=== PATIENT | female | born 1950 | race African-American/Black ===

== ENCOUNTER 2019-03-02 17:11 | Inpatient (IN) | payer MEDICARE, OTHER ==
--- NOTE | 2019-03-02 17:52 | ED Physician Chart ---
ED Chief Complaint/HPI - Patient Information Date Seen:: 03/02/19 Time Seen:: 17:20 Chief Complaint:: Agitation History of Present Illness:: onset x 2 days of agitation and anxiety; no report of trauma, SIs, H/As, neck pain, C/P, SOB, Abd. Pain, or urinary s/s Historian:: Patient, EMS Review:: Nurse's Note Reviewed, Old Chart Reviewed, EMS run form Reviewed ED Review of Systems - Review of Systems General/Constitutional: No fever, No chills, No weight loss, No weakness, No diaphoresis, No edema, No loss of appetite Skin: No skin lesions, No rash, No bruising Head: No headache, No light-headedness Eyes: No loss of vision, No pain, No diplopia ENT: No earache, No nasal drainage, No sore throat, No tinnitus Neck: No neck pain, No swelling, No thyromegaly, No stiffness, No mass noted Cardio Vascular: No chest pain, No palpitations, No PND, No orthopnea, No edema Pulmonary: No SOB, No cough, No sputum, No wheezing GI: No nausea, No vomiting, No diarrhea, No pain, No melena, No hematochezia, No constipation, No hematemesis G/U: No dysuria, No frequency, No hematuria, No nacturia Registered Radiographer: No vaginal discharge, No abnormal vaginal bleed, No contraction Musculoskeletal: No bone or joint pain, No back pain, No muscle pain Endocrine: No polyuria, No polydipsia Psychiatric: Prior psych history, Depression, Anxiety, No suicidal ideation, No homicidal ideation, No auditory hallucination, No visual hallucination Hematopoietic: No bruising, No lymphadenopathy Allergic/Immuno: No urticaria, No angioedema Neurological: No syncope, No focal symptoms, No weakness, No paresthesia, No headache, No seizure, No dizziness, No confusion, No vertigo ED Past Medical History - Past Medical History Obtainable: Yes Past Medical History: HTN Family History: HTN Social History: Non Smoker, No Alcohol, No Drug Use, Single, Care Facility Surgical History: None Psychiatricy History: Depression, Bipolar Medication: Reviewed ED Physical Exam - Physical Examination General/Constitutional: Awake, Well-developed, well-nourished, Alert, No distress, GCS 15, Non-toxic appearing, Ambulatory Head: Atraumatic Eyes: Lids, conjuctiva normal, PERRL, EOMI Skin: Nl inspection, No rash, No skin lesions, No ecchymosis, Well hydrated, No lymphadenopathy ENMT: External ears, nose nl, TM canals nl, Nasal exam nl, Lips, teeth, gums nl , Oropharynx nl, Tonsils nl Neck: Nontender, Full ROM w/o pain, No JVD, No nuchal rigidity, No bruit, No mass, No stridor Respiratory: Nl effort/Exclusion, Clear to Auscultation, No Wheeze/Rhonchi/Rales Cardio Vascular: RRR, No murmur, gallop, rubs, NL S1 S2, Carotid/Femoral/Distal pulses equal bilaterally GI: No tenderness/rebounding/guarding, No organomegaly, No hernia, Normal BS's, Nondistended, No mass/bruits, No McBurney tenderness : No CVA tenderness Extremities: No tenderness or effusion, Full ROM, normal strength in all extremities, No edema, Normal digits & nails Neuro/Psych: Alert/oriented, DTR's symmetric, Normal sensory exam, Normal motor strength, Judgement/insight normal, Mood normal, Normal gait, No focal deficits Other Neuro/Psych comments:: + Psychomotor Agitation; no SIs; Mood/Affect: Labile Misc: Normal back, No paraspinal tenderness ED Labs/Radiology/EKG Results - Lab Results Comments:: Reviewed - EKG Interpretations EKG Time:: 17:52 Rate & Rhythm: 74; NSR Comments:: non-specific st-t changes ED Septic Shock - . Is Septic Shock (SBP<90, OR Lactate>4 mmol\L) present?: No ED Reassessment (Disposition) - Reassessment Reassessment Condition:: Improved - Diagnosis Diagnosis:: Agitation; Medical Clearance; Bipolar Disorder - Aftercare/Follow up Instructions Aftercare/Follow-Up Instructions:: Counseled pt regarding lab results/diagnosis & need follow up, Counseled pt & family regarding lab results/diagnosis & need follow up - Patient Disposition Discharge/Transfer:: Acute Care w/in this hosp Admitted to:: [facility] Condition at Disposition:: Stable, Improved
[2019-03-02 18:29] LABS: % BASOPHILS 0.5 % (0.0-2.0); % EOSINOPHILS 1.6 % (0.0-5.0); % LYMPHOCYTES 30.2 % (20.0-50.0); % MONOCYTES 10.6 % (2.0-10.0); % NEUTROPHILS 57.1 % (40.0-80.0); EOSINOPHILE ABSOLUTE 0.1 Th/cmm (0.1-0.4); HEMATOCRIT 39.7 % (41.0-60); HEMOGLOBIN 12.8 gm/dL (12-16); LYMPHOCYTE ABSOLUTE 1.5 Th/cmm (1.5-3.0); MEAN CELL VOLUME 83.4 fl (81-100); MEAN CORPUSCULAR HEMOGLOBIN 26.8 pg (27.0-31.0); MEAN CORPUSCULAR HGB CONC 32.2 pg (28.0-36.0); MEAN PLATELET VOLUME 8.5 fl; MONOCYTE ABSOLUTE 0.5 Th/cmm (0.3-1.0); NEUTROPHILE ABSOLUTE 2.9 Th/cmm (1.8-8.0); PLATELET COUNT 196 Th/cmm (150-400); RED BLOOD COUNT 4.77 Mil/cmm (3.80-5.20); RED CELL DISTRIBUTION WIDTH 13.5 % (11.5-20.0)
[2019-03-02 18:51] LABS: ALB/GLOB RATIO 1.3 (1.0-1.8); ALKALINE PHOSPHATASE 52 U/L (34-104); ANION GAP 12.4 (7.0-16.0); BILIRUBIN,TOTAL 0.2 mg/dL (0.3-1.0); BUN - UREA NITROGEN 18 mg/dL (7-25); CALCIUM SERUM 9.3 mg/dL (8.6-10.3); CARBON DIOXIDE 28.7 mEq/L (21.0-31.0); CHLORIDE 101 mEq/L (98-107); CHOLESTEROL 167 mg/dL (<200); CREATININE - SERUM 0.6 mg/dL (0.6-1.2); GFR AFRICAN-AMERICAN > 60.0 ml/min (>90); GFR NON AFRICAN-AMERICAN > 60.0 ml/min; GLUCOSE 87 mg/dL (70-105); HDL -HIGH DENSITY LIPOPROTEIN 76 mg/dL (23-92); POTASSIUM SERUM 4.1 mEq/L (3.5-5.1); SGOT 16 U/L (13-39); SGPT/ALT 14 U/L (7-52); SODIUM SERUM 138 mEq/L (136-145); TRIGLYCERIDES 47 mg/dL (<150)
[2019-03-02 18:54] LABS: ACETAMINOPHEN < 10.0 ug/mL (10.0-30.0); SALICYLATES (ASPIRIN) < 25.0 mg/L (30.0-100.0)
[2019-03-02] MEDS ORDERED: Haloperidol Lactate 5 mg/mL 1mL Vial IM ONE (20:00)
[2019-03-02 20:11] VITALS: BP 106/66
[2019-03-02] MEDS ORDERED: Fleet Enema 135 mL RC PRN (23:04)
[2019-03-03] MEDS ORDERED: Fleet Enema 135 mL RC PRN (11:56)
--- NOTE | 2019-03-03 15:34 | History & Physical ---
ADMIT DATE: 03/02/2019 CHIEF COMPLAINT: Medical evaluation and clearance. HISTORY OF PRESENT ILLNESS: This is a 68-year-old -[place] female with history of left above the knee amputation, hypertension, constipation admitted from nursing facility. They will provide the service of Dr. Singh. The patient is not a best historian. Denies chest pain, shortness of breath. The patient was cleared medically through the ER. PAST MEDICAL HISTORY: As mentioned in history present illness. PAST SURGICAL HISTORY: Status post left above the knee amputation. ALLERGIES: No known drug allergies. MEDICATIONS: Tylenol, ____, magnesium, Colace, ____ enema, and Senna. FAMILY MEDICAL HISTORY: Noncontributory. SOCIAL HISTORY: The patient lives in shelter. The patient did smoke, drinks occasionally. REVIEW OF SYSTEMS: GENERAL: Complains of being sleepy. HEAD, EYES, EARS, NOSE, AND THROAT: No blurred vision. LUNGS: No diagnosis of COPD or asthma. HEART: Denies hypertension and diabetes. ABDOMEN: No nausea, vomiting, pain. GENITOURINARY: History of constipation. NEUROLOGIC: No seizure or syncope. PSYCHIATRIC: The patient with a left above the knee amputation. She does not want to tell me the reason behind the surgery. PHYSICAL EXAMINATION: VITAL SIGNS: Blood pressure 106/66, respiration rate is 20, pulse 73, temperature 98.0. GENERAL: Elderly female, appears her stated age. NECK: Supple. No mass. LUNGS: Equal breath sounds, otherwise clear to auscultation. HEART: Regular rate and rhythm without appreciable murmur. ABDOMEN: Soft, nontender, bowel sounds present. EXTREMITIES: Positive left above knee amputation. LABORATORY DATA: WBC 5, hemoglobin 12, hematocrit 39, platelets 186. Sodium 138, potassium 4.1, BUN 8, creatinine 0.6. Troponin negative. TSH 0.2. ASSESSMENT AND PLAN: Anemia, low TSH level, above knee amputation, hypertension, and constipation. Continue the patient on laxative. We will monitor the patient blood pressure closely and we will place patient on proper precaution. We will put the patient on non-steroidal anti-inflammatories. We will continue to monitor the patient closely. JOB# [id number]
[2019-03-03] MEDS: Magnesium Hydroxide (MOM) 30 mL UDC PO SCH (20:41)
--- NOTE | 2019-03-04 03:42 | Psychiatric Evaluation ---
DATE OF SERVICE: 03/02/2019 PATIENT'S AGE: 68. SEX: Female. PHYSICIAN: Dr. Suzanne Singh. CHIEF COMPLAINT: Agitation and aggressive behavior. HISTORY OF PRESENT ILLNESS: The patient is a 68-year-old female who is a resident in [facility]. The patient was transferred to [facility] because of increased agitation and aggressive behavior and the patient was showing more aggressive behavior towards the staff and she tried to hit staff. The patient also was noncompliant with redirections and not able to follow staff instructions. She also was refusing care including refusing to have vital signs taken. The patient has been more angry and more irritable and suspicious and paranoid. Upon arrival to the hospital, the patient started to throw objects towards the staff and she is also having difficulty following staff directions and had to be medicated to calm her down. PAST PSYCHIATRIC HISTORY: The patient has history of psychosis and also has history of schizophrenia. 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 She also has type 2 diabetes mellitus. Also, history of alcohol dependence, in remission. SOCIAL HISTORY: The patient lives in [facility]. No known legal issues or abuse issues. ALLERGIES: No known allergies. MENTAL STATUS EXAMINATION: The patient appears slightly older than her stated age. Anxious. Irritable mood. Flat affect. Thought processes are circumstantial with flight of ideas. The patient denies hallucinations or delusions, but seems to be actively responding. The patient denied suicidal or homicidal ideations, but was throwing objects towards the staff. The patient is alert and oriented to situation, but not to date or place. Intact immediate and recent memory and intact remote memory. Poor insight and poor judgment. Seems to be of average intelligence based on her verbal ability. ASSESSMENT: PRIMARY DIAGNOSIS: Schizophrenic disorder by history. The patient currently is psychotic. SECONDARY DIAGNOSIS: Rule out dementia. TREATMENT PLAN: We will monitor the patient's behavior and condition closely. We will start individual as well as milieu psychotherapy. We will monitor psychotropic medications and will cross titrate Seroquel with Risperdal that she is currently taking. ESTIMATED LENGTH OF STAY: 5-7 days. THE PATIENT'S STRENGTHS AND WEAKNESSES: The [facility]. WEAKNESSES: Resisting care and her poor impulse control. AFTER DISCHARGE PLAN: The patient will be discharged from the hospital with plans for outpatient treatment in [facility] when she returns there. CRITERIA FOR DISCHARGE: Better impulse control and stabilizing on psychotropic medications. JOB# [id number]
--- NOTE | 2019-03-04 11:49 | Internal Medicine Prog Note ---
Internal Medicine Subjective - Subjective Patient seen and examined:: with staff, chart reviewed Patient is:: awake, verbal, interactive, in bed Per staff patient has:: no adverse event, no episodes of fall, poor appetite, tolerating meds Internal Medicine Objective - Results Result Diagrams: 03/02/19 18:05 03/02/19 18:05 Recent Labs: Laboratory Last Values WBC 5.0 Th/cmm (4.8-10.8) 03/02/19 18:05 RBC 4.77 Mil/cmm (3.80-5.20) 03/02/19 18:05 Hgb 12.8 gm/dL (12-16) 03/02/19 18:05 Hct 39.7 % (41.0-60) L 03/02/19 18:05 MCV 83.4 fl (81-100) 03/02/19 18:05 MCH 26.8 pg (27.0-31.0) L 03/02/19 18:05 MCHC Differential 32.2 pg (28.0-36.0) 03/02/19 18:05 RDW 13.5 % (11.5-20.0) 03/02/19 18:05 Plt Count 196 Th/cmm (150-400) 03/02/19 18:05 MPV 8.5 fl 03/02/19 18:05 Neutrophils % 57.1 % (40.0-80.0) 03/02/19 18:05 Lymphocytes % 30.2 % (20.0-50.0) 03/02/19 18:05 Monocytes % 10.6 % (2.0-10.0) H 03/02/19 18:05 Eosinophils % 1.6 % (0.0-5.0) 03/02/19 18:05 Basophils % 0.5 % (0.0-2.0) 03/02/19 18:05 Sodium 138 mEq/L (136-145) 03/02/19 18:05 Potassium 4.1 mEq/L (3.5-5.1) 03/02/19 18:05 Chloride 101 mEq/L (98-107) 03/02/19 18:05 Carbon Dioxide 28.7 mEq/L (21.0-31.0) 03/02/19 18:05 Anion Gap 12.4 (7.0-16.0) 03/02/19 18:05 BUN 18 mg/dL (7-25) 03/02/19 18:05 Creatinine 0.6 mg/dL (0.6-1.2) 03/02/19 18:05 Est GFR ( Amer) > 60.0 ml/min (>90) 03/02/19 18:05 Est GFR (Non-Af Amer) > 60.0 ml/min 03/02/19 18:05 BUN/Creatinine Ratio 30.0 03/02/19 18:05 Glucose 87 mg/dL (70-105) 03/02/19 18:05 Calcium 9.3 mg/dL (8.6-10.3) 03/02/19 18:05 Total Bilirubin 0.2 mg/dL (0.3-1.0) L 03/02/19 18:05 AST 16 U/L (13-39) 03/02/19 18:05 ALT 14 U/L (7-52) 03/02/19 18:05 Alkaline Phosphatase 52 U/L (34-104) 03/02/19 18:05 Troponin I < 0.01 ng/mL (0.01-0.05) L 03/02/19 18:05 Total Protein 7.0 gm/dL (6.0-8.3) 03/02/19 18:05 Albumin 4.0 gm/dL (3.7-5.3) 03/02/19 18:05 Globulin 3.0 gm/dL 03/02/19 18:05 Albumin/Globulin Ratio 1.3 (1.0-1.8) 03/02/19 18:05 Triglycerides 47 mg/dL (<150) 03/02/19 18:05 Cholesterol 167 mg/dL (<200) 03/02/19 18:05 LDL Cholesterol Direct 66 mg/dL (75-193) L 03/02/19 18:05 HDL Cholesterol 76 mg/dL (23-92) 03/02/19 18:05 TSH 0.22 uIU/ml (0.34-5.60) L 03/02/19 18:05 Salicylates < 25.0 mg/L (30.0-100.0) L 03/02/19 18:05 Acetaminophen < 10.0 ug/mL (10.0-30.0) L 03/02/19 18:05 Ethyl Alcohol < 10 mg/dL (0-10) 03/02/19 18:05 - Physical Exam Vitals and I&O: Vital Signs Temp 97.1 F 03/04/19 06:47 Pulse 76 03/04/19 06:47 Resp 18 03/04/19 06:47 BP 100/60 03/04/19 06:47 Pulse Ox 94 03/04/19 06:47 Intake & Output 03/03/19 03/04/19 03/04/19 18:59 06:59 18:59 Intake Total 900 180 Balance 900 180 Intake: Oral 900 180 Other: # Voids 3 3 # Bowel Movements 1 0 Active Medications: Current Medications Acetaminophen (Tylenol) 650 mg PO Q4H PRN PRN Reason: Pain Or Fever above 101 Stop: 05/01/19 23:14 Bisacodyl (Dulcolax 10 Mg Supp) 10 mg RC DAILY PRN PRN Reason: Constipation Stop: 05/01/19 23:15 Bisacodyl (Dulcolax 10 Mg Supp) 10 mg RC DAILY PRN PRN Reason: Constipation Stop: 05/02/19 11:55 Docusate Sodium (Colace) 100 mg PO DAILY RANJAN Stop: 05/02/19 08:59 Last Admin: 03/04/19 08:14 Dose: 100 mg Lorazepam (Ativan) 0.5 mg PO Q4H PRN; Protocol PRN Reason: Anxiety Stop: 05/01/19 21:06 Last Admin: 03/04/19 08:15 Dose: 0.5 mg Magnesium Hydroxide (Milk Of Magnesia) 30 ml PO HS RANJAN Stop: 05/02/19 20:59 Last Admin: 03/03/19 20:41 Dose: 30 ml Quetiapine Fumarate (Seroquel) 50 mg PO HS RANJAN; Protocol Stop: 05/02/19 20:59 Risperidone (Risperdal) 1 mg PO DAILY RANJAN; Protocol Stop: 05/02/19 08:59 Last Admin: 03/04/19 08:15 Dose: 1 mg Senna (Senna) 17.2 mg PO HS RANJAN Stop: 05/02/19 20:59 Last Admin: 03/03/19 20:41 Dose: 17.2 mg Sodium Phosphate (Fleet Enema) 135 ml RC Q2D PRN PRN Reason: Constipation Stop: 05/01/19 23:03 Sodium Phosphate (Fleet Enema) 135 ml RC Q2D PRN PRN Reason: Constipation Stop: 05/02/19 11:55 Trazodone HCl (Desyrel) 25 mg PO HS RANJAN; Protocol Stop: 05/02/19 20:59 Last Admin: 03/03/19 20:41 Dose: 25 mg Zolpidem Tartrate (Ambien) 5 mg PO HS PRN PRN Reason: Insomnia Stop: 05/01/19 21:06 Last Admin: 03/03/19 20:42 Dose: 5 mg General: thin, appears older HEENT: NC/AT, PERRLA, EOMI, thinning hair Neck: Supple, No JVD Lungs: CTAB Cardiovascular: RRR, Normal S1, Normal S2, with murmur Abdomen: soft, thin, positive bowel sound Extremities: excoriation Neurological: no change Internal Medicine Assmt/Plan - Assessment Assessment: ASSESSMENT AND PLAN: Anemia, low TSH level, above knee amputation, hypertension, and constipation. - Plan Plan: PLAN: fall precaution Continue the patient on laxative. We will monitor the patient blood pressure closely and we will place patient on proper precaution. We will put the patient on non-steroidal anti-inflammatories. We will continue to monitor the patient closely.
[2019-03-04] MEDS: Magnesium Hydroxide (MOM) 30 mL UDC PO SCH (20:50)
--- NOTE | 2019-03-04 22:49 | Progress Notes ---
DATE: 03/04/2019 PSYCHIATRIC PROGRESS NOTE SUBJECTIVE: Chart reviewed and the patient interviewed. Also discussed the patient's condition with the staff and reviewed records and labs. The patient is still easily irritable and easily agitated. The patient also is still restless and she is still in angry and in irritable mood. The patient also is answering questions with anger and with yelling and screaming manner. The patient also is still having difficulty with interacting with others. She seems to be paranoid. Also, during my interview, the patient is disheveled and rambling with harsh tone voice. ASSESSMENT: The patient is still agitated and is still psychotic. TREATMENT PLAN: Continue to monitor her behavior and her condition closely. Also continue adjusting psychotropic medications. The patient continued to take Risperdal in a dose of 1 mg in the morning and trazodone 25 mg at bedtime. Seroquel was added at a dose of 50 mg at bedtime and we will continue to cross titrate Risperdal with Seroquel and continue to work on behavioral modification and follow up closely. JOB# [id number]
--- NOTE | 2019-03-05 10:34 | Internal Medicine Prog Note ---
Internal Medicine Subjective - Subjective Patient seen and examined:: with staff, chart reviewed Patient is:: awake, verbal, interactive, in bed Per staff patient has:: no adverse event, no episodes of fall, poor appetite, tolerating meds Internal Medicine Objective - Results Result Diagrams: 03/02/19 18:05 03/02/19 18:05 Recent Labs: Laboratory Last Values WBC 5.0 Th/cmm (4.8-10.8) 03/02/19 18:05 RBC 4.77 Mil/cmm (3.80-5.20) 03/02/19 18:05 Hgb 12.8 gm/dL (12-16) 03/02/19 18:05 Hct 39.7 % (41.0-60) L 03/02/19 18:05 MCV 83.4 fl (81-100) 03/02/19 18:05 MCH 26.8 pg (27.0-31.0) L 03/02/19 18:05 MCHC Differential 32.2 pg (28.0-36.0) 03/02/19 18:05 RDW 13.5 % (11.5-20.0) 03/02/19 18:05 Plt Count 196 Th/cmm (150-400) 03/02/19 18:05 MPV 8.5 fl 03/02/19 18:05 Neutrophils % 57.1 % (40.0-80.0) 03/02/19 18:05 Lymphocytes % 30.2 % (20.0-50.0) 03/02/19 18:05 Monocytes % 10.6 % (2.0-10.0) H 03/02/19 18:05 Eosinophils % 1.6 % (0.0-5.0) 03/02/19 18:05 Basophils % 0.5 % (0.0-2.0) 03/02/19 18:05 Sodium 138 mEq/L (136-145) 03/02/19 18:05 Potassium 4.1 mEq/L (3.5-5.1) 03/02/19 18:05 Chloride 101 mEq/L (98-107) 03/02/19 18:05 Carbon Dioxide 28.7 mEq/L (21.0-31.0) 03/02/19 18:05 Anion Gap 12.4 (7.0-16.0) 03/02/19 18:05 BUN 18 mg/dL (7-25) 03/02/19 18:05 Creatinine 0.6 mg/dL (0.6-1.2) 03/02/19 18:05 Est GFR ( Amer) > 60.0 ml/min (>90) 03/02/19 18:05 Est GFR (Non-Af Amer) > 60.0 ml/min 03/02/19 18:05 BUN/Creatinine Ratio 30.0 03/02/19 18:05 Glucose 87 mg/dL (70-105) 03/02/19 18:05 Calcium 9.3 mg/dL (8.6-10.3) 03/02/19 18:05 Total Bilirubin 0.2 mg/dL (0.3-1.0) L 03/02/19 18:05 AST 16 U/L (13-39) 03/02/19 18:05 ALT 14 U/L (7-52) 03/02/19 18:05 Alkaline Phosphatase 52 U/L (34-104) 03/02/19 18:05 Troponin I < 0.01 ng/mL (0.01-0.05) L 03/02/19 18:05 Total Protein 7.0 gm/dL (6.0-8.3) 03/02/19 18:05 Albumin 4.0 gm/dL (3.7-5.3) 03/02/19 18:05 Globulin 3.0 gm/dL 03/02/19 18:05 Albumin/Globulin Ratio 1.3 (1.0-1.8) 03/02/19 18:05 Triglycerides 47 mg/dL (<150) 03/02/19 18:05 Cholesterol 167 mg/dL (<200) 03/02/19 18:05 LDL Cholesterol Direct 66 mg/dL (75-193) L 03/02/19 18:05 HDL Cholesterol 76 mg/dL (23-92) 03/02/19 18:05 TSH 0.22 uIU/ml (0.34-5.60) L 03/02/19 18:05 Salicylates < 25.0 mg/L (30.0-100.0) L 03/02/19 18:05 Acetaminophen < 10.0 ug/mL (10.0-30.0) L 03/02/19 18:05 Ethyl Alcohol < 10 mg/dL (0-10) 03/02/19 18:05 RPR NONREACTIVE (NONREACTIVE) 03/02/19 18:05 - Physical Exam Vitals and I&O: Vital Signs Temp 97.4 F 03/05/19 06:28 Pulse 68 03/05/19 06:28 Resp 18 03/05/19 06:28 BP 112/68 03/05/19 06:28 Pulse Ox 96 03/05/19 06:28 Intake & Output 03/04/19 03/05/19 03/05/19 18:59 06:59 18:59 Intake Total 1000 120 Balance 1000 120 Intake: Oral 1000 120 Other: # Voids 3 2 # Bowel Movements 1 0 Active Medications: Current Medications Acetaminophen (Tylenol) 650 mg PO Q4H PRN PRN Reason: Pain Or Fever above 101 Stop: 05/01/19 23:14 Bisacodyl (Dulcolax 10 Mg Supp) 10 mg RC DAILY PRN PRN Reason: Constipation Stop: 05/01/19 23:15 Bisacodyl (Dulcolax 10 Mg Supp) 10 mg RC DAILY PRN PRN Reason: Constipation Stop: 05/02/19 11:55 Docusate Sodium (Colace) 100 mg PO DAILY RANJAN Stop: 05/02/19 08:59 Last Admin: 03/05/19 09:02 Dose: 100 mg Lorazepam (Ativan) 0.5 mg PO Q4H PRN; Protocol PRN Reason: Anxiety Stop: 05/01/19 21:06 Last Admin: 03/04/19 08:15 Dose: 0.5 mg Magnesium Hydroxide (Milk Of Magnesia) 30 ml PO HS RANJAN Stop: 05/02/19 20:59 Last Admin: 03/04/19 20:50 Dose: 30 ml Quetiapine Fumarate (Seroquel) 50 mg PO HS RANJAN; Protocol Stop: 05/02/19 20:59 Last Admin: 03/04/19 20:50 Dose: 50 mg Quetiapine Fumarate (Seroquel) 25 mg PO DAILY RANJAN; Protocol Stop: 05/04/19 08:59 Senna (Senna) 17.2 mg PO HS RANJAN Stop: 05/02/19 20:59 Last Admin: 03/04/19 20:50 Dose: 17.2 mg Sodium Phosphate (Fleet Enema) 135 ml RC Q2D PRN PRN Reason: Constipation Stop: 05/01/19 23:03 Sodium Phosphate (Fleet Enema) 135 ml RC Q2D PRN PRN Reason: Constipation Stop: 05/02/19 11:55 Trazodone HCl (Desyrel) 25 mg PO HS RANJAN; Protocol Stop: 05/02/19 20:59 Last Admin: 03/04/19 20:50 Dose: 25 mg Zolpidem Tartrate (Ambien) 5 mg PO HS PRN PRN Reason: Insomnia Stop: 05/01/19 21:06 Last Admin: 03/04/19 20:52 Dose: 5 mg General: thin, appears older HEENT: NC/AT, PERRLA, EOMI, thinning hair Neck: Supple, No JVD Lungs: CTAB Cardiovascular: RRR, Normal S1, Normal S2, with murmur Abdomen: soft, thin, positive bowel sound Extremities: excoriation Neurological: no change Internal Medicine Assmt/Plan - Assessment Assessment: ASSESSMENT AND PLAN: Anemia, low TSH level, above knee amputation, hypertension, and constipation. - Plan Plan: PLAN: fall precaution Continue the patient on laxative. We will monitor the patient blood pressure closely and we will place patient on proper precaution. We will put the patient on non-steroidal anti-inflammatories. We will continue to monitor the patient closely.
[2019-03-05] MEDS: Magnesium Hydroxide (MOM) 30 mL UDC PO SCH (20:39)
--- NOTE | 2019-03-06 00:39 | Progress Notes ---
DATE: SUBJECTIVE: Chart reviewed and the patient interviewed. Also discussed the patient's condition with the staff and reviewed records and labs. The patient is still anxious and he is still depressed and withdrawn. The patient also is still easily agitated and wants to be left alone. Also, at times she seems to be confused and restless. Otherwise, the patient is compliant with taking Risperdal and Seroquel. ASSESSMENT: The patient is still anxious and he still needs a lot of redirections. TREATMENT PLAN: We will monitor and her condition closely. Also, we will start Risperdal and we will increase Seroquel to 25 mg in the morning and 50 mg at bedtime. Also, we will continue to work on her poor impulse control and in coping and we will continue to follow up. JOB# [id number]
--- NOTE | 2019-03-06 10:19 | Internal Medicine Prog Note ---
Internal Medicine Subjective - Subjective Service Date: 03/06/19 Patient is:: awake, verbal, interactive, in bed Per staff patient has:: no adverse event, no episodes of fall, poor appetite, tolerating meds Internal Medicine Objective - Results Result Diagrams: 03/02/19 18:05 03/02/19 18:05 Recent Labs: Laboratory Last Values WBC 5.0 Th/cmm (4.8-10.8) 03/02/19 18:05 RBC 4.77 Mil/cmm (3.80-5.20) 03/02/19 18:05 Hgb 12.8 gm/dL (12-16) 03/02/19 18:05 Hct 39.7 % (41.0-60) L 03/02/19 18:05 MCV 83.4 fl (81-100) 03/02/19 18:05 MCH 26.8 pg (27.0-31.0) L 03/02/19 18:05 MCHC Differential 32.2 pg (28.0-36.0) 03/02/19 18:05 RDW 13.5 % (11.5-20.0) 03/02/19 18:05 Plt Count 196 Th/cmm (150-400) 03/02/19 18:05 MPV 8.5 fl 03/02/19 18:05 Neutrophils % 57.1 % (40.0-80.0) 03/02/19 18:05 Lymphocytes % 30.2 % (20.0-50.0) 03/02/19 18:05 Monocytes % 10.6 % (2.0-10.0) H 03/02/19 18:05 Eosinophils % 1.6 % (0.0-5.0) 03/02/19 18:05 Basophils % 0.5 % (0.0-2.0) 03/02/19 18:05 Sodium 138 mEq/L (136-145) 03/02/19 18:05 Potassium 4.1 mEq/L (3.5-5.1) 03/02/19 18:05 Chloride 101 mEq/L (98-107) 03/02/19 18:05 Carbon Dioxide 28.7 mEq/L (21.0-31.0) 03/02/19 18:05 Anion Gap 12.4 (7.0-16.0) 03/02/19 18:05 BUN 18 mg/dL (7-25) 03/02/19 18:05 Creatinine 0.6 mg/dL (0.6-1.2) 03/02/19 18:05 Est GFR ( Amer) > 60.0 ml/min (>90) 03/02/19 18:05 Est GFR (Non-Af Amer) > 60.0 ml/min 03/02/19 18:05 BUN/Creatinine Ratio 30.0 03/02/19 18:05 Glucose 87 mg/dL (70-105) 03/02/19 18:05 Calcium 9.3 mg/dL (8.6-10.3) 03/02/19 18:05 Total Bilirubin 0.2 mg/dL (0.3-1.0) L 03/02/19 18:05 AST 16 U/L (13-39) 03/02/19 18:05 ALT 14 U/L (7-52) 03/02/19 18:05 Alkaline Phosphatase 52 U/L (34-104) 03/02/19 18:05 Troponin I < 0.01 ng/mL (0.01-0.05) L 03/02/19 18:05 Total Protein 7.0 gm/dL (6.0-8.3) 03/02/19 18:05 Albumin 4.0 gm/dL (3.7-5.3) 03/02/19 18:05 Globulin 3.0 gm/dL 03/02/19 18:05 Albumin/Globulin Ratio 1.3 (1.0-1.8) 03/02/19 18:05 Triglycerides 47 mg/dL (<150) 03/02/19 18:05 Cholesterol 167 mg/dL (<200) 03/02/19 18:05 LDL Cholesterol Direct 66 mg/dL (75-193) L 03/02/19 18:05 HDL Cholesterol 76 mg/dL (23-92) 03/02/19 18:05 TSH 0.22 uIU/ml (0.34-5.60) L 03/02/19 18:05 Salicylates < 25.0 mg/L (30.0-100.0) L 03/02/19 18:05 Acetaminophen < 10.0 ug/mL (10.0-30.0) L 03/02/19 18:05 Ethyl Alcohol < 10 mg/dL (0-10) 03/02/19 18:05 RPR NONREACTIVE (NONREACTIVE) 03/02/19 18:05 - Physical Exam Vitals and I&O: Vital Signs Temp 98.4 F 03/06/19 06:18 Pulse 85 03/06/19 06:18 Resp 19 03/06/19 06:18 BP 103/68 03/06/19 06:18 Pulse Ox 97 03/06/19 06:18 Intake & Output 03/05/19 03/06/19 03/06/19 18:59 06:59 18:59 Intake Total 950 300 Balance 950 300 Intake: Oral 950 300 Other: # Voids 4 1 # Bowel Movements 1 0 Active Medications: Current Medications Acetaminophen (Tylenol) 650 mg PO Q4H PRN PRN Reason: Pain Or Fever above 101 Stop: 05/01/19 23:14 Bisacodyl (Dulcolax 10 Mg Supp) 10 mg RC DAILY PRN PRN Reason: Constipation Stop: 05/01/19 23:15 Bisacodyl (Dulcolax 10 Mg Supp) 10 mg RC DAILY PRN PRN Reason: Constipation Stop: 05/02/19 11:55 Docusate Sodium (Colace) 100 mg PO DAILY RANJAN Stop: 05/02/19 08:59 Last Admin: 03/06/19 08:59 Dose: 100 mg Lorazepam (Ativan) 0.5 mg PO Q4H PRN; Protocol PRN Reason: Anxiety Stop: 05/01/19 21:06 Last Admin: 03/04/19 08:15 Dose: 0.5 mg Magnesium Hydroxide (Milk Of Magnesia) 30 ml PO HS RANJAN Stop: 05/02/19 20:59 Last Admin: 03/05/19 20:39 Dose: Not Given Quetiapine Fumarate (Seroquel) 50 mg PO HS RANJAN; Protocol Stop: 05/02/19 20:59 Last Admin: 03/05/19 20:39 Dose: Not Given Quetiapine Fumarate (Seroquel) 25 mg PO DAILY RANJAN; Protocol Stop: 05/04/19 08:59 Senna (Senna) 17.2 mg PO HS RANJAN Stop: 05/02/19 20:59 Last Admin: 03/05/19 20:39 Dose: Not Given Sodium Phosphate (Fleet Enema) 135 ml RC Q2D PRN PRN Reason: Constipation Stop: 05/01/19 23:03 Sodium Phosphate (Fleet Enema) 135 ml RC Q2D PRN PRN Reason: Constipation Stop: 05/02/19 11:55 Trazodone HCl (Desyrel) 25 mg PO HS RANJAN; Protocol Stop: 05/02/19 20:59 Last Admin: 03/05/19 20:32 Dose: 25 mg Zolpidem Tartrate (Ambien) 5 mg PO HS PRN PRN Reason: Insomnia Stop: 05/01/19 21:06 Last Admin: 03/04/19 20:52 Dose: 5 mg General: thin, appears older HEENT: NC/AT, PERRLA, EOMI, thinning hair Neck: Supple, No JVD Lungs: CTAB Cardiovascular: RRR, Normal S1, Normal S2, with murmur Abdomen: soft, thin, positive bowel sound Extremities: excoriation Neurological: no change Internal Medicine Assmt/Plan - Assessment Assessment: Anemia, low TSH level, above knee amputation, hypertension, and constipation. - Plan Plan: fall precautions continue current plan of care Nutritional Asmnt/Malnutr-PDOC - Dietary Evaluation Malnutrition Findings (Please click <Entered> for more info): Nutritional Asmnt/Malnutrition Start: 03/05/19 10: 32 Text: Status: Complete Freq: Protocol: Document 03/05/19 10:32 LCHENG (Rec: 03/05/19 10:40 [email or web address] [email or web address]) Nutritional Asmnt/Malnutrition Patient General Information Nutritional Screening Moderate Risk Diagnosis psychosis Pertinent Medical Hx/Surgical Hx HTN Subjective Information Per EMR, PO intake 100%. Current Diet Order/ Nutrition Support CCHO Pertinent Medications colace, seroquel, senna Pertinent Labs 03/02 reviewed Nutritional Hx/Data Height 5 ft 4 in Height (Calculated Centimeters) 162.6 Current Weight (lbs) 110 lb Weight (Calculated Kilograms) 49.9 Weight (Calculated Grams) 55304.2 [place] Body Weight 120 Body Mass Index (BMI) 18.8 Weight Status Approriate GI Symptoms GI Symptoms None Last BM 03/04 Difficult in: None Skin Integrity/Comment: intact Current %PO Good (75-100%) Estimated Nutritional Goals BEE in Kcals: Using Current wt Calories/Kcals/Kg 25-30 Kcals Calculated 4131-6094 Protein: Using Current wt Protein g/k Protein Calculated 50 Fluid: ml 1250-1500ml (1ml/kcal) Nutritional Problem No current Nutrition Prob Problem N/A Malnutrition Alert Is there a minimum of two criteria No selected? Query Text:Check all the applicable criteria. A minimum of two criteria are recommended for diagnosis of either severe or non-severe malnutrition. Malnutrition Related to Morbid Obesity Malnutrition related to morbid obesity No Intervention/Recommendation Comments 1. Continue with [facility] diet as ordered. 2. Monitor PO intake, wt, labs and skin integrity 3. F/U as low risk in 7 days Expected Outcomes/Goals Expected Outcomes/Goals 1. PO intake to meet at least 75% of nutritional needs. 2. Wt stability, skin to remain intact, labs to approach WNL.
[2019-03-06] MEDS: Magnesium Hydroxide (MOM) 30 mL UDC PO SCH (21:08)
--- NOTE | 2019-03-07 04:44 | Progress Notes ---
DATE: 03/06/[address] Singh. SUBJECTIVE: Case was discussed with staff of the patient, reviewed records. This is a 68-year-old female, who came from [facility] because of increasing agitation and aggressive behavior. She was too aggressive towards staff. She is trying to hit staff, noncompliant with redirection and medication, refusing care, refusing to have vital signs taken, suspicious, paranoid, try to throw objects towards the staff. The patient continues to be withdrawn, isolating herself, anxious, easily agitated. The Seroquel was increased yesterday to 25 mg in the morning and 50 mg at bedtime. She continues to be easily agitated, continues to have poor insight, unable to make safe plan for self-care. No side effects to the medication, no sedation, no nausea, and no extrapyramidal symptoms. We will continue to work with the patient in group therapy, milieu therapy, and adjust the medications as needed. JOB# [id number]
--- NOTE | 2019-03-07 13:24 | Progress Notes ---
DATE: 03/07/2019 Case was discussed with staff of the patient, reviewed records. The patient continues to be irritable, easily agitated, continues to have poor insight about her behavior, tried to hit staff, unpredictable and impulsive, needing redirection. She is sleeping better, eating better. No side effects from the medication, no sedation, no nausea, no extrapyramidal symptoms. We will continue to work with the patient in group therapy, milieu therapy, and adjust the medication as needed. JOB# [id number]
--- NOTE | 2019-03-07 16:04 | Internal Medicine Prog Note ---
Internal Medicine Subjective - Subjective Service Date: 03/07/19 Patient is:: awake, verbal, interactive, in bed Per staff patient has:: no adverse event, no episodes of fall, poor appetite, tolerating meds Internal Medicine Objective - Results Result Diagrams: 03/02/19 18:05 03/02/19 18:05 Recent Labs: Laboratory Last Values WBC 5.0 Th/cmm (4.8-10.8) 03/02/19 18:05 RBC 4.77 Mil/cmm (3.80-5.20) 03/02/19 18:05 Hgb 12.8 gm/dL (12-16) 03/02/19 18:05 Hct 39.7 % (41.0-60) L 03/02/19 18:05 MCV 83.4 fl (81-100) 03/02/19 18:05 MCH 26.8 pg (27.0-31.0) L 03/02/19 18:05 MCHC Differential 32.2 pg (28.0-36.0) 03/02/19 18:05 RDW 13.5 % (11.5-20.0) 03/02/19 18:05 Plt Count 196 Th/cmm (150-400) 03/02/19 18:05 MPV 8.5 fl 03/02/19 18:05 Neutrophils % 57.1 % (40.0-80.0) 03/02/19 18:05 Lymphocytes % 30.2 % (20.0-50.0) 03/02/19 18:05 Monocytes % 10.6 % (2.0-10.0) H 03/02/19 18:05 Eosinophils % 1.6 % (0.0-5.0) 03/02/19 18:05 Basophils % 0.5 % (0.0-2.0) 03/02/19 18:05 Sodium 138 mEq/L (136-145) 03/02/19 18:05 Potassium 4.1 mEq/L (3.5-5.1) 03/02/19 18:05 Chloride 101 mEq/L (98-107) 03/02/19 18:05 Carbon Dioxide 28.7 mEq/L (21.0-31.0) 03/02/19 18:05 Anion Gap 12.4 (7.0-16.0) 03/02/19 18:05 BUN 18 mg/dL (7-25) 03/02/19 18:05 Creatinine 0.6 mg/dL (0.6-1.2) 03/02/19 18:05 Est GFR ( Amer) > 60.0 ml/min (>90) 03/02/19 18:05 Est GFR (Non-Af Amer) > 60.0 ml/min 03/02/19 18:05 BUN/Creatinine Ratio 30.0 03/02/19 18:05 Glucose 87 mg/dL (70-105) 03/02/19 18:05 Calcium 9.3 mg/dL (8.6-10.3) 03/02/19 18:05 Total Bilirubin 0.2 mg/dL (0.3-1.0) L 03/02/19 18:05 AST 16 U/L (13-39) 03/02/19 18:05 ALT 14 U/L (7-52) 03/02/19 18:05 Alkaline Phosphatase 52 U/L (34-104) 03/02/19 18:05 Troponin I < 0.01 ng/mL (0.01-0.05) L 03/02/19 18:05 Total Protein 7.0 gm/dL (6.0-8.3) 03/02/19 18:05 Albumin 4.0 gm/dL (3.7-5.3) 03/02/19 18:05 Globulin 3.0 gm/dL 03/02/19 18:05 Albumin/Globulin Ratio 1.3 (1.0-1.8) 03/02/19 18:05 Triglycerides 47 mg/dL (<150) 03/02/19 18:05 Cholesterol 167 mg/dL (<200) 03/02/19 18:05 LDL Cholesterol Direct 66 mg/dL (75-193) L 03/02/19 18:05 HDL Cholesterol 76 mg/dL (23-92) 03/02/19 18:05 TSH 0.22 uIU/ml (0.34-5.60) L 03/02/19 18:05 Salicylates < 25.0 mg/L (30.0-100.0) L 03/02/19 18:05 Acetaminophen < 10.0 ug/mL (10.0-30.0) L 03/02/19 18:05 Ethyl Alcohol < 10 mg/dL (0-10) 03/02/19 18:05 RPR NONREACTIVE (NONREACTIVE) 03/02/19 18:05 - Physical Exam Vitals and I&O: Vital Signs Temp 98.2 F 03/07/19 06:33 Pulse 63 03/07/19 06:33 Resp 18 03/07/19 08:00 BP 104/65 03/07/19 06:33 Pulse Ox 97 03/07/19 06:33 Intake & Output 03/06/19 03/07/19 03/07/19 18:59 06:59 18:59 Intake Total 1000 120 Balance 1000 120 Intake: Oral 1000 120 Other: # Voids 4 3 # Bowel Movements 1 Active Medications: Current Medications Acetaminophen (Tylenol) 650 mg PO Q4H PRN PRN Reason: Pain Or Fever above 101 Stop: 05/01/19 23:14 Bisacodyl (Dulcolax 10 Mg Supp) 10 mg RC DAILY PRN PRN Reason: Constipation Stop: 05/01/19 23:15 Bisacodyl (Dulcolax 10 Mg Supp) 10 mg RC DAILY PRN PRN Reason: Constipation Stop: 05/02/19 11:55 Docusate Sodium (Colace) 100 mg PO DAILY RANJAN Stop: 05/02/19 08:59 Last Admin: 03/07/19 09:06 Dose: 100 mg Lorazepam (Ativan) 0.5 mg PO Q4H PRN; Protocol PRN Reason: Anxiety Stop: 05/01/19 21:06 Last Admin: 03/04/19 08:15 Dose: 0.5 mg Magnesium Hydroxide (Milk Of Magnesia) 30 ml PO HS RANJAN Stop: 05/02/19 20:59 Last Admin: 03/06/19 21:08 Dose: 30 ml Quetiapine Fumarate (Seroquel) 50 mg PO HS RANJAN; Protocol Stop: 05/02/19 20:59 Last Admin: 03/06/19 21:08 Dose: 50 mg Quetiapine Fumarate (Seroquel) 25 mg PO DAILY RANJAN; Protocol Stop: 05/04/19 08:59 Senna (Senna) 17.2 mg PO HS RANJAN Stop: 05/02/19 20:59 Last Admin: 03/06/19 21:07 Dose: 17.2 mg Sodium Phosphate (Fleet Enema) 135 ml RC Q2D PRN PRN Reason: Constipation Stop: 05/01/19 23:03 Sodium Phosphate (Fleet Enema) 135 ml RC Q2D PRN PRN Reason: Constipation Stop: 05/02/19 11:55 Trazodone HCl (Desyrel) 25 mg PO HS RANJAN; Protocol Stop: 05/02/19 20:59 Last Admin: 03/06/19 21:08 Dose: 25 mg Zolpidem Tartrate (Ambien) 5 mg PO HS PRN PRN Reason: Insomnia Stop: 05/01/19 21:06 Last Admin: 03/04/19 20:52 Dose: 5 mg General: thin, appears older HEENT: NC/AT, PERRLA, EOMI, thinning hair Neck: Supple, No JVD Lungs: CTAB Cardiovascular: RRR, Normal S1, Normal S2, with murmur Abdomen: soft, thin, positive bowel sound Extremities: excoriation Neurological: no change Internal Medicine Assmt/Plan - Assessment Assessment: Anemia, low TSH level, above knee amputation, hypertension, and constipation. - Plan Plan: fall precautions continue current plan of care Nutritional Asmnt/Malnutr-PDOC - Dietary Evaluation Malnutrition Findings (Please click <Entered> for more info): Nutritional Asmnt/Malnutrition Start: 03/05/19 10: 32 Text: Status: Complete Freq: Protocol: Document 03/05/19 10:32 LCHENG (Rec: 03/05/19 10:40 LCHENG [email or web address]) Nutritional Asmnt/Malnutrition Patient General Information Nutritional Screening Moderate Risk Diagnosis psychosis Pertinent Medical Hx/Surgical Hx HTN Subjective Information Per EMR, PO intake 100%. Current Diet Order/ Nutrition Support CCHO Pertinent Medications colace, seroquel, senna Pertinent Labs 03/02 reviewed Nutritional Hx/Data Height 5 ft 4 in Height (Calculated Centimeters) 162.6 Current Weight (lbs) 110 lb Weight (Calculated Kilograms) 49.9 Weight (Calculated Grams) 48536.2 [place] Body Weight 120 Body Mass Index (BMI) 18.8 Weight Status Approriate GI Symptoms GI Symptoms None Last BM 03/04 Difficult in: None Skin Integrity/Comment: intact Current %PO Good (75-100%) Estimated Nutritional Goals BEE in Kcals: Using Current wt Calories/Kcals/Kg 25-30 Kcals Calculated 6422-8826 Protein: Using Current wt Protein g/k Protein Calculated 50 Fluid: ml 1250-1500ml (1ml/kcal) Nutritional Problem No current Nutrition Prob Problem N/A Malnutrition Alert Is there a minimum of two criteria No selected? Query Text:Check all the applicable criteria. A minimum of two criteria are recommended for diagnosis of either severe or non-severe malnutrition. Malnutrition Related to Morbid Obesity Malnutrition related to morbid obesity No Intervention/Recommendation Comments 1. Continue with [facility] diet as ordered. 2. Monitor PO intake, wt, labs and skin integrity 3. F/U as low risk in 7 days Expected Outcomes/Goals Expected Outcomes/Goals 1. PO intake to meet at least 75% of nutritional needs. 2. Wt stability, skin to remain intact, labs to approach WNL.
[2019-03-07] MEDS: Magnesium Hydroxide (MOM) 30 mL UDC PO SCH (21:13)
--- NOTE | 2019-03-08 16:54 | Internal Medicine Prog Note ---
Internal Medicine Subjective - Subjective Service Date: 03/08/19 Patient is:: awake, verbal, interactive, in bed Per staff patient has:: no adverse event, no episodes of fall, poor appetite, tolerating meds Internal Medicine Objective - Results Result Diagrams: 03/02/19 18:05 03/02/19 18:05 Recent Labs: Laboratory Last Values WBC 5.0 Th/cmm (4.8-10.8) 03/02/19 18:05 RBC 4.77 Mil/cmm (3.80-5.20) 03/02/19 18:05 Hgb 12.8 gm/dL (12-16) 03/02/19 18:05 Hct 39.7 % (41.0-60) L 03/02/19 18:05 MCV 83.4 fl (81-100) 03/02/19 18:05 MCH 26.8 pg (27.0-31.0) L 03/02/19 18:05 MCHC Differential 32.2 pg (28.0-36.0) 03/02/19 18:05 RDW 13.5 % (11.5-20.0) 03/02/19 18:05 Plt Count 196 Th/cmm (150-400) 03/02/19 18:05 MPV 8.5 fl 03/02/19 18:05 Neutrophils % 57.1 % (40.0-80.0) 03/02/19 18:05 Lymphocytes % 30.2 % (20.0-50.0) 03/02/19 18:05 Monocytes % 10.6 % (2.0-10.0) H 03/02/19 18:05 Eosinophils % 1.6 % (0.0-5.0) 03/02/19 18:05 Basophils % 0.5 % (0.0-2.0) 03/02/19 18:05 Sodium 138 mEq/L (136-145) 03/02/19 18:05 Potassium 4.1 mEq/L (3.5-5.1) 03/02/19 18:05 Chloride 101 mEq/L (98-107) 03/02/19 18:05 Carbon Dioxide 28.7 mEq/L (21.0-31.0) 03/02/19 18:05 Anion Gap 12.4 (7.0-16.0) 03/02/19 18:05 BUN 18 mg/dL (7-25) 03/02/19 18:05 Creatinine 0.6 mg/dL (0.6-1.2) 03/02/19 18:05 Est GFR ( Amer) > 60.0 ml/min (>90) 03/02/19 18:05 Est GFR (Non-Af Amer) > 60.0 ml/min 03/02/19 18:05 BUN/Creatinine Ratio 30.0 03/02/19 18:05 Glucose 87 mg/dL (70-105) 03/02/19 18:05 Calcium 9.3 mg/dL (8.6-10.3) 03/02/19 18:05 Total Bilirubin 0.2 mg/dL (0.3-1.0) L 03/02/19 18:05 AST 16 U/L (13-39) 03/02/19 18:05 ALT 14 U/L (7-52) 03/02/19 18:05 Alkaline Phosphatase 52 U/L (34-104) 03/02/19 18:05 Troponin I < 0.01 ng/mL (0.01-0.05) L 03/02/19 18:05 Total Protein 7.0 gm/dL (6.0-8.3) 03/02/19 18:05 Albumin 4.0 gm/dL (3.7-5.3) 03/02/19 18:05 Globulin 3.0 gm/dL 03/02/19 18:05 Albumin/Globulin Ratio 1.3 (1.0-1.8) 03/02/19 18:05 Triglycerides 47 mg/dL (<150) 03/02/19 18:05 Cholesterol 167 mg/dL (<200) 03/02/19 18:05 LDL Cholesterol Direct 66 mg/dL (75-193) L 03/02/19 18:05 HDL Cholesterol 76 mg/dL (23-92) 03/02/19 18:05 TSH 0.22 uIU/ml (0.34-5.60) L 03/02/19 18:05 Salicylates < 25.0 mg/L (30.0-100.0) L 03/02/19 18:05 Acetaminophen < 10.0 ug/mL (10.0-30.0) L 03/02/19 18:05 Ethyl Alcohol < 10 mg/dL (0-10) 03/02/19 18:05 RPR NONREACTIVE (NONREACTIVE) 03/02/19 18:05 - Physical Exam Vitals and I&O: Vital Signs Temp 97.0 F 03/08/19 08:37 Pulse 65 03/08/19 08:37 Resp 19 03/08/19 08:37 BP 109/70 03/08/19 08:37 Pulse Ox 100 03/08/19 08:37 Intake & Output 03/07/19 03/08/19 03/08/19 18:59 06:59 18:59 Intake Total 120 Balance 120 Intake: Oral 120 Other: # Voids 3 Active Medications: Current Medications Acetaminophen (Tylenol) 650 mg PO Q4H PRN PRN Reason: Pain Or Fever above 101 Stop: 05/01/19 23:14 Last Admin: 03/08/19 09:18 Dose: 650 mg Bisacodyl (Dulcolax 10 Mg Supp) 10 mg RC DAILY PRN PRN Reason: Constipation Stop: 05/01/19 23:15 Bisacodyl (Dulcolax 10 Mg Supp) 10 mg RC DAILY PRN PRN Reason: Constipation Stop: 05/02/19 11:55 Docusate Sodium (Colace) 100 mg PO DAILY RANJAN Stop: 05/02/19 08:59 Last Admin: 03/08/19 09:13 Dose: 100 mg Lorazepam (Ativan) 0.5 mg PO Q4H PRN; Protocol PRN Reason: Anxiety Stop: 05/01/19 21:06 Last Admin: 03/04/19 08:15 Dose: 0.5 mg Magnesium Hydroxide (Milk Of Magnesia) 30 ml PO HS RANJAN Stop: 05/02/19 20:59 Last Admin: 03/07/19 21:13 Dose: 30 ml Quetiapine Fumarate (Seroquel) 50 mg PO HS RANJAN; Protocol Stop: 05/02/19 20:59 Last Admin: 03/07/19 21:13 Dose: 50 mg Quetiapine Fumarate (Seroquel) 25 mg PO DAILY RANJAN; Protocol Stop: 05/04/19 08:59 Last Admin: 03/08/19 09:19 Dose: 25 mg Senna (Senna) 17.2 mg PO HS RANJAN Stop: 05/02/19 20:59 Last Admin: 03/07/19 21:14 Dose: 17.2 mg Sodium Phosphate (Fleet Enema) 135 ml RC Q2D PRN PRN Reason: Constipation Stop: 05/01/19 23:03 Sodium Phosphate (Fleet Enema) 135 ml RC Q2D PRN PRN Reason: Constipation Stop: 05/02/19 11:55 Trazodone HCl (Desyrel) 25 mg PO HS RANJAN; Protocol Stop: 05/02/19 20:59 Last Admin: 03/07/19 21:14 Dose: 25 mg Zolpidem Tartrate (Ambien) 5 mg PO HS PRN PRN Reason: Insomnia Stop: 05/01/19 21:06 Last Admin: 03/07/19 21:21 Dose: 5 mg General: thin, appears older HEENT: NC/AT, PERRLA, EOMI, thinning hair Neck: Supple, No JVD Lungs: CTAB Cardiovascular: RRR, Normal S1, Normal S2, with murmur Abdomen: soft, thin, positive bowel sound Extremities: excoriation Neurological: no change Internal Medicine Assmt/Plan - Assessment Assessment: Anemia, low TSH level, above knee amputation, hypertension, and constipation. - Plan Plan: fall precautions continue current plan of care Nutritional Asmnt/Malnutr-PDOC - Dietary Evaluation Malnutrition Findings (Please click <Entered> for more info): Nutritional Asmnt/Malnutrition Start: 03/05/19 10: 32 Text: Status: Complete Freq: Protocol: Document 03/05/19 10:32 [email or web address] (Rec: 03/05/19 10:40 [facility] Nutritional Asmnt/Malnutrition Patient General Information Nutritional Screening Moderate Risk Diagnosis psychosis Pertinent Medical Hx/Surgical Hx HTN Subjective Information Per EMR, PO intake 100%. Current Diet Order/ Nutrition Support CCHO Pertinent Medications colace, seroquel, senna Pertinent Labs 03/02 reviewed Nutritional Hx/Data Height 5 ft 4 in Height (Calculated Centimeters) 162.6 Current Weight (lbs) 110 lb Weight (Calculated Kilograms) 49.9 Weight (Calculated Grams) 75054.2 [place] Body Weight 120 Body Mass Index (BMI) 18.8 Weight Status Approriate GI Symptoms GI Symptoms None Last BM 03/04 Difficult in: None Skin Integrity/Comment: intact Current %PO Good (75-100%) Estimated Nutritional Goals BEE in Kcals: Using Current wt Calories/Kcals/Kg 25-30 Kcals Calculated 9643-8879 Protein: Using Current wt Protein g/k Protein Calculated 50 Fluid: ml 1250-1500ml (1ml/kcal) Nutritional Problem No current Nutrition Prob Problem N/A Malnutrition Alert Is there a minimum of two criteria No selected? Query Text:Check all the applicable criteria. A minimum of two criteria are recommended for diagnosis of either severe or non-severe malnutrition. Malnutrition Related to Morbid Obesity Malnutrition related to morbid obesity No Intervention/Recommendation Comments 1. Continue with [facility] diet as ordered. 2. Monitor PO intake, wt, labs and skin integrity 3. F/U as low risk in 7 days Expected Outcomes/Goals Expected Outcomes/Goals 1. PO intake to meet at least 75% of nutritional needs. 2. Wt stability, skin to remain intact, labs to approach WNL.
[2019-03-08] MEDS: Magnesium Hydroxide (MOM) 30 mL UDC PO SCH (21:35)
--- NOTE | 2019-03-08 23:04 | Progress Notes ---
DATE: 03/08/2019 Case was discussed with staff of the patient, reviewed records. The patient continues to be unpredictable, impulsive, needing redirection. Continues to be easily agitated, trying to hit staff at times. She is sleeping better, eating better. No side effects with the medication, no sedation, no nausea, no extrapyramidal symptoms. She tolerated the increase in Seroquel with no side effects. I will continue outpatient group therapy, milieu therapy, and adjust medications as needed. JOB# [id number]
--- NOTE | 2019-03-09 14:04 | Internal Medicine Prog Note ---
Internal Medicine Subjective - Subjective Service Date: 03/09/19 Patient is:: awake, verbal, interactive, in bed Per staff patient has:: no adverse event, no episodes of fall, poor appetite, tolerating meds Internal Medicine Objective - Results Result Diagrams: 03/02/19 18:05 03/02/19 18:05 Recent Labs: Laboratory Last Values WBC 5.0 Th/cmm (4.8-10.8) 03/02/19 18:05 RBC 4.77 Mil/cmm (3.80-5.20) 03/02/19 18:05 Hgb 12.8 gm/dL (12-16) 03/02/19 18:05 Hct 39.7 % (41.0-60) L 03/02/19 18:05 MCV 83.4 fl (81-100) 03/02/19 18:05 MCH 26.8 pg (27.0-31.0) L 03/02/19 18:05 MCHC Differential 32.2 pg (28.0-36.0) 03/02/19 18:05 RDW 13.5 % (11.5-20.0) 03/02/19 18:05 Plt Count 196 Th/cmm (150-400) 03/02/19 18:05 MPV 8.5 fl 03/02/19 18:05 Neutrophils % 57.1 % (40.0-80.0) 03/02/19 18:05 Lymphocytes % 30.2 % (20.0-50.0) 03/02/19 18:05 Monocytes % 10.6 % (2.0-10.0) H 03/02/19 18:05 Eosinophils % 1.6 % (0.0-5.0) 03/02/19 18:05 Basophils % 0.5 % (0.0-2.0) 03/02/19 18:05 Sodium 138 mEq/L (136-145) 03/02/19 18:05 Potassium 4.1 mEq/L (3.5-5.1) 03/02/19 18:05 Chloride 101 mEq/L (98-107) 03/02/19 18:05 Carbon Dioxide 28.7 mEq/L (21.0-31.0) 03/02/19 18:05 Anion Gap 12.4 (7.0-16.0) 03/02/19 18:05 BUN 18 mg/dL (7-25) 03/02/19 18:05 Creatinine 0.6 mg/dL (0.6-1.2) 03/02/19 18:05 Est GFR ( Amer) > 60.0 ml/min (>90) 03/02/19 18:05 Est GFR (Non-Af Amer) > 60.0 ml/min 03/02/19 18:05 BUN/Creatinine Ratio 30.0 03/02/19 18:05 Glucose 87 mg/dL (70-105) 03/02/19 18:05 Calcium 9.3 mg/dL (8.6-10.3) 03/02/19 18:05 Total Bilirubin 0.2 mg/dL (0.3-1.0) L 03/02/19 18:05 AST 16 U/L (13-39) 03/02/19 18:05 ALT 14 U/L (7-52) 03/02/19 18:05 Alkaline Phosphatase 52 U/L (34-104) 03/02/19 18:05 Troponin I < 0.01 ng/mL (0.01-0.05) L 03/02/19 18:05 Total Protein 7.0 gm/dL (6.0-8.3) 03/02/19 18:05 Albumin 4.0 gm/dL (3.7-5.3) 03/02/19 18:05 Globulin 3.0 gm/dL 03/02/19 18:05 Albumin/Globulin Ratio 1.3 (1.0-1.8) 03/02/19 18:05 Triglycerides 47 mg/dL (<150) 03/02/19 18:05 Cholesterol 167 mg/dL (<200) 03/02/19 18:05 LDL Cholesterol Direct 66 mg/dL (75-193) L 03/02/19 18:05 HDL Cholesterol 76 mg/dL (23-92) 03/02/19 18:05 TSH 0.22 uIU/ml (0.34-5.60) L 03/02/19 18:05 Salicylates < 25.0 mg/L (30.0-100.0) L 03/02/19 18:05 Acetaminophen < 10.0 ug/mL (10.0-30.0) L 03/02/19 18:05 Ethyl Alcohol < 10 mg/dL (0-10) 03/02/19 18:05 RPR NONREACTIVE (NONREACTIVE) 03/02/19 18:05 - Physical Exam Vitals and I&O: Vital Signs Temp 0 F 03/09/19 06:25 Pulse 65 03/08/19 08:37 Resp 18 03/09/19 07:47 BP 109/70 03/08/19 08:37 Pulse Ox 100 03/08/19 08:37 Intake & Output 03/08/19 03/09/19 03/09/19 18:59 06:59 18:59 Intake Total 1000 120 Balance 1000 120 Intake: Oral 1000 120 Other: # Voids 3 3 # Bowel Movements 1 0 Active Medications: Current Medications Acetaminophen (Tylenol) 650 mg PO Q4H PRN PRN Reason: Pain Or Fever above 101 Stop: 05/01/19 23:14 Last Admin: 03/08/19 09:18 Dose: 650 mg Bisacodyl (Dulcolax 10 Mg Supp) 10 mg RC DAILY PRN PRN Reason: Constipation Stop: 05/02/19 11:55 Docusate Sodium (Colace) 100 mg PO DAILY RANJAN Stop: 05/02/19 08:59 Last Admin: 03/09/19 09:01 Dose: Not Given Lorazepam (Ativan) 0.5 mg PO Q4H PRN; Protocol PRN Reason: Anxiety Stop: 05/01/19 21:06 Last Admin: 03/04/19 08:15 Dose: 0.5 mg Magnesium Hydroxide (Milk Of Magnesia) 30 ml PO HS RANJAN Stop: 05/02/19 20:59 Last Admin: 03/08/19 21:35 Dose: Not Given Quetiapine Fumarate (Seroquel) 25 mg PO DAILY RANJAN; Protocol Stop: 05/04/19 08:59 Last Admin: 03/09/19 09:01 Dose: Not Given Quetiapine Fumarate (Seroquel) 50 mg PO HS RANAJN; Protocol Stop: 05/02/19 20:59 Senna (Senna) 17.2 mg PO HS RANJAN Stop: 05/02/19 20:59 Last Admin: 03/08/19 21:25 Dose: Not Given Sodium Phosphate (Fleet Enema) 135 ml RC Q2D PRN PRN Reason: Constipation Stop: 05/02/19 11:55 Trazodone HCl (Desyrel) 25 mg PO HS RANJAN; Protocol Stop: 05/02/19 20:59 Last Admin: 03/08/19 21:24 Dose: 25 mg Zolpidem Tartrate (Ambien) 5 mg PO HS PRN PRN Reason: Insomnia Stop: 05/01/19 21:06 Last Admin: 03/07/19 21:21 Dose: 5 mg General: thin, appears older HEENT: NC/AT, PERRLA, EOMI, thinning hair Neck: Supple, No JVD Lungs: CTAB Cardiovascular: RRR, Normal S1, Normal S2, with murmur Abdomen: soft, thin, positive bowel sound Extremities: excoriation Neurological: no change Internal Medicine Assmt/Plan - Assessment Assessment: Anemia, low TSH level, above knee amputation, hypertension, and constipation. - Plan Plan: fall precautions continue current plan of care Nutritional Asmnt/Malnutr-PDOC - Dietary Evaluation Malnutrition Findings (Please click <Entered> for more info): Nutritional Asmnt/Malnutrition Start: 03/05/19 10: 32 Text: Status: Complete Freq: Protocol: Document 03/05/19 10:32 LCHENG (Rec: 03/05/19 10:40 [email or web address]) Nutritional Asmnt/Malnutrition Patient General Information Nutritional Screening Moderate Risk Diagnosis psychosis Pertinent Medical Hx/Surgical Hx HTN Subjective Information Per EMR, PO intake 100%. Current Diet Order/ Nutrition Support CCHO Pertinent Medications colace, seroquel, senna Pertinent Labs 03/02 reviewed Nutritional Hx/Data Height 5 ft 4 in Height (Calculated Centimeters) 162.6 Current Weight (lbs) 110 lb Weight (Calculated Kilograms) 49.9 Weight (Calculated Grams) 85856.2 [place] Body Weight 120 Body Mass Index (BMI) 18.8 Weight Status Approriate GI Symptoms GI Symptoms None Last BM 03/04 Difficult in: None Skin Integrity/Comment: intact Current %PO Good (75-100%) Estimated Nutritional Goals BEE in Kcals: Using Current wt Calories/Kcals/Kg 25-30 Kcals Calculated 3629-5974 Protein: Using Current wt Protein g/k Protein Calculated 50 Fluid: ml 1250-1500ml (1ml/kcal) Nutritional Problem No current Nutrition Prob Problem N/A Malnutrition Alert Is there a minimum of two criteria No selected? Query Text:Check all the applicable criteria. A minimum of two criteria are recommended for diagnosis of either severe or non-severe malnutrition. Malnutrition Related to Morbid Obesity Malnutrition related to morbid obesity No Intervention/Recommendation Comments 1. Continue with CCHO diet as ordered. 2. Monitor PO intake, wt, labs and skin integrity 3. F/U as low risk in 7 days Expected Outcomes/Goals Expected Outcomes/Goals 1. PO intake to meet at least 75% of nutritional needs. 2. Wt stability, skin to remain intact, labs to approach WNL.
[2019-03-09] MEDS: Magnesium Hydroxide (MOM) 30 mL UDC PO SCH (22:07)
--- NOTE | 2019-03-10 00:39 | Progress Notes ---
DATE: 03/09/2019 SUMMARY: Case was discussed with staff of the patient and reviewed records. The patient isolates herself. She continues to have poor insight. She continues to be unable to make safe plan for her self-care, easily agitated, trying to hit staff at times. No side effects to the medication, no sedation, no nausea, and no extrapyramidal symptoms. We will continue to work with the patient in group therapy, milieu therapy, and adjust the medication as needed. JOB# [id number]
[2019-03-10] MEDS: Haldol Oral Sol.(concentrate) 10 mg/5 mL Udc PO SCH ×3 (08:59→21:00)
--- NOTE | 2019-03-10 12:40 | Internal Medicine Prog Note ---
Internal Medicine Subjective - Subjective Service Date: 03/10/19 Patient is:: awake, verbal, interactive, in bed Per staff patient has:: no adverse event, no episodes of fall, poor appetite, tolerating meds Internal Medicine Objective - Results Result Diagrams: 03/02/19 18:05 03/02/19 18:05 Recent Labs: Laboratory Last Values WBC 5.0 Th/cmm (4.8-10.8) 03/02/19 18:05 RBC 4.77 Mil/cmm (3.80-5.20) 03/02/19 18:05 Hgb 12.8 gm/dL (12-16) 03/02/19 18:05 Hct 39.7 % (41.0-60) L 03/02/19 18:05 MCV 83.4 fl (81-100) 03/02/19 18:05 MCH 26.8 pg (27.0-31.0) L 03/02/19 18:05 MCHC Differential 32.2 pg (28.0-36.0) 03/02/19 18:05 RDW 13.5 % (11.5-20.0) 03/02/19 18:05 Plt Count 196 Th/cmm (150-400) 03/02/19 18:05 MPV 8.5 fl 03/02/19 18:05 Neutrophils % 57.1 % (40.0-80.0) 03/02/19 18:05 Lymphocytes % 30.2 % (20.0-50.0) 03/02/19 18:05 Monocytes % 10.6 % (2.0-10.0) H 03/02/19 18:05 Eosinophils % 1.6 % (0.0-5.0) 03/02/19 18:05 Basophils % 0.5 % (0.0-2.0) 03/02/19 18:05 Sodium 138 mEq/L (136-145) 03/02/19 18:05 Potassium 4.1 mEq/L (3.5-5.1) 03/02/19 18:05 Chloride 101 mEq/L (98-107) 03/02/19 18:05 Carbon Dioxide 28.7 mEq/L (21.0-31.0) 03/02/19 18:05 Anion Gap 12.4 (7.0-16.0) 03/02/19 18:05 BUN 18 mg/dL (7-25) 03/02/19 18:05 Creatinine 0.6 mg/dL (0.6-1.2) 03/02/19 18:05 Est GFR ( Amer) > 60.0 ml/min (>90) 03/02/19 18:05 Est GFR (Non-Af Amer) > 60.0 ml/min 03/02/19 18:05 BUN/Creatinine Ratio 30.0 03/02/19 18:05 Glucose 87 mg/dL (70-105) 03/02/19 18:05 Calcium 9.3 mg/dL (8.6-10.3) 03/02/19 18:05 Total Bilirubin 0.2 mg/dL (0.3-1.0) L 03/02/19 18:05 AST 16 U/L (13-39) 03/02/19 18:05 ALT 14 U/L (7-52) 03/02/19 18:05 Alkaline Phosphatase 52 U/L (34-104) 03/02/19 18:05 Troponin I < 0.01 ng/mL (0.01-0.05) L 03/02/19 18:05 Total Protein 7.0 gm/dL (6.0-8.3) 03/02/19 18:05 Albumin 4.0 gm/dL (3.7-5.3) 03/02/19 18:05 Globulin 3.0 gm/dL 03/02/19 18:05 Albumin/Globulin Ratio 1.3 (1.0-1.8) 03/02/19 18:05 Triglycerides 47 mg/dL (<150) 03/02/19 18:05 Cholesterol 167 mg/dL (<200) 03/02/19 18:05 LDL Cholesterol Direct 66 mg/dL (75-193) L 03/02/19 18:05 HDL Cholesterol 76 mg/dL (23-92) 03/02/19 18:05 TSH 0.22 uIU/ml (0.34-5.60) L 03/02/19 18:05 Salicylates < 25.0 mg/L (30.0-100.0) L 03/02/19 18:05 Acetaminophen < 10.0 ug/mL (10.0-30.0) L 03/02/19 18:05 Ethyl Alcohol < 10 mg/dL (0-10) 03/02/19 18:05 RPR NONREACTIVE (NONREACTIVE) 03/02/19 18:05 - Physical Exam Vitals and I&O: Vital Signs Temp 98.3 F 03/10/19 06:05 Pulse 68 03/10/19 06:05 Resp 18 03/10/19 06:05 BP 107/65 03/10/19 06:05 Pulse Ox 100 03/10/19 06:05 Intake & Output 03/09/19 03/10/19 03/10/19 18:59 06:59 18:59 Intake Total 900 120 Balance 900 120 Intake: Oral 900 120 Other: # Voids 3 2 # Bowel Movements 1 0 Stool Characteristics Hard Hard Active Medications: Current Medications Acetaminophen (Tylenol) 650 mg PO Q4H PRN PRN Reason: Pain Or Fever above 101 Stop: 05/01/19 23:14 Last Admin: 03/08/19 09:18 Dose: 650 mg Bisacodyl (Dulcolax 10 Mg Supp) 10 mg RC DAILY PRN PRN Reason: Constipation Stop: 05/02/19 11:55 Docusate Sodium (Colace) 100 mg PO DAILY RANJAN Stop: 05/02/19 08:59 Last Admin: 03/10/19 08:59 Dose: Not Given Haloperidol Lactate (Haldol Concentrate 10mg/5ml Susp) 5 mg PO TID RANJAN; Protocol Stop: 05/09/19 08:59 Last Admin: 03/10/19 08:59 Dose: Not Given Lorazepam (Ativan) 0.5 mg PO Q4H PRN; Protocol PRN Reason: Anxiety Stop: 05/01/19 21:06 Last Admin: 03/04/19 08:15 Dose: 0.5 mg Magnesium Hydroxide (Milk Of Magnesia) 30 ml PO HS RANJAN Stop: 05/02/19 20:59 Last Admin: 03/09/19 22:07 Dose: Not Given Quetiapine Fumarate (Seroquel) 25 mg PO DAILY RANJAN; Protocol Stop: 05/04/19 08:59 Last Admin: 03/10/19 08:59 Dose: Not Given Quetiapine Fumarate (Seroquel) 50 mg PO HS RANJAN; Protocol Stop: 05/02/19 20:59 Last Admin: 03/09/19 22:08 Dose: Not Given Senna (Senna) 17.2 mg PO HS RANJAN Stop: 05/02/19 20:59 Last Admin: 03/09/19 22:08 Dose: Not Given Sodium Phosphate (Fleet Enema) 135 ml RC Q2D PRN PRN Reason: Constipation Stop: 05/02/19 11:55 Trazodone HCl (Desyrel) 25 mg PO HS RANJAN; Protocol Stop: 05/02/19 20:59 Last Admin: 03/09/19 22:08 Dose: Not Given Zolpidem Tartrate (Ambien) 5 mg PO HS PRN PRN Reason: Insomnia Stop: 05/01/19 21:06 Last Admin: 03/07/19 21:21 Dose: 5 mg General: thin, appears older HEENT: NC/AT, PERRLA, EOMI, thinning hair Neck: Supple, No JVD Lungs: CTAB Cardiovascular: RRR, Normal S1, Normal S2, with murmur Abdomen: soft, thin, positive bowel sound Extremities: excoriation Neurological: no change Internal Medicine Assmt/Plan - Assessment Assessment: Anemia, low TSH level, above knee amputation, hypertension, and constipation. - Plan Plan: fall precautions continue current plan of care Nutritional Asmnt/Malnutr-PDOC - Dietary Evaluation Malnutrition Findings (Please click <Entered> for more info): Nutritional Asmnt/Malnutrition Start: 03/05/19 10: 32 Text: Status: Complete Freq: Protocol: Document 03/05/19 10:32 LCHENG (Rec: 03/05/19 10:40 [email or web address]) Nutritional Asmnt/Malnutrition Patient General Information Nutritional Screening Moderate Risk Diagnosis psychosis Pertinent Medical Hx/Surgical Hx HTN Subjective Information Per EMR, PO intake 100%. Current Diet Order/ Nutrition Support CCHO Pertinent Medications colace, seroquel, senna Pertinent Labs 03/02 reviewed Nutritional Hx/Data Height 5 ft 4 in Height (Calculated Centimeters) 162.6 Current Weight (lbs) 110 lb Weight (Calculated Kilograms) 49.9 Weight (Calculated Grams) 37652.2 [place] Body Weight 120 Body Mass Index (BMI) 18.8 Weight Status Approriate GI Symptoms GI Symptoms None Last BM 03/04 Difficult in: None Skin Integrity/Comment: intact Current %PO Good (75-100%) Estimated Nutritional Goals BEE in Kcals: Using Current wt Calories/Kcals/Kg 25-30 Kcals Calculated 3123-2959 Protein: Using Current wt Protein g/k Protein Calculated 50 Fluid: ml 1250-1500ml (1ml/kcal) Nutritional Problem No current Nutrition Prob Problem N/A Malnutrition Alert Is there a minimum of two criteria No selected? Query Text:Check all the applicable criteria. A minimum of two criteria are recommended for diagnosis of either severe or non-severe malnutrition. Malnutrition Related to Morbid Obesity Malnutrition related to morbid obesity No Intervention/Recommendation Comments 1. Continue with [facility] diet as ordered. 2. Monitor PO intake, wt, labs and skin integrity 3. F/U as low risk in 7 days Expected Outcomes/Goals Expected Outcomes/Goals 1. PO intake to meet at least 75% of nutritional needs. 2. Wt stability, skin to remain intact, labs to approach WNL.
[2019-03-10] MEDS: Magnesium Hydroxide (MOM) 30 mL UDC PO SCH (20:47)
[2019-03-11] MEDS: Haldol Oral Sol.(concentrate) 10 mg/5 mL Udc PO SCH ×3 (09:02→21:34)
--- NOTE | 2019-03-11 11:39 | Internal Medicine Prog Note ---
Internal Medicine Subjective - Subjective Service Date: 03/11/19 Patient is:: awake, verbal, interactive, in bed Per staff patient has:: no adverse event, no episodes of fall, poor appetite, tolerating meds Internal Medicine Objective - Results Result Diagrams: 03/02/19 18:05 03/02/19 18:05 Recent Labs: Laboratory Last Values WBC 5.0 Th/cmm (4.8-10.8) 03/02/19 18:05 RBC 4.77 Mil/cmm (3.80-5.20) 03/02/19 18:05 Hgb 12.8 gm/dL (12-16) 03/02/19 18:05 Hct 39.7 % (41.0-60) L 03/02/19 18:05 MCV 83.4 fl (81-100) 03/02/19 18:05 MCH 26.8 pg (27.0-31.0) L 03/02/19 18:05 MCHC Differential 32.2 pg (28.0-36.0) 03/02/19 18:05 RDW 13.5 % (11.5-20.0) 03/02/19 18:05 Plt Count 196 Th/cmm (150-400) 03/02/19 18:05 MPV 8.5 fl 03/02/19 18:05 Neutrophils % 57.1 % (40.0-80.0) 03/02/19 18:05 Lymphocytes % 30.2 % (20.0-50.0) 03/02/19 18:05 Monocytes % 10.6 % (2.0-10.0) H 03/02/19 18:05 Eosinophils % 1.6 % (0.0-5.0) 03/02/19 18:05 Basophils % 0.5 % (0.0-2.0) 03/02/19 18:05 Sodium 138 mEq/L (136-145) 03/02/19 18:05 Potassium 4.1 mEq/L (3.5-5.1) 03/02/19 18:05 Chloride 101 mEq/L (98-107) 03/02/19 18:05 Carbon Dioxide 28.7 mEq/L (21.0-31.0) 03/02/19 18:05 Anion Gap 12.4 (7.0-16.0) 03/02/19 18:05 BUN 18 mg/dL (7-25) 03/02/19 18:05 Creatinine 0.6 mg/dL (0.6-1.2) 03/02/19 18:05 Est GFR ( Amer) > 60.0 ml/min (>90) 03/02/19 18:05 Est GFR (Non-Af Amer) > 60.0 ml/min 03/02/19 18:05 BUN/Creatinine Ratio 30.0 03/02/19 18:05 Glucose 87 mg/dL (70-105) 03/02/19 18:05 Calcium 9.3 mg/dL (8.6-10.3) 03/02/19 18:05 Total Bilirubin 0.2 mg/dL (0.3-1.0) L 03/02/19 18:05 AST 16 U/L (13-39) 03/02/19 18:05 ALT 14 U/L (7-52) 03/02/19 18:05 Alkaline Phosphatase 52 U/L (34-104) 03/02/19 18:05 Troponin I < 0.01 ng/mL (0.01-0.05) L 03/02/19 18:05 Total Protein 7.0 gm/dL (6.0-8.3) 03/02/19 18:05 Albumin 4.0 gm/dL (3.7-5.3) 03/02/19 18:05 Globulin 3.0 gm/dL 03/02/19 18:05 Albumin/Globulin Ratio 1.3 (1.0-1.8) 03/02/19 18:05 Triglycerides 47 mg/dL (<150) 03/02/19 18:05 Cholesterol 167 mg/dL (<200) 03/02/19 18:05 LDL Cholesterol Direct 66 mg/dL (75-193) L 03/02/19 18:05 HDL Cholesterol 76 mg/dL (23-92) 03/02/19 18:05 TSH 0.22 uIU/ml (0.34-5.60) L 03/02/19 18:05 Salicylates < 25.0 mg/L (30.0-100.0) L 03/02/19 18:05 Acetaminophen < 10.0 ug/mL (10.0-30.0) L 03/02/19 18:05 Ethyl Alcohol < 10 mg/dL (0-10) 03/02/19 18:05 RPR NONREACTIVE (NONREACTIVE) 03/02/19 18:05 - Physical Exam Vitals and I&O: Vital Signs Temp 98.6 F 03/10/19 14:32 Pulse 99 03/10/19 14:32 Resp 20 03/11/19 08:00 BP 108/61 03/10/19 14:32 Pulse Ox 97 03/10/19 14:32 Intake & Output 03/10/19 03/11/19 03/11/19 18:59 06:59 18:59 Intake Total 120 Balance 120 Intake: Oral 120 Other: # Voids 3 # Bowel Movements 2 Stool Characteristics Hard Active Medications: Current Medications Acetaminophen (Tylenol) 650 mg PO Q4H PRN PRN Reason: Pain Or Fever above 101 Stop: 05/01/19 23:14 Last Admin: 03/08/19 09:18 Dose: 650 mg Bisacodyl (Dulcolax 10 Mg Supp) 10 mg RC DAILY PRN PRN Reason: Constipation Stop: 05/02/19 11:55 Docusate Sodium (Colace) 100 mg PO DAILY RANJAN Stop: 05/02/19 08:59 Last Admin: 03/11/19 09:02 Dose: Not Given Haloperidol Lactate (Haldol Concentrate 10mg/5ml Susp) 5 mg PO TID RANJAN; Protocol Stop: 05/09/19 08:59 Last Admin: 03/11/19 09:02 Dose: Not Given Lorazepam (Ativan) 0.5 mg PO Q4H PRN; Protocol PRN Reason: Anxiety Stop: 05/01/19 21:06 Last Admin: 03/04/19 08:15 Dose: 0.5 mg Magnesium Hydroxide (Milk Of Magnesia) 30 ml PO HS RANJAN Stop: 05/02/19 20:59 Last Admin: 03/10/19 20:47 Dose: Not Given Quetiapine Fumarate (Seroquel) 25 mg PO DAILY RANJAN; Protocol Stop: 05/04/19 08:59 Last Admin: 03/11/19 09:02 Dose: Not Given Quetiapine Fumarate (Seroquel) 50 mg PO HS RANJAN; Protocol Stop: 05/02/19 20:59 Last Admin: 03/10/19 20:47 Dose: Not Given Senna (Senna) 17.2 mg PO HS RANJAN Stop: 05/02/19 20:59 Last Admin: 03/10/19 20:47 Dose: Not Given Sodium Phosphate (Fleet Enema) 135 ml RC Q2D PRN PRN Reason: Constipation Stop: 05/02/19 11:55 Trazodone HCl (Desyrel) 25 mg PO HS RANJAN; Protocol Stop: 05/02/19 20:59 Last Admin: 03/10/19 20:47 Dose: Not Given Zolpidem Tartrate (Ambien) 5 mg PO HS PRN PRN Reason: Insomnia Stop: 05/01/19 21:06 Last Admin: 03/07/19 21:21 Dose: 5 mg General: thin, appears older HEENT: NC/AT, PERRLA, EOMI, thinning hair Neck: Supple, No JVD Lungs: CTAB Cardiovascular: RRR, Normal S1, Normal S2, with murmur Abdomen: soft, thin, positive bowel sound Extremities: excoriation Neurological: no change Internal Medicine Assmt/Plan - Assessment Assessment: Anemia, low TSH level, above knee amputation, hypertension, and constipation. - Plan Plan: fall precautions continue current plan of care Nutritional Asmnt/Malnutr-PDOC - Dietary Evaluation Malnutrition Findings (Please click <Entered> for more info): Nutritional Asmnt/Malnutrition Start: 03/05/19 10: 32 Text: Status: Complete Freq: Protocol: Document 03/05/19 10:32 LCHENG (Rec: 03/05/19 10:40 LCMILLIG [email or web address]) Nutritional Asmnt/Malnutrition Patient General Information Nutritional Screening Moderate Risk Diagnosis psychosis Pertinent Medical Hx/Surgical Hx HTN Subjective Information Per EMR, PO intake 100%. Current Diet Order/ Nutrition Support CCHO Pertinent Medications colace, seroquel, senna Pertinent Labs 03/02 reviewed Nutritional Hx/Data Height 5 ft 4 in Height (Calculated Centimeters) 162.6 Current Weight (lbs) 110 lb Weight (Calculated Kilograms) 49.9 Weight (Calculated Grams) 20842.2 [place] Body Weight 120 Body Mass Index (BMI) 18.8 Weight Status Approriate GI Symptoms GI Symptoms None Last BM 03/04 Difficult in: None Skin Integrity/Comment: intact Current %PO Good (75-100%) Estimated Nutritional Goals BEE in Kcals: Using Current wt Calories/Kcals/Kg 25-30 Kcals Calculated 7728-2258 Protein: Using Current wt Protein g/k Protein Calculated 50 Fluid: ml 1250-1500ml (1ml/kcal) Nutritional Problem No current Nutrition Prob Problem N/A Malnutrition Alert Is there a minimum of two criteria No selected? Query Text:Check all the applicable criteria. A minimum of two criteria are recommended for diagnosis of either severe or non-severe malnutrition. Malnutrition Related to Morbid Obesity Malnutrition related to morbid obesity No Intervention/Recommendation Comments 1. Continue with [facility] diet as ordered. 2. Monitor PO intake, wt, labs and skin integrity 3. F/U as low risk in 7 days Expected Outcomes/Goals Expected Outcomes/Goals 1. PO intake to meet at least 75% of nutritional needs. 2. Wt stability, skin to remain intact, labs to approach WNL.
--- NOTE | 2019-03-11 13:52 | Progress Notes ---
DATE: 03/11/2019 Case was discussed with staff of the patient, reviewed records. The patient continues to be irritable, continues to have poor insight. She is though today she was a little bit less angry. Dr. Singh increased her Haldol dose yesterday 5 mg 3 times a day with no side effects, no sedation or nausea, no extrapyramidal symptoms. She is also the Seroquel was increased to 50 mg at bedtime on 03/09/2018. She is a pleasant No side effects to the medication, no sedation or nausea, no extrapyramidal symptoms. We will continue outpatient group therapy, milieu therapy, adjust medication as needed. [facility]# [id number]
[2019-03-11] MEDS ORDERED: Haloperidol Lactate 5 mg/mL 1mL Vial IM ONE (17:07)
[2019-03-11] MEDS ORDERED: Haloperidol Lactate 5 mg/mL 1mL Vial ONE (17:11)
[2019-03-11] MEDS: Magnesium Hydroxide (MOM) 30 mL UDC PO SCH (21:34)
[2019-03-12] MEDS: Haldol Oral Sol.(concentrate) 10 mg/5 mL Udc PO SCH ×3 (09:33→20:37)
--- NOTE | 2019-03-12 13:15 | Internal Medicine Prog Note ---
Internal Medicine Subjective - Subjective Service Date: 03/12/19 Patient is:: awake, verbal, interactive, in bed Per staff patient has:: no adverse event, no episodes of fall, poor appetite, tolerating meds Internal Medicine Objective - Results Result Diagrams: 03/02/19 18:05 03/02/19 18:05 Recent Labs: Laboratory Last Values WBC 5.0 Th/cmm (4.8-10.8) 03/02/19 18:05 RBC 4.77 Mil/cmm (3.80-5.20) 03/02/19 18:05 Hgb 12.8 gm/dL (12-16) 03/02/19 18:05 Hct 39.7 % (41.0-60) L 03/02/19 18:05 MCV 83.4 fl (81-100) 03/02/19 18:05 MCH 26.8 pg (27.0-31.0) L 03/02/19 18:05 MCHC Differential 32.2 pg (28.0-36.0) 03/02/19 18:05 RDW 13.5 % (11.5-20.0) 03/02/19 18:05 Plt Count 196 Th/cmm (150-400) 03/02/19 18:05 MPV 8.5 fl 03/02/19 18:05 Neutrophils % 57.1 % (40.0-80.0) 03/02/19 18:05 Lymphocytes % 30.2 % (20.0-50.0) 03/02/19 18:05 Monocytes % 10.6 % (2.0-10.0) H 03/02/19 18:05 Eosinophils % 1.6 % (0.0-5.0) 03/02/19 18:05 Basophils % 0.5 % (0.0-2.0) 03/02/19 18:05 Sodium 138 mEq/L (136-145) 03/02/19 18:05 Potassium 4.1 mEq/L (3.5-5.1) 03/02/19 18:05 Chloride 101 mEq/L (98-107) 03/02/19 18:05 Carbon Dioxide 28.7 mEq/L (21.0-31.0) 03/02/19 18:05 Anion Gap 12.4 (7.0-16.0) 03/02/19 18:05 BUN 18 mg/dL (7-25) 03/02/19 18:05 Creatinine 0.6 mg/dL (0.6-1.2) 03/02/19 18:05 Est GFR ( Amer) > 60.0 ml/min (>90) 03/02/19 18:05 Est GFR (Non-Af Amer) > 60.0 ml/min 03/02/19 18:05 BUN/Creatinine Ratio 30.0 03/02/19 18:05 Glucose 87 mg/dL (70-105) 03/02/19 18:05 Calcium 9.3 mg/dL (8.6-10.3) 03/02/19 18:05 Total Bilirubin 0.2 mg/dL (0.3-1.0) L 03/02/19 18:05 AST 16 U/L (13-39) 03/02/19 18:05 ALT 14 U/L (7-52) 03/02/19 18:05 Alkaline Phosphatase 52 U/L (34-104) 03/02/19 18:05 Troponin I < 0.01 ng/mL (0.01-0.05) L 03/02/19 18:05 Total Protein 7.0 gm/dL (6.0-8.3) 03/02/19 18:05 Albumin 4.0 gm/dL (3.7-5.3) 03/02/19 18:05 Globulin 3.0 gm/dL 03/02/19 18:05 Albumin/Globulin Ratio 1.3 (1.0-1.8) 03/02/19 18:05 Triglycerides 47 mg/dL (<150) 03/02/19 18:05 Cholesterol 167 mg/dL (<200) 03/02/19 18:05 LDL Cholesterol Direct 66 mg/dL (75-193) L 03/02/19 18:05 HDL Cholesterol 76 mg/dL (23-92) 03/02/19 18:05 TSH 0.22 uIU/ml (0.34-5.60) L 03/02/19 18:05 Salicylates < 25.0 mg/L (30.0-100.0) L 03/02/19 18:05 Acetaminophen < 10.0 ug/mL (10.0-30.0) L 03/02/19 18:05 Ethyl Alcohol < 10 mg/dL (0-10) 03/02/19 18:05 RPR NONREACTIVE (NONREACTIVE) 03/02/19 18:05 - Physical Exam Vitals and I&O: Vital Signs Temp 98 F 03/11/19 20:00 Pulse 67 03/11/19 20:00 Resp 18 03/12/19 08:00 BP 100/67 03/11/19 20:00 Pulse Ox 96 03/11/19 20:00 Intake & Output 03/11/19 03/12/19 03/12/19 18:59 06:59 18:59 Intake Total 1350 120 Balance 1350 120 Intake: Oral 1350 120 Other: # Voids 3 3 # Bowel Movements 0 Active Medications: Current Medications Acetaminophen (Tylenol) 650 mg PO Q4H PRN PRN Reason: Pain Or Fever above 101 Stop: 05/01/19 23:14 Last Admin: 03/08/19 09:18 Dose: 650 mg Bisacodyl (Dulcolax 10 Mg Supp) 10 mg RC DAILY PRN PRN Reason: Constipation Stop: 05/02/19 11:55 Docusate Sodium (Colace) 100 mg PO DAILY RANJAN Stop: 05/02/19 08:59 Last Admin: 03/12/19 09:33 Dose: 100 mg Haloperidol Lactate (Haldol Concentrate 10mg/5ml Susp) 5 mg PO TID RANJAN; Protocol Stop: 05/09/19 08:59 Last Admin: 03/12/19 09:33 Dose: 5 mg Lorazepam (Ativan) 0.5 mg PO Q4H PRN; Protocol PRN Reason: Anxiety Stop: 05/01/19 21:06 Last Admin: 03/04/19 08:15 Dose: 0.5 mg Magnesium Hydroxide (Milk Of Magnesia) 30 ml PO HS RANJAN Stop: 05/02/19 20:59 Last Admin: 03/11/19 21:34 Dose: Not Given Quetiapine Fumarate (Seroquel) 25 mg PO DAILY RANJAN; Protocol Stop: 05/04/19 08:59 Last Admin: 03/12/19 09:33 Dose: 25 mg Quetiapine Fumarate (Seroquel) 50 mg PO HS RANJAN; Protocol Stop: 05/02/19 20:59 Last Admin: 03/11/19 21:35 Dose: 50 mg Senna (Senna) 17.2 mg PO HS RANJAN Stop: 05/02/19 20:59 Last Admin: 03/11/19 21:35 Dose: 17.2 mg Sodium Phosphate (Fleet Enema) 135 ml RC Q2D PRN PRN Reason: Constipation Stop: 05/02/19 11:55 Trazodone HCl (Desyrel) 25 mg PO HS RANJAN; Protocol Stop: 05/02/19 20:59 Last Admin: 03/11/19 21:35 Dose: 25 mg Zolpidem Tartrate (Ambien) 5 mg PO HS PRN PRN Reason: Insomnia Stop: 05/01/19 21:06 Last Admin: 03/11/19 21:36 Dose: 5 mg General: thin, appears older HEENT: NC/AT, PERRLA, EOMI, thinning hair Neck: Supple, No JVD Lungs: CTAB Cardiovascular: RRR, Normal S1, Normal S2, with murmur Abdomen: soft, thin, positive bowel sound Extremities: excoriation Neurological: no change Internal Medicine Assmt/Plan - Assessment Assessment: Anemia, low TSH level, above knee amputation, hypertension, and constipation. - Plan Plan: fall precautions continue current plan of care Nutritional Asmnt/Malnutr-PDOC - Dietary Evaluation Malnutrition Findings (Please click <Entered> for more info): Nutritional Asmnt/Malnutrition Start: 03/05/19 10: 32 Text: Status: Complete Freq: Protocol: Document 03/05/19 10:32 LCHENG (Rec: 03/05/19 10:40 [email or web address]) Nutritional Asmnt/Malnutrition Patient General Information Nutritional Screening Moderate Risk Diagnosis psychosis Pertinent Medical Hx/Surgical Hx HTN Subjective Information Per EMR, PO intake 100%. Current Diet Order/ Nutrition Support CCHO Pertinent Medications colace, seroquel, senna Pertinent Labs 03/02 reviewed Nutritional Hx/Data Height 5 ft 4 in Height (Calculated Centimeters) 162.6 Current Weight (lbs) 110 lb Weight (Calculated Kilograms) 49.9 Weight (Calculated Grams) 73871.2 [place] Body Weight 120 Body Mass Index (BMI) 18.8 Weight Status Approriate GI Symptoms GI Symptoms None Last BM 03/04 Difficult in: None Skin Integrity/Comment: intact Current %PO Good (75-100%) Estimated Nutritional Goals BEE in Kcals: Using Current wt Calories/Kcals/Kg 25-30 Kcals Calculated 0067-1262 Protein: Using Current wt Protein g/k Protein Calculated 50 Fluid: ml 1250-1500ml (1ml/kcal) Nutritional Problem No current Nutrition Prob Problem N/A Malnutrition Alert Is there a minimum of two criteria No selected? Query Text:Check all the applicable criteria. A minimum of two criteria are recommended for diagnosis of either severe or non-severe malnutrition. Malnutrition Related to Morbid Obesity Malnutrition related to morbid obesity No Intervention/Recommendation Comments 1. Continue with [facility] diet as ordered. 2. Monitor PO intake, wt, labs and skin integrity 3. F/U as low risk in 7 days Expected Outcomes/Goals Expected Outcomes/Goals 1. PO intake to meet at least 75% of nutritional needs. 2. Wt stability, skin to remain intact, labs to approach WNL.
[2019-03-12] MEDS: Magnesium Hydroxide (MOM) 30 mL UDC PO SCH (20:37)
--- NOTE | 2019-03-13 02:28 | Progress Notes ---
DATE: 03/12/2019 Case was discussed with staff of the patient, reviewed records. The patient continues to be irritable, continues to be aggressive, continues to have poor insight and a bad mood. Sleeping better, eating better. Dr. Singh increased her Seroquel dose with no side effects, no sedation, no nausea, no extrapyramidal symptoms. Also, working on placement for this patient. We will continue outpatient group therapy, milieu therapy, adjust medications as needed. JOB# [id number]
[2019-03-13] MEDS: Haldol Oral Sol.(concentrate) 10 mg/5 mL Udc PO SCH ×3 (08:41→21:11)
--- NOTE | 2019-03-13 09:51 | Progress Notes ---
DATE: 03/10/2019 DATE: 03/10/2019. SUBJECTIVE: Chart reviewed and the patient interviewed. Also discussed the patient's condition with the staff and reviewed records and labs. The patient is still laughing to herself and she still seems to be preoccupied. The patient also is demanding and she is still argumentative and cursing the staff and easily agitated. The patient also is refusing medications and she is still easily agitated. Otherwise, the patient is having severe mood swings and still can be dangerous to others and needs close observation. ASSESSMENT: This patient is still aggressive and agitated and needs close monitoring. TREATMENT PLAN: Continue to monitor her behavior and her condition closely. Also, continue adjusting psychotropic medications and work on behavioral modifications. [facility]# [id number]
--- NOTE | 2019-03-13 13:23 | Internal Medicine Prog Note ---
Internal Medicine Subjective - Subjective Service Date: 03/13/19 Patient is:: awake, verbal, interactive, in bed Per staff patient has:: no adverse event, no episodes of fall, poor appetite, tolerating meds Internal Medicine Objective - Results Result Diagrams: 03/02/19 18:05 03/02/19 18:05 Recent Labs: Laboratory Last Values WBC 5.0 Th/cmm (4.8-10.8) 03/02/19 18:05 RBC 4.77 Mil/cmm (3.80-5.20) 03/02/19 18:05 Hgb 12.8 gm/dL (12-16) 03/02/19 18:05 Hct 39.7 % (41.0-60) L 03/02/19 18:05 MCV 83.4 fl (81-100) 03/02/19 18:05 MCH 26.8 pg (27.0-31.0) L 03/02/19 18:05 MCHC Differential 32.2 pg (28.0-36.0) 03/02/19 18:05 RDW 13.5 % (11.5-20.0) 03/02/19 18:05 Plt Count 196 Th/cmm (150-400) 03/02/19 18:05 MPV 8.5 fl 03/02/19 18:05 Neutrophils % 57.1 % (40.0-80.0) 03/02/19 18:05 Lymphocytes % 30.2 % (20.0-50.0) 03/02/19 18:05 Monocytes % 10.6 % (2.0-10.0) H 03/02/19 18:05 Eosinophils % 1.6 % (0.0-5.0) 03/02/19 18:05 Basophils % 0.5 % (0.0-2.0) 03/02/19 18:05 Sodium 138 mEq/L (136-145) 03/02/19 18:05 Potassium 4.1 mEq/L (3.5-5.1) 03/02/19 18:05 Chloride 101 mEq/L (98-107) 03/02/19 18:05 Carbon Dioxide 28.7 mEq/L (21.0-31.0) 03/02/19 18:05 Anion Gap 12.4 (7.0-16.0) 03/02/19 18:05 BUN 18 mg/dL (7-25) 03/02/19 18:05 Creatinine 0.6 mg/dL (0.6-1.2) 03/02/19 18:05 Est GFR ( Amer) > 60.0 ml/min (>90) 03/02/19 18:05 Est GFR (Non-Af Amer) > 60.0 ml/min 03/02/19 18:05 BUN/Creatinine Ratio 30.0 03/02/19 18:05 Glucose 87 mg/dL (70-105) 03/02/19 18:05 Calcium 9.3 mg/dL (8.6-10.3) 03/02/19 18:05 Total Bilirubin 0.2 mg/dL (0.3-1.0) L 03/02/19 18:05 AST 16 U/L (13-39) 03/02/19 18:05 ALT 14 U/L (7-52) 03/02/19 18:05 Alkaline Phosphatase 52 U/L (34-104) 03/02/19 18:05 Troponin I < 0.01 ng/mL (0.01-0.05) L 03/02/19 18:05 Total Protein 7.0 gm/dL (6.0-8.3) 03/02/19 18:05 Albumin 4.0 gm/dL (3.7-5.3) 03/02/19 18:05 Globulin 3.0 gm/dL 03/02/19 18:05 Albumin/Globulin Ratio 1.3 (1.0-1.8) 03/02/19 18:05 Triglycerides 47 mg/dL (<150) 03/02/19 18:05 Cholesterol 167 mg/dL (<200) 03/02/19 18:05 LDL Cholesterol Direct 66 mg/dL (75-193) L 03/02/19 18:05 HDL Cholesterol 76 mg/dL (23-92) 03/02/19 18:05 TSH 0.22 uIU/ml (0.34-5.60) L 03/02/19 18:05 Salicylates < 25.0 mg/L (30.0-100.0) L 03/02/19 18:05 Acetaminophen < 10.0 ug/mL (10.0-30.0) L 03/02/19 18:05 Ethyl Alcohol < 10 mg/dL (0-10) 03/02/19 18:05 RPR NONREACTIVE (NONREACTIVE) 03/02/19 18:05 - Physical Exam Vitals and I&O: Vital Signs Temp 97 F 03/13/19 06:05 Pulse 67 03/13/19 06:05 Resp 18 03/13/19 06:05 BP 96/60 03/13/19 06:05 Pulse Ox 96 03/13/19 06:05 Intake & Output 03/12/19 03/13/19 03/13/19 18:59 06:59 18:59 Intake Total 1400 240 Balance 1400 240 Intake: Oral 1400 240 Other: # Voids 3 # Bowel Movements 0 0 Active Medications: Current Medications Acetaminophen (Tylenol) 650 mg PO Q4H PRN PRN Reason: Pain Or Fever above 101 Stop: 05/01/19 23:14 Last Admin: 03/08/19 09:18 Dose: 650 mg Bisacodyl (Dulcolax 10 Mg Supp) 10 mg RC DAILY PRN PRN Reason: Constipation Stop: 05/02/19 11:55 Docusate Sodium (Colace) 100 mg PO DAILY RANJAN Stop: 05/02/19 08:59 Last Admin: 03/13/19 08:41 Dose: Not Given Haloperidol Lactate (Haldol Concentrate 10mg/5ml Susp) 5 mg PO TID RANJAN; Protocol Stop: 05/09/19 08:59 Last Admin: 03/13/19 08:41 Dose: Not Given Lorazepam (Ativan) 0.5 mg PO Q4H PRN; Protocol PRN Reason: Anxiety Stop: 05/01/19 21:06 Last Admin: 03/04/19 08:15 Dose: 0.5 mg Magnesium Hydroxide (Milk Of Magnesia) 30 ml PO HS RANJAN Stop: 05/02/19 20:59 Last Admin: 03/12/19 20:37 Dose: Not Given Quetiapine Fumarate (Seroquel) 25 mg PO DAILY RANJAN; Protocol Stop: 05/04/19 08:59 Last Admin: 03/13/19 08:41 Dose: Not Given Quetiapine Fumarate (Seroquel) 50 mg PO HS RANJAN; Protocol Stop: 05/02/19 20:59 Last Admin: 03/12/19 20:37 Dose: Not Given Senna (Senna) 17.2 mg PO HS RANJAN Stop: 05/02/19 20:59 Last Admin: 03/12/19 20:36 Dose: Not Given Sodium Phosphate (Fleet Enema) 135 ml RC Q2D PRN PRN Reason: Constipation Stop: 05/02/19 11:55 Trazodone HCl (Desyrel) 25 mg PO HS RANJAN; Protocol Stop: 05/02/19 20:59 Last Admin: 03/12/19 20:36 Dose: Not Given Zolpidem Tartrate (Ambien) 5 mg PO HS PRN PRN Reason: Insomnia Stop: 05/01/19 21:06 Last Admin: 03/11/19 21:36 Dose: 5 mg General: thin, appears older HEENT: NC/AT, PERRLA, EOMI, thinning hair Neck: Supple, No JVD Lungs: CTAB Cardiovascular: RRR, Normal S1, Normal S2, with murmur Abdomen: soft, thin, positive bowel sound Extremities: excoriation Neurological: no change Internal Medicine Assmt/Plan - Assessment Assessment: Anemia, low TSH level, above knee amputation, hypertension, and constipation. - Plan Plan: fall precautions continue current plan of care Nutritional Asmnt/Malnutr-PDOC - Dietary Evaluation Malnutrition Findings (Please click <Entered> for more info): Nutritional Asmnt/Malnutrition Start: 03/05/19 10: 32 Text: Status: Complete Freq: Protocol: Document 03/05/19 10:32 LCHENG (Rec: 03/05/19 10:40 [email or web address]) Nutritional Asmnt/Malnutrition Patient General Information Nutritional Screening Moderate Risk Diagnosis psychosis Pertinent Medical Hx/Surgical Hx HTN Subjective Information Per EMR, PO intake 100%. Current Diet Order/ Nutrition Support CCHO Pertinent Medications colace, seroquel, senna Pertinent Labs 03/02 reviewed Nutritional Hx/Data Height 5 ft 4 in Height (Calculated Centimeters) 162.6 Current Weight (lbs) 110 lb Weight (Calculated Kilograms) 49.9 Weight (Calculated Grams) 50021.2 [place] Body Weight 120 Body Mass Index (BMI) 18.8 Weight Status Approriate GI Symptoms GI Symptoms None Last BM 03/04 Difficult in: None Skin Integrity/Comment: intact Current %PO Good (75-100%) Estimated Nutritional Goals BEE in Kcals: Using Current wt Calories/Kcals/Kg 25-30 Kcals Calculated 6861-4127 Protein: Using Current wt Protein g/k Protein Calculated 50 Fluid: ml 1250-1500ml (1ml/kcal) Nutritional Problem No current Nutrition Prob Problem N/A Malnutrition Alert Is there a minimum of two criteria No selected? Query Text:Check all the applicable criteria. A minimum of two criteria are recommended for diagnosis of either severe or non-severe malnutrition. Malnutrition Related to Morbid Obesity Malnutrition related to morbid obesity No Intervention/Recommendation Comments 1. Continue with [facility] diet as ordered. 2. Monitor PO intake, wt, labs and skin integrity 3. F/U as low risk in 7 days Expected Outcomes/Goals Expected Outcomes/Goals 1. PO intake to meet at least 75% of nutritional needs. 2. Wt stability, skin to remain intact, labs to approach WNL.
--- NOTE | 2019-03-13 18:46 | Progress Notes ---
DATE: 03/13/2019 SUBJECTIVE: The patient coming in from [facility], transferred to [facility] with increased agitation, aggressive behaviors showing more aggressive behavior toward the staff, trying to hit the staff. Poor compliance, refusing care. Staff noting that she is pretty aggressive also refusing medications, requiring a lot of prompting and redirection. Dr. Jacobson noting the patient remains irritable, aggressive, recent dose of increase of Seroquel. ASSESSMENT: The patient symptomatic, still aggressive, agitated, unruly, lashing out at staff, continue to monitor. Consider dose titration of medications. JOB# [id number]
[2019-03-13] MEDS: Magnesium Hydroxide (MOM) 30 mL UDC PO SCH (21:11)
[2019-03-14] MEDS: Haldol Oral Sol.(concentrate) 10 mg/5 mL Udc PO SCH ×3 (09:26→20:46)
--- NOTE | 2019-03-14 15:44 | Internal Medicine Prog Note ---
Internal Medicine Subjective - Subjective Service Date: 03/14/19 Patient is:: awake, verbal, interactive, in bed Per staff patient has:: no adverse event, no episodes of fall, poor appetite, tolerating meds Internal Medicine Objective - Results Result Diagrams: 03/02/19 18:05 03/02/19 18:05 Recent Labs: Laboratory Last Values WBC 5.0 Th/cmm (4.8-10.8) 03/02/19 18:05 RBC 4.77 Mil/cmm (3.80-5.20) 03/02/19 18:05 Hgb 12.8 gm/dL (12-16) 03/02/19 18:05 Hct 39.7 % (41.0-60) L 03/02/19 18:05 MCV 83.4 fl (81-100) 03/02/19 18:05 MCH 26.8 pg (27.0-31.0) L 03/02/19 18:05 MCHC Differential 32.2 pg (28.0-36.0) 03/02/19 18:05 RDW 13.5 % (11.5-20.0) 03/02/19 18:05 Plt Count 196 Th/cmm (150-400) 03/02/19 18:05 MPV 8.5 fl 03/02/19 18:05 Neutrophils % 57.1 % (40.0-80.0) 03/02/19 18:05 Lymphocytes % 30.2 % (20.0-50.0) 03/02/19 18:05 Monocytes % 10.6 % (2.0-10.0) H 03/02/19 18:05 Eosinophils % 1.6 % (0.0-5.0) 03/02/19 18:05 Basophils % 0.5 % (0.0-2.0) 03/02/19 18:05 Sodium 138 mEq/L (136-145) 03/02/19 18:05 Potassium 4.1 mEq/L (3.5-5.1) 03/02/19 18:05 Chloride 101 mEq/L (98-107) 03/02/19 18:05 Carbon Dioxide 28.7 mEq/L (21.0-31.0) 03/02/19 18:05 Anion Gap 12.4 (7.0-16.0) 03/02/19 18:05 BUN 18 mg/dL (7-25) 03/02/19 18:05 Creatinine 0.6 mg/dL (0.6-1.2) 03/02/19 18:05 Est GFR ( Amer) > 60.0 ml/min (>90) 03/02/19 18:05 Est GFR (Non-Af Amer) > 60.0 ml/min 03/02/19 18:05 BUN/Creatinine Ratio 30.0 03/02/19 18:05 Glucose 87 mg/dL (70-105) 03/02/19 18:05 Calcium 9.3 mg/dL (8.6-10.3) 03/02/19 18:05 Total Bilirubin 0.2 mg/dL (0.3-1.0) L 03/02/19 18:05 AST 16 U/L (13-39) 03/02/19 18:05 ALT 14 U/L (7-52) 03/02/19 18:05 Alkaline Phosphatase 52 U/L (34-104) 03/02/19 18:05 Troponin I < 0.01 ng/mL (0.01-0.05) L 03/02/19 18:05 Total Protein 7.0 gm/dL (6.0-8.3) 03/02/19 18:05 Albumin 4.0 gm/dL (3.7-5.3) 03/02/19 18:05 Globulin 3.0 gm/dL 03/02/19 18:05 Albumin/Globulin Ratio 1.3 (1.0-1.8) 03/02/19 18:05 Triglycerides 47 mg/dL (<150) 03/02/19 18:05 Cholesterol 167 mg/dL (<200) 03/02/19 18:05 LDL Cholesterol Direct 66 mg/dL (75-193) L 03/02/19 18:05 HDL Cholesterol 76 mg/dL (23-92) 03/02/19 18:05 TSH 0.22 uIU/ml (0.34-5.60) L 03/02/19 18:05 Salicylates < 25.0 mg/L (30.0-100.0) L 03/02/19 18:05 Acetaminophen < 10.0 ug/mL (10.0-30.0) L 03/02/19 18:05 Ethyl Alcohol < 10 mg/dL (0-10) 03/02/19 18:05 RPR NONREACTIVE (NONREACTIVE) 03/02/19 18:05 - Physical Exam Vitals and I&O: Vital Signs Temp 98.7 F 03/14/19 14:00 Pulse 74 03/14/19 14:00 Resp 20 03/14/19 14:00 BP 91/58 03/14/19 14:00 Pulse Ox 99 03/14/19 14:00 Intake & Output 03/13/19 03/14/19 03/14/19 18:59 06:59 18:59 Intake Total 1400 240 Balance 1400 240 Intake: Oral 1400 240 Other: # Voids 4 2 # Bowel Movements 0 0 Active Medications: Current Medications Acetaminophen (Tylenol) 650 mg PO Q4H PRN PRN Reason: Pain Or Fever above 101 Stop: 05/01/19 23:14 Last Admin: 03/08/19 09:18 Dose: 650 mg Bisacodyl (Dulcolax 10 Mg Supp) 10 mg RC DAILY PRN PRN Reason: Constipation Stop: 05/02/19 11:55 Docusate Sodium (Colace) 100 mg PO DAILY RANJAN Stop: 05/02/19 08:59 Last Admin: 03/14/19 09:26 Dose: 100 mg Haloperidol Lactate (Haldol Concentrate 10mg/5ml Susp) 5 mg PO TID RANJAN; Protocol Stop: 05/09/19 08:59 Last Admin: 03/14/19 13:45 Dose: Not Given Lorazepam (Ativan) 0.5 mg PO Q4H PRN; Protocol PRN Reason: Anxiety Stop: 05/01/19 21:06 Last Admin: 03/04/19 08:15 Dose: 0.5 mg Magnesium Hydroxide (Milk Of Magnesia) 30 ml PO HS RANJAN Stop: 05/02/19 20:59 Last Admin: 03/13/19 21:11 Dose: 30 ml Quetiapine Fumarate (Seroquel) 25 mg PO DAILY RANJAN; Protocol Stop: 05/04/19 08:59 Last Admin: 03/14/19 09:26 Dose: 25 mg Quetiapine Fumarate (Seroquel) 50 mg PO HS RANJAN; Protocol Stop: 05/02/19 20:59 Last Admin: 03/13/19 21:12 Dose: 50 mg Senna (Senna) 17.2 mg PO HS RANJAN Stop: 05/02/19 20:59 Last Admin: 03/13/19 21:12 Dose: 17.2 mg Sodium Phosphate (Fleet Enema) 135 ml RC Q2D PRN PRN Reason: Constipation Stop: 05/02/19 11:55 Trazodone HCl (Desyrel) 25 mg PO HS RANJAN; Protocol Stop: 05/02/19 20:59 Last Admin: 03/13/19 21:11 Dose: 25 mg Zolpidem Tartrate (Ambien) 5 mg PO HS PRN PRN Reason: Insomnia Stop: 05/01/19 21:06 Last Admin: 03/11/19 21:36 Dose: 5 mg General: thin, appears older HEENT: NC/AT, PERRLA, EOMI, thinning hair Neck: Supple, No JVD Lungs: CTAB Cardiovascular: RRR, Normal S1, Normal S2, with murmur Abdomen: soft, thin, positive bowel sound Extremities: excoriation Neurological: no change Internal Medicine Assmt/Plan - Assessment Assessment: Anemia, low TSH level, above knee amputation, hypertension, and constipation. - Plan Plan: fall precautions continue current plan of care Nutritional Asmnt/Malnutr-PDOC - Dietary Evaluation Malnutrition Findings (Please click <Entered> for more info): Nutritional Asmnt/Malnutrition Start: 03/05/19 10: 32 Text: Status: Complete Freq: Protocol: Document 03/05/19 10:32 LCHENG (Rec: 03/05/19 10:40 [email or web address] [email or web address]) Nutritional Asmnt/Malnutrition Patient General Information Nutritional Screening Moderate Risk Diagnosis psychosis Pertinent Medical Hx/Surgical Hx HTN Subjective Information Per EMR, PO intake 100%. Current Diet Order/ Nutrition Support CCHO Pertinent Medications colace, seroquel, senna Pertinent Labs 03/02 reviewed Nutritional Hx/Data Height 5 ft 4 in Height (Calculated Centimeters) 162.6 Current Weight (lbs) 110 lb Weight (Calculated Kilograms) 49.9 Weight (Calculated Grams) 09057.2 [place] Body Weight 120 Body Mass Index (BMI) 18.8 Weight Status Approriate GI Symptoms GI Symptoms None Last BM 03/04 Difficult in: None Skin Integrity/Comment: intact Current %PO Good (75-100%) Estimated Nutritional Goals BEE in Kcals: Using Current wt Calories/Kcals/Kg 25-30 Kcals Calculated 8193-3524 Protein: Using Current wt Protein g/k Protein Calculated 50 Fluid: ml 1250-1500ml (1ml/kcal) Nutritional Problem No current Nutrition Prob Problem N/A Malnutrition Alert Is there a minimum of two criteria No selected? Query Text:Check all the applicable criteria. A minimum of two criteria are recommended for diagnosis of either severe or non-severe malnutrition. Malnutrition Related to Morbid Obesity Malnutrition related to morbid obesity No Intervention/Recommendation Comments 1. Continue with [facility] diet as ordered. 2. Monitor PO intake, wt, labs and skin integrity 3. F/U as low risk in 7 days Expected Outcomes/Goals Expected Outcomes/Goals 1. PO intake to meet at least 75% of nutritional needs. 2. Wt stability, skin to remain intact, labs to approach WNL.
--- NOTE | 2019-03-14 20:23 | Progress Notes ---
DATE: 03/14/2019 SUBJECTIVE: The patient coming in from [facility], transferred due to increased agitation, aggressive behaviors, unruly behaviors. Staff noting she remains very angry, irritable, argumentative with other peers, refusing some medications. On [id number], the patient irritable on exam, tells me to go away, does not want to talk to me, preoccupied, agitated at times. ASSESSMENT: The patient remains confused, unruly, not taking medications, telling staff "get out." We will need to monitor on an inpatient basis given her ongoing behaviors, medication refusals, agitation and irritability. JOB# [id number]
[2019-03-14] MEDS: Magnesium Hydroxide (MOM) 30 mL UDC PO SCH (20:47)
[2019-03-15] MEDS: Haldol Oral Sol.(concentrate) 10 mg/5 mL Udc PO SCH ×3 (08:44→21:05)
--- NOTE | 2019-03-15 12:19 | Internal Medicine Prog Note ---
Internal Medicine Subjective - Subjective Patient seen and examined:: with staff, chart reviewed Patient is:: awake, verbal, interactive, in bed Per staff patient has:: no adverse event, no episodes of fall, poor appetite, tolerating meds Internal Medicine Objective - Results Result Diagrams: 03/02/19 18:05 03/02/19 18:05 Recent Labs: Laboratory Last Values WBC 5.0 Th/cmm (4.8-10.8) 03/02/19 18:05 RBC 4.77 Mil/cmm (3.80-5.20) 03/02/19 18:05 Hgb 12.8 gm/dL (12-16) 03/02/19 18:05 Hct 39.7 % (41.0-60) L 03/02/19 18:05 MCV 83.4 fl (81-100) 03/02/19 18:05 MCH 26.8 pg (27.0-31.0) L 03/02/19 18:05 MCHC Differential 32.2 pg (28.0-36.0) 03/02/19 18:05 RDW 13.5 % (11.5-20.0) 03/02/19 18:05 Plt Count 196 Th/cmm (150-400) 03/02/19 18:05 MPV 8.5 fl 03/02/19 18:05 Neutrophils % 57.1 % (40.0-80.0) 03/02/19 18:05 Lymphocytes % 30.2 % (20.0-50.0) 03/02/19 18:05 Monocytes % 10.6 % (2.0-10.0) H 03/02/19 18:05 Eosinophils % 1.6 % (0.0-5.0) 03/02/19 18:05 Basophils % 0.5 % (0.0-2.0) 03/02/19 18:05 Sodium 138 mEq/L (136-145) 03/02/19 18:05 Potassium 4.1 mEq/L (3.5-5.1) 03/02/19 18:05 Chloride 101 mEq/L (98-107) 03/02/19 18:05 Carbon Dioxide 28.7 mEq/L (21.0-31.0) 03/02/19 18:05 Anion Gap 12.4 (7.0-16.0) 03/02/19 18:05 BUN 18 mg/dL (7-25) 03/02/19 18:05 Creatinine 0.6 mg/dL (0.6-1.2) 03/02/19 18:05 Est GFR ( Amer) > 60.0 ml/min (>90) 03/02/19 18:05 Est GFR (Non-Af Amer) > 60.0 ml/min 03/02/19 18:05 BUN/Creatinine Ratio 30.0 03/02/19 18:05 Glucose 87 mg/dL (70-105) 03/02/19 18:05 Calcium 9.3 mg/dL (8.6-10.3) 03/02/19 18:05 Total Bilirubin 0.2 mg/dL (0.3-1.0) L 03/02/19 18:05 AST 16 U/L (13-39) 03/02/19 18:05 ALT 14 U/L (7-52) 03/02/19 18:05 Alkaline Phosphatase 52 U/L (34-104) 03/02/19 18:05 Troponin I < 0.01 ng/mL (0.01-0.05) L 03/02/19 18:05 Total Protein 7.0 gm/dL (6.0-8.3) 03/02/19 18:05 Albumin 4.0 gm/dL (3.7-5.3) 03/02/19 18:05 Globulin 3.0 gm/dL 03/02/19 18:05 Albumin/Globulin Ratio 1.3 (1.0-1.8) 03/02/19 18:05 Triglycerides 47 mg/dL (<150) 03/02/19 18:05 Cholesterol 167 mg/dL (<200) 03/02/19 18:05 LDL Cholesterol Direct 66 mg/dL (75-193) L 03/02/19 18:05 HDL Cholesterol 76 mg/dL (23-92) 03/02/19 18:05 TSH 0.22 uIU/ml (0.34-5.60) L 03/02/19 18:05 Salicylates < 25.0 mg/L (30.0-100.0) L 03/02/19 18:05 Acetaminophen < 10.0 ug/mL (10.0-30.0) L 03/02/19 18:05 Ethyl Alcohol < 10 mg/dL (0-10) 03/02/19 18:05 RPR NONREACTIVE (NONREACTIVE) 03/02/19 18:05 - Physical Exam Vitals and I&O: Vital Signs Temp 97 F 03/15/19 05:30 Pulse 68 03/15/19 05:30 Resp 19 03/15/19 05:30 BP 108/70 03/15/19 05:30 Pulse Ox 97 03/15/19 05:30 Intake & Output 03/14/19 03/15/19 03/15/19 18:59 06:59 18:59 Intake Total 1200 240 Output Total 1 Balance 1200 239 Intake: Oral 1080 240 Other 120 Output: Urine/Stool Mix 1 Other: # Voids 3 1 # Bowel Movements 1 Active Medications: Current Medications Acetaminophen (Tylenol) 650 mg PO Q4H PRN PRN Reason: Pain Or Fever above 101 Stop: 05/01/19 23:14 Last Admin: 03/08/19 09:18 Dose: 650 mg Bisacodyl (Dulcolax 10 Mg Supp) 10 mg RC DAILY PRN PRN Reason: Constipation Stop: 05/02/19 11:55 Docusate Sodium (Colace) 100 mg PO DAILY RANJAN Stop: 05/02/19 08:59 Last Admin: 03/15/19 08:45 Dose: 100 mg Haloperidol Lactate (Haldol Concentrate 10mg/5ml Susp) 5 mg PO TID RANJAN; Protocol Stop: 05/09/19 08:59 Last Admin: 03/15/19 08:44 Dose: 5 mg Lorazepam (Ativan) 0.5 mg PO Q4H PRN; Protocol PRN Reason: Anxiety Stop: 05/01/19 21:06 Last Admin: 03/04/19 08:15 Dose: 0.5 mg Magnesium Hydroxide (Milk Of Magnesia) 30 ml PO HS RANJAN Stop: 05/02/19 20:59 Last Admin: 03/14/19 20:47 Dose: 30 ml Quetiapine Fumarate (Seroquel) 25 mg PO DAILY RANJAN; Protocol Stop: 05/04/19 08:59 Last Admin: 03/15/19 08:45 Dose: 25 mg Quetiapine Fumarate (Seroquel) 50 mg PO HS RANJAN; Protocol Stop: 05/02/19 20:59 Last Admin: 03/14/19 20:47 Dose: 50 mg Senna (Senna) 17.2 mg PO HS RANJAN Stop: 05/02/19 20:59 Last Admin: 03/14/19 20:48 Dose: 17.2 mg Sodium Phosphate (Fleet Enema) 135 ml RC Q2D PRN PRN Reason: Constipation Stop: 05/02/19 11:55 Trazodone HCl (Desyrel) 25 mg PO HS RANJAN; Protocol Stop: 05/02/19 20:59 Last Admin: 03/14/19 20:47 Dose: 25 mg Zolpidem Tartrate (Ambien) 5 mg PO HS PRN PRN Reason: Insomnia Stop: 05/01/19 21:06 Last Admin: 03/11/19 21:36 Dose: 5 mg General: thin, appears older HEENT: NC/AT, PERRLA, EOMI, thinning hair Neck: Supple, No JVD Lungs: CTAB Cardiovascular: RRR, Normal S1, Normal S2, with murmur Abdomen: soft, thin, positive bowel sound Extremities: excoriation Neurological: no change Internal Medicine Assmt/Plan - Assessment Assessment: ASSESSMENT AND PLAN: Anemia, low TSH level, above knee amputation, hypertension, and constipation. - Plan Plan: PLAN: fall precaution Continue the patient on laxative. We will monitor the patient blood pressure closely and we will place patient on proper precaution. We will put the patient on non-steroidal anti-inflammatories. We will continue to monitor the patient closely. Nutritional Asmnt/Malnutr-PDOC - Dietary Evaluation Malnutrition Findings (Please click <Entered> for more info): Nutritional Asmnt/Malnutrition Start: 03/05/19 10: 32 Text: Status: Complete Freq: Protocol: Document 03/05/19 10:32 LCHENG (Rec: 03/05/19 10:40 LCHENG [email or web address]) Nutritional Asmnt/Malnutrition Patient General Information Nutritional Screening Moderate Risk Diagnosis psychosis Pertinent Medical Hx/Surgical Hx HTN Subjective Information Per EMR, PO intake 100%. Current Diet Order/ Nutrition Support CCHO Pertinent Medications colace, seroquel, senna Pertinent Labs 03/02 reviewed Nutritional Hx/Data Height 1.63 m Height (Calculated Centimeters) 162.6 Current Weight (lbs) 49.895 kg Weight (Calculated Kilograms) 49.9 Weight (Calculated Grams) 20207.2 [place] Body Weight 120 Body Mass Index (BMI) 18.8 Weight Status Approriate GI Symptoms GI Symptoms None Last BM 03/04 Difficult in: None Skin Integrity/Comment: intact Current %PO Good (75-100%) Estimated Nutritional Goals BEE in Kcals: Using Current wt Calories/Kcals/Kg 25-30 Kcals Calculated 0055-6820 Protein: Using Current wt Protein g/k Protein Calculated 50 Fluid: ml 1250-1500ml (1ml/kcal) Nutritional Problem No current Nutrition Prob Problem N/A Malnutrition Alert Is there a minimum of two criteria No selected? Query Text:Check all the applicable criteria. A minimum of two criteria are recommended for diagnosis of either severe or non-severe malnutrition. Malnutrition Related to Morbid Obesity Malnutrition related to morbid obesity No Intervention/Recommendation Comments 1. Continue with [facility] diet as ordered. 2. Monitor PO intake, wt, labs and skin integrity 3. F/U as low risk in 7 days Expected Outcomes/Goals Expected Outcomes/Goals 1. PO intake to meet at least 75% of nutritional needs. 2. Wt stability, skin to remain intact, labs to approach WNL.
[2019-03-15] MEDS: Magnesium Hydroxide (MOM) 30 mL UDC PO SCH (20:38)
--- NOTE | 2019-03-15 23:21 | Progress Notes ---
DATE: 03/15/2019 Case was discussed with staff of the patient, reviewed records. The patient continues to be easily agitated, aggressive, unruly behavior, angry, argumentative with her peers, refusing symptom medication. Continues to be unpredictable, impulsive, unable to make safe plan for self-care. Sometimes refusing medication. I will be increasing her Seroquel to 25 mg twice a day and continue with the 50 mg at bedtime. No side effects with the medication, no sedation, no nausea, no extrapyramidal symptoms. I will continue to work with the patient in group therapy, milieu therapy, adjust the medication as needed. JOB# [id number]
[2019-03-16] MEDS: Haldol Oral Sol.(concentrate) 10 mg/5 mL Udc PO SCH ×3 (08:49→20:50)
--- NOTE | 2019-03-16 12:39 | Internal Medicine Prog Note ---
Internal Medicine Subjective - Subjective Patient seen and examined:: with staff, chart reviewed Patient is:: awake, verbal, interactive, in bed Per staff patient has:: no adverse event, no episodes of fall, poor appetite, tolerating meds Internal Medicine Objective - Results Result Diagrams: 03/02/19 18:05 03/02/19 18:05 Recent Labs: Laboratory Last Values WBC 5.0 Th/cmm (4.8-10.8) 03/02/19 18:05 RBC 4.77 Mil/cmm (3.80-5.20) 03/02/19 18:05 Hgb 12.8 gm/dL (12-16) 03/02/19 18:05 Hct 39.7 % (41.0-60) L 03/02/19 18:05 MCV 83.4 fl (81-100) 03/02/19 18:05 MCH 26.8 pg (27.0-31.0) L 03/02/19 18:05 MCHC Differential 32.2 pg (28.0-36.0) 03/02/19 18:05 RDW 13.5 % (11.5-20.0) 03/02/19 18:05 Plt Count 196 Th/cmm (150-400) 03/02/19 18:05 MPV 8.5 fl 03/02/19 18:05 Neutrophils % 57.1 % (40.0-80.0) 03/02/19 18:05 Lymphocytes % 30.2 % (20.0-50.0) 03/02/19 18:05 Monocytes % 10.6 % (2.0-10.0) H 03/02/19 18:05 Eosinophils % 1.6 % (0.0-5.0) 03/02/19 18:05 Basophils % 0.5 % (0.0-2.0) 03/02/19 18:05 Sodium 138 mEq/L (136-145) 03/02/19 18:05 Potassium 4.1 mEq/L (3.5-5.1) 03/02/19 18:05 Chloride 101 mEq/L (98-107) 03/02/19 18:05 Carbon Dioxide 28.7 mEq/L (21.0-31.0) 03/02/19 18:05 Anion Gap 12.4 (7.0-16.0) 03/02/19 18:05 BUN 18 mg/dL (7-25) 03/02/19 18:05 Creatinine 0.6 mg/dL (0.6-1.2) 03/02/19 18:05 Est GFR ( Amer) > 60.0 ml/min (>90) 03/02/19 18:05 Est GFR (Non-Af Amer) > 60.0 ml/min 03/02/19 18:05 BUN/Creatinine Ratio 30.0 03/02/19 18:05 Glucose 87 mg/dL (70-105) 03/02/19 18:05 Calcium 9.3 mg/dL (8.6-10.3) 03/02/19 18:05 Total Bilirubin 0.2 mg/dL (0.3-1.0) L 03/02/19 18:05 AST 16 U/L (13-39) 03/02/19 18:05 ALT 14 U/L (7-52) 03/02/19 18:05 Alkaline Phosphatase 52 U/L (34-104) 03/02/19 18:05 Troponin I < 0.01 ng/mL (0.01-0.05) L 03/02/19 18:05 Total Protein 7.0 gm/dL (6.0-8.3) 03/02/19 18:05 Albumin 4.0 gm/dL (3.7-5.3) 03/02/19 18:05 Globulin 3.0 gm/dL 03/02/19 18:05 Albumin/Globulin Ratio 1.3 (1.0-1.8) 03/02/19 18:05 Triglycerides 47 mg/dL (<150) 03/02/19 18:05 Cholesterol 167 mg/dL (<200) 03/02/19 18:05 LDL Cholesterol Direct 66 mg/dL (75-193) L 03/02/19 18:05 HDL Cholesterol 76 mg/dL (23-92) 03/02/19 18:05 TSH 0.22 uIU/ml (0.34-5.60) L 03/02/19 18:05 Salicylates < 25.0 mg/L (30.0-100.0) L 03/02/19 18:05 Acetaminophen < 10.0 ug/mL (10.0-30.0) L 03/02/19 18:05 Ethyl Alcohol < 10 mg/dL (0-10) 03/02/19 18:05 RPR NONREACTIVE (NONREACTIVE) 03/02/19 18:05 - Physical Exam Vitals and I&O: Vital Signs Temp 97.9 F 03/16/19 06:09 Pulse 77 03/16/19 06:09 Resp 20 03/16/19 06:09 BP 152/75 03/16/19 06:09 Pulse Ox 98 03/16/19 06:09 Intake & Output 03/15/19 03/16/19 03/16/19 18:59 06:59 18:59 Intake Total 120 Balance 120 Intake: Oral 120 Other: # Voids 3 # Bowel Movements 0 Active Medications: Current Medications Acetaminophen (Tylenol) 650 mg PO Q4H PRN PRN Reason: Pain Or Fever above 101 Stop: 05/01/19 23:14 Last Admin: 03/08/19 09:18 Dose: 650 mg Bisacodyl (Dulcolax 10 Mg Supp) 10 mg RC DAILY PRN PRN Reason: Constipation Stop: 05/02/19 11:55 Docusate Sodium (Colace) 100 mg PO DAILY RANJAN Stop: 05/02/19 08:59 Last Admin: 03/16/19 08:49 Dose: 100 mg Haloperidol Lactate (Haldol Concentrate 10mg/5ml Susp) 5 mg PO TID RANJAN; Protocol Stop: 05/09/19 08:59 Last Admin: 03/16/19 08:49 Dose: 5 mg Lorazepam (Ativan) 0.5 mg PO Q4H PRN; Protocol PRN Reason: Anxiety Stop: 05/01/19 21:06 Last Admin: 03/04/19 08:15 Dose: 0.5 mg Magnesium Hydroxide (Milk Of Magnesia) 30 ml PO HS RANJAN Stop: 05/02/19 20:59 Last Admin: 03/15/19 20:38 Dose: 30 ml Quetiapine Fumarate (Seroquel) 50 mg PO HS RANJAN; Protocol Stop: 05/02/19 20:59 Last Admin: 03/15/19 20:38 Dose: 50 mg Quetiapine Fumarate (Seroquel) 25 mg PO BID RANJAN; Protocol Stop: 05/14/19 16:59 Last Admin: 03/16/19 08:48 Dose: 25 mg Senna (Senna) 17.2 mg PO HS RANJAN Stop: 05/02/19 20:59 Last Admin: 03/15/19 20:38 Dose: 17.2 mg Sodium Phosphate (Fleet Enema) 135 ml RC Q2D PRN PRN Reason: Constipation Stop: 05/02/19 11:55 Trazodone HCl (Desyrel) 25 mg PO HS RANJAN; Protocol Stop: 05/02/19 20:59 Last Admin: 03/15/19 20:41 Dose: 25 mg Zolpidem Tartrate (Ambien) 5 mg PO HS PRN PRN Reason: Insomnia Stop: 05/01/19 21:06 Last Admin: 03/11/19 21:36 Dose: 5 mg General: thin, appears older HEENT: NC/AT, PERRLA, EOMI, thinning hair Neck: Supple, No JVD Lungs: CTAB Cardiovascular: RRR, Normal S1, Normal S2, with murmur Abdomen: soft, thin, positive bowel sound Extremities: excoriation Neurological: no change Internal Medicine Assmt/Plan - Assessment Assessment: ASSESSMENT AND PLAN: Anemia, low TSH level, above knee amputation, hypertension, and constipation. - Plan Plan: PLAN: fall precaution Continue the patient on laxative. We will monitor the patient blood pressure closely and we will place patient on proper precaution. We will put the patient on non-steroidal anti-inflammatories. We will continue to monitor the patient closely. Nutritional Asmnt/Malnutr-PDOC - Dietary Evaluation Malnutrition Findings (Please click <Entered> for more info): Nutritional Asmnt/Malnutrition Start: 03/05/19 10: 32 Text: Status: Complete Freq: Protocol: Document 03/05/19 10:32 LCHENG (Rec: 03/05/19 10:40 LCHENG [email or web address]) Nutritional Asmnt/Malnutrition Patient General Information Nutritional Screening Moderate Risk Diagnosis psychosis Pertinent Medical Hx/Surgical Hx HTN Subjective Information Per EMR, PO intake 100%. Current Diet Order/ Nutrition Support CCHO Pertinent Medications colace, seroquel, senna Pertinent Labs 03/02 reviewed Nutritional Hx/Data Height 1.63 m Height (Calculated Centimeters) 162.6 Current Weight (lbs) 49.895 kg Weight (Calculated Kilograms) 49.9 Weight (Calculated Grams) 44491.2 [place] Body Weight 120 Body Mass Index (BMI) 18.8 Weight Status Approriate GI Symptoms GI Symptoms None Last BM 03/04 Difficult in: None Skin Integrity/Comment: intact Current %PO Good (75-100%) Estimated Nutritional Goals BEE in Kcals: Using Current wt Calories/Kcals/Kg 25-30 Kcals Calculated 3637-6645 Protein: Using Current wt Protein g/k Protein Calculated 50 Fluid: ml 1250-1500ml (1ml/kcal) Nutritional Problem No current Nutrition Prob Problem N/A Malnutrition Alert Is there a minimum of two criteria No selected? Query Text:Check all the applicable criteria. A minimum of two criteria are recommended for diagnosis of either severe or non-severe malnutrition. Malnutrition Related to Morbid Obesity Malnutrition related to morbid obesity No Intervention/Recommendation Comments 1. Continue with [facility] diet as ordered. 2. Monitor PO intake, wt, labs and skin integrity 3. F/U as low risk in 7 days Expected Outcomes/Goals Expected Outcomes/Goals 1. PO intake to meet at least 75% of nutritional needs. 2. Wt stability, skin to remain intact, labs to approach WNL.
[2019-03-16] MEDS: Magnesium Hydroxide (MOM) 30 mL UDC PO SCH (20:53)
--- NOTE | 2019-03-17 00:07 | Progress Notes ---
DATE: 03/16/2019 SUBJECTIVE: Chart was reviewed and the patient interviewed. Also discussed the patient's condition with the staff and reviewed records and labs. The patient is calmer and less irritable and less agitated. The patient also is easier to redirect. The patient also is trying to interact slightly more. She is still compliant with taking her medications with no side effects of medications. ASSESSMENT: The patient is showing improvement and she is less irritable and less agitated. TREATMENT PLAN: manager tax provided a letter that needs to be signed stating that I am employed by the [facility], which I am not and I refused to sign that paper because it is not true and they need to double check that. At the same time, it seems that placement is still an issue. Meanwhile, we will continue to monitor her condition and her behavior and working on discharge plans, which hopefully will happen anytime soon if placement arranged. JOB# [id number]
[2019-03-17] MEDS: Haldol Oral Sol.(concentrate) 10 mg/5 mL Udc PO SCH ×2 (09:32→14:04)
--- NOTE | 2019-03-17 11:41 | Internal Medicine Prog Note ---
Internal Medicine Subjective - Subjective Patient seen and examined:: with staff, chart reviewed Patient is:: awake, verbal, interactive, in bed Per staff patient has:: no adverse event, no episodes of fall, poor appetite, tolerating meds Internal Medicine Objective - Results Result Diagrams: 03/02/19 18:05 03/02/19 18:05 Recent Labs: Laboratory Last Values WBC 5.0 Th/cmm (4.8-10.8) 03/02/19 18:05 RBC 4.77 Mil/cmm (3.80-5.20) 03/02/19 18:05 Hgb 12.8 gm/dL (12-16) 03/02/19 18:05 Hct 39.7 % (41.0-60) L 03/02/19 18:05 MCV 83.4 fl (81-100) 03/02/19 18:05 MCH 26.8 pg (27.0-31.0) L 03/02/19 18:05 MCHC Differential 32.2 pg (28.0-36.0) 03/02/19 18:05 RDW 13.5 % (11.5-20.0) 03/02/19 18:05 Plt Count 196 Th/cmm (150-400) 03/02/19 18:05 MPV 8.5 fl 03/02/19 18:05 Neutrophils % 57.1 % (40.0-80.0) 03/02/19 18:05 Lymphocytes % 30.2 % (20.0-50.0) 03/02/19 18:05 Monocytes % 10.6 % (2.0-10.0) H 03/02/19 18:05 Eosinophils % 1.6 % (0.0-5.0) 03/02/19 18:05 Basophils % 0.5 % (0.0-2.0) 03/02/19 18:05 Sodium 138 mEq/L (136-145) 03/02/19 18:05 Potassium 4.1 mEq/L (3.5-5.1) 03/02/19 18:05 Chloride 101 mEq/L (98-107) 03/02/19 18:05 Carbon Dioxide 28.7 mEq/L (21.0-31.0) 03/02/19 18:05 Anion Gap 12.4 (7.0-16.0) 03/02/19 18:05 BUN 18 mg/dL (7-25) 03/02/19 18:05 Creatinine 0.6 mg/dL (0.6-1.2) 03/02/19 18:05 Est GFR ( Amer) > 60.0 ml/min (>90) 03/02/19 18:05 Est GFR (Non-Af Amer) > 60.0 ml/min 03/02/19 18:05 BUN/Creatinine Ratio 30.0 03/02/19 18:05 Glucose 87 mg/dL (70-105) 03/02/19 18:05 Calcium 9.3 mg/dL (8.6-10.3) 03/02/19 18:05 Total Bilirubin 0.2 mg/dL (0.3-1.0) L 03/02/19 18:05 AST 16 U/L (13-39) 03/02/19 18:05 ALT 14 U/L (7-52) 03/02/19 18:05 Alkaline Phosphatase 52 U/L (34-104) 03/02/19 18:05 Troponin I < 0.01 ng/mL (0.01-0.05) L 03/02/19 18:05 Total Protein 7.0 gm/dL (6.0-8.3) 03/02/19 18:05 Albumin 4.0 gm/dL (3.7-5.3) 03/02/19 18:05 Globulin 3.0 gm/dL 03/02/19 18:05 Albumin/Globulin Ratio 1.3 (1.0-1.8) 03/02/19 18:05 Triglycerides 47 mg/dL (<150) 03/02/19 18:05 Cholesterol 167 mg/dL (<200) 03/02/19 18:05 LDL Cholesterol Direct 66 mg/dL (75-193) L 03/02/19 18:05 HDL Cholesterol 76 mg/dL (23-92) 03/02/19 18:05 TSH 0.22 uIU/ml (0.34-5.60) L 03/02/19 18:05 Salicylates < 25.0 mg/L (30.0-100.0) L 03/02/19 18:05 Acetaminophen < 10.0 ug/mL (10.0-30.0) L 03/02/19 18:05 Ethyl Alcohol < 10 mg/dL (0-10) 03/02/19 18:05 RPR NONREACTIVE (NONREACTIVE) 03/02/19 18:05 - Physical Exam Vitals and I&O: Vital Signs Temp 0 F 03/17/19 05:12 Pulse 85 03/16/19 19:30 Resp 18 03/16/19 19:30 BP 120/71 03/16/19 19:30 Pulse Ox 96 03/16/19 19:30 Intake & Output 03/16/19 03/17/19 03/17/19 18:59 06:59 18:59 Intake Total 120 Balance 120 Intake: Oral 120 Other: # Voids 3 # Bowel Movements 0 Active Medications: Current Medications Acetaminophen (Tylenol) 650 mg PO Q4H PRN PRN Reason: Pain Or Fever above 101 Stop: 05/01/19 23:14 Last Admin: 03/08/19 09:18 Dose: 650 mg Bisacodyl (Dulcolax 10 Mg Supp) 10 mg RC DAILY PRN PRN Reason: Constipation Stop: 05/02/19 11:55 Docusate Sodium (Colace) 100 mg PO DAILY RANJAN Stop: 05/02/19 08:59 Last Admin: 03/17/19 09:32 Dose: 100 mg Haloperidol Lactate (Haldol Concentrate 10mg/5ml Susp) 5 mg PO TID RANJAN; Protocol Stop: 05/09/19 08:59 Last Admin: 03/17/19 09:32 Dose: 5 mg Lorazepam (Ativan) 0.5 mg PO Q4H PRN; Protocol PRN Reason: Anxiety Stop: 05/01/19 21:06 Last Admin: 03/04/19 08:15 Dose: 0.5 mg Magnesium Hydroxide (Milk Of Magnesia) 30 ml PO HS RANJAN Stop: 05/02/19 20:59 Last Admin: 03/16/19 20:53 Dose: 30 ml Quetiapine Fumarate (Seroquel) 50 mg PO HS RANJAN; Protocol Stop: 05/02/19 20:59 Last Admin: 03/16/19 20:52 Dose: 50 mg Quetiapine Fumarate (Seroquel) 25 mg PO BID RANJAN; Protocol Stop: 05/14/19 16:59 Last Admin: 03/17/19 09:32 Dose: 25 mg Senna (Senna) 17.2 mg PO HS RANJAN Stop: 05/02/19 20:59 Last Admin: 03/16/19 20:51 Dose: 17.2 mg Sodium Phosphate (Fleet Enema) 135 ml RC Q2D PRN PRN Reason: Constipation Stop: 05/02/19 11:55 Trazodone HCl (Desyrel) 25 mg PO HS RANJAN; Protocol Stop: 05/02/19 20:59 Last Admin: 03/16/19 20:51 Dose: 25 mg Zolpidem Tartrate (Ambien) 5 mg PO HS PRN PRN Reason: Insomnia Stop: 05/01/19 21:06 Last Admin: 03/11/19 21:36 Dose: 5 mg General: demented, thin, appears older HEENT: NC/AT, PERRLA, EOMI, thinning hair Neck: Supple, No JVD Lungs: CTAB Cardiovascular: RRR, Normal S1, Normal S2, with murmur Abdomen: soft, thin, positive bowel sound Extremities: excoriation Neurological: no change Internal Medicine Assmt/Plan - Assessment Assessment: ASSESSMENT AND PLAN: Anemia, low TSH level, above knee amputation, hypertension, and constipation. - Plan Plan: PLAN: fall precaution Continue the patient on laxative. We will monitor the patient blood pressure closely and we will place patient on proper precaution. We will put the patient on non-steroidal anti-inflammatories. We will continue to monitor the patient closely. Nutritional Asmnt/Malnutr-PDOC - Dietary Evaluation Malnutrition Findings (Please click <Entered> for more info): Nutritional Asmnt/Malnutrition Start: 03/05/19 10: 32 Text: Status: Complete Freq: Protocol: Document 03/05/19 10:32 LCHENG (Rec: 03/05/19 10:40 LCHENG [email or web address]) Nutritional Asmnt/Malnutrition Patient General Information Nutritional Screening Moderate Risk Diagnosis psychosis Pertinent Medical Hx/Surgical Hx HTN Subjective Information Per EMR, PO intake 100%. Current Diet Order/ Nutrition Support CCHO Pertinent Medications colace, seroquel, senna Pertinent Labs 03/02 reviewed Nutritional Hx/Data Height 1.63 m Height (Calculated Centimeters) 162.6 Current Weight (lbs) 49.895 kg Weight (Calculated Kilograms) 49.9 Weight (Calculated Grams) 63466.2 [place] Body Weight 120 Body Mass Index (BMI) 18.8 Weight Status Approriate GI Symptoms GI Symptoms None Last BM 03/04 Difficult in: None Skin Integrity/Comment: intact Current %PO Good (75-100%) Estimated Nutritional Goals BEE in Kcals: Using Current wt Calories/Kcals/Kg 25-30 Kcals Calculated 5281-8444 Protein: Using Current wt Protein g/k Protein Calculated 50 Fluid: ml 1250-1500ml (1ml/kcal) Nutritional Problem No current Nutrition Prob Problem N/A Malnutrition Alert Is there a minimum of two criteria No selected? Query Text:Check all the applicable criteria. A minimum of two criteria are recommended for diagnosis of either severe or non-severe malnutrition. Malnutrition Related to Morbid Obesity Malnutrition related to morbid obesity No Intervention/Recommendation Comments 1. Continue with [facility] diet as ordered. 2. Monitor PO intake, wt, labs and skin integrity 3. F/U as low risk in 7 days Expected Outcomes/Goals Expected Outcomes/Goals 1. PO intake to meet at least 75% of nutritional needs. 2. Wt stability, skin to remain intact, labs to approach WNL.
--- NOTE | 2019-03-18 07:47 | Discharge Summary ---
DATE OF DISCHARGE: 03/17/2019 AGE: 68 SEX: Female. PHYSICIAN: Dr. Singh. FINAL DIAGNOSIS: PRIMARY DIAGNOSIS: Schizophrenic disorder by history. SECONDARY DIAGNOSIS: Dementia, moderate, with psychotic features and behavioral disturbances. REASON FOR HOSPITALIZATION: The patient was admitted to the hospital from [facility] because of increased aggressive behavior and also increased agitation and she was hitting staff and also was not compliant with taking her medications. HOSPITAL COURSE: The patient continued to be in irritable mood and continued to be agitated. The patient also had difficulty following any of the staff directions. The patient also in the beginning was refusing to take her medications, but later on agreed to take Haldol concentrate and the dose adjusted to 5 mg 3 times a day. Also she started to take Seroquel in a dose of 50 mg at bedtime and 25 mg twice a day. The patient also was not able to sleep good at night and the trazodone was given at a dose of 25 mg at bedtime. Gradually, the patient's affect was brighter. The patient was less agitated and less irritable. The patient also was sleeping better at night. The patient was discharged from the hospital. PHYSICAL EXAMINATION: Physical exam of the patient was basically within normal. The patient had no major medical problems while in the hospital. EXPECTED OUTCOME AFTER DISCHARGE: Fair if the patient continues to take her psychotropic medications and follow up with discharge plans. [facility]# [id number]
== END 2019-03-17 15:45 | DRG 885 ==
LOC: ER 17:11 → GERO2 19:10 → GERO 19:39
PROVIDERS: ADMIT Psychiatry & Neurology Psychiatry; ATTEND Psychiatry & Neurology Psychiatry
DX: F20.9 Schizophrenia, unspecified (principal); Z68.1 Body mass index [BMI] 19.9 or less, adult; F03.91 Unspecified dementia, unspecified severity, with behavioral disturbance; D64.9 Anemia, unspecified; I10 Essential (primary) hypertension; K21.9 Gastro-esophageal reflux disease without esophagitis; K59.00 Constipation, unspecified; F41.9 Anxiety disorder, unspecified; E11.9 Type 2 diabetes mellitus without complications; F29 Unspecified psychosis not due to a substance or known physiological condition; Z89.612 Acquired absence of left leg above knee
CPT/HCPCS: 36415-UA; 80053-TC; 80061-TC; 80320-TC; 80329-TC; 83036-90; 84443-TC; 84484-TC; 85025-TC; 86592-TC; 93005; G0410; J1200; J1630; J2060; Z7610

== ENCOUNTER 2019-05-14 14:55 | Inpatient (IN) | payer MEDICARE ==
--- NOTE | 2019-05-14 15:31 | ED Physician Chart ---
ED Chief Complaint/HPI - Patient Information Date Seen:: 05/14/19 Time Seen:: 15:16 Chief Complaint:: combative History of Present Illness:: this is a 68 yo female senior care patient sent here for evaluation and treatment because she is refusing care and fighting with the staff. she has a mental disorder and was here two months ago for the same problems. Allergies:: Allergies Allergy/AdvReac Type Severity Reaction Status Date / Time codeine Allergy Verified 05/14/19 15:09 Vitals:: Vital Signs - 8 hr 05/14/19 15:01 Temp 98.3 F HR 102 RR 22 BP 134/90 O2 Sat % 95 Historian:: Medical Records Review:: Nurse's Note Reviewed, Old Chart Reviewed ED Review of Systems - Review of Systems General/Constitutional: No fever, No chills, No weight loss, No weakness, No diaphoresis, No edema, No loss of appetite, Other (the review cannot be obtained from this patient ) Skin: No skin lesions, No rash, No bruising Head: No headache, No light-headedness Eyes: No loss of vision, No pain, No diplopia ENT: No earache, No nasal drainage, No sore throat, No tinnitus Neck: No neck pain, No swelling, No thyromegaly, No stiffness, No mass noted Cardio Vascular: No chest pain, No palpitations, No PND, No orthopnea, No edema Pulmonary: No SOB, No cough, No sputum, No wheezing GI: No nausea, No vomiting, No diarrhea, No pain, No melena, No hematochezia, No constipation, No hematemesis G/U: No dysuria, No frequency, No hematuria Musculoskeletal: No bone or joint pain, No back pain, No muscle pain Endocrine: No polyuria, No polydipsia Psychiatric: No prior psych history, No depression, No anxiety, No suicidal ideation Hematopoietic: No bruising, No lymphadenopathy Allergic/Immuno: No urticaria, No angioedema Neurological: No syncope, No focal symptoms, No weakness, No paresthesia, No headache, No seizure, No dizziness, No confusion, No vertigo ED Past Medical History - Past Medical History Obtainable: Yes Past Medical History: HTN, DM, Dyslipidemia, Dementia, Other (was an alcoholic previously) Family History: None Social History: Non Smoker, No Alcohol, No Drug Use, Care Facility Surgical History: other (left abk amputation) Psychiatricy History: Schizophrenia, Dementia Medication: Reviewed Family Medical History - Family Member Mother History Unknown: Yes ED Physical Exam - Physical Examination General/Constitutional: Awake, Well-developed, well-nourished, Alert, No distress, GCS 15, Non-toxic appearing, Ambulatory Other Gen/Cons comments:: combative and loud Head: Atraumatic Eyes: Lids, conjuctiva normal, PERRL, EOMI Skin: Nl inspection, No rash, No skin lesions, No ecchymosis, Well hydrated, No lymphadenopathy ENMT: External ears, nose nl, Nasal exam nl, Lips, teeth, gums nl Neck: Nontender, Full ROM w/o pain, No JVD, No nuchal rigidity, No bruit, No mass, No stridor Respiratory: Nl effort/Exclusion, Clear to Auscultation, No Wheeze/Rhonchi/Rales Cardio Vascular: RRR, No murmur, gallop, rubs, NL S1 S2 GI: No tenderness/rebounding/guarding, No organomegaly, No hernia, Normal BS's, Nondistended, No mass/bruits, No McBurney tenderness : No CVA tenderness Extremities: No tenderness or effusion, Full ROM, normal strength in all extremities, No edema, Normal digits & nails Other Extremities comments:: left above the knee amputation Neuro/Psych: Alert/oriented, DTR's symmetric, Normal sensory exam, Normal motor strength, Judgement/insight normal, Mood normal (combative and uncooperative), Normal gait, No focal deficits Misc: Normal back, No paraspinal tenderness ED Labs/Radiology/EKG Results - Lab Results Results: Abnormal Lab Results 05/14/19 05/14/19 05/14/19 15:29 15:29 15:29 WBC 6.3 RBC 4.51 Hgb 12.9 Hct 37.7 L MCV 83.6 MCH 28.5 MCHC Differential 34.1 RDW 13.2 Plt Count 188 MPV 8.6 Neutrophils % 53.7 Lymphocytes % 36.0 Monocytes % 6.2 Eosinophils % 3.6 Basophils % 0.5 PT 9.3 L INR 0.88 PTT (Actin FS) 24.6 L Sodium 141 Potassium 4.2 Chloride 108 H Carbon Dioxide 24.3 Anion Gap 12.9 BUN 21 Creatinine 0.8 Est GFR ( Amer) > 60.0 Est GFR (Non-Af Amer) > 60.0 BUN/Creatinine Ratio 26.3 Glucose 119 H Calcium 9.6 Total Bilirubin 0.2 L AST 12 L ALT 8 Alkaline Phosphatase 61 Troponin I Total Protein 6.9 Albumin 4.1 Globulin 2.8 Albumin/Globulin Ratio 1.5 Triglycerides 129 Cholesterol 189 LDL Cholesterol Direct 98 HDL Cholesterol 72 TSH RPR 05/14/19 05/14/19 05/14/19 15:29 15:29 15:29 WBC RBC Hgb Hct MCV MCH MCHC Differential RDW Plt Count MPV Neutrophils % Lymphocytes % Monocytes % Eosinophils % Basophils % PT INR PTT (Actin FS) Sodium Potassium Chloride Carbon Dioxide Anion Gap BUN Creatinine Est GFR ( Amer) Est GFR (Non-Af Amer) BUN/Creatinine Ratio Glucose Calcium Total Bilirubin AST ALT Alkaline Phosphatase Troponin I < 0.01 L Total Protein Albumin Globulin Albumin/Globulin Ratio Triglycerides Cholesterol LDL Cholesterol Direct HDL Cholesterol TSH 0.66 RPR NONREACTIVE ED Assessment - Assessment General Assessment: psychosis ED Septic Shock - . Is Septic Shock (SBP<90, OR Lactate>4 mmol\L) present?: No - <6hrs of presentation: Vital Signs: Vital Signs - 8 hr 05/14/19 15:01 Temp 98.3 F HR 102 RR 22 BP 134/90 O2 Sat % 95 ED Reassessment (Disposition) - Reassessment Reassessment Condition:: Unchanged - Diagnosis Diagnosis:: psychosis - Patient Disposition Discharge/Transfer:: Acute Care w/in this hosp Admitting Medical Physician:: Stanley Otto Admitting Psych Physician:: Tomas Fontanez Condition at Disposition:: Unchanged
[2019-05-14 15:41] LABS: % BASOPHILS 0.5 % (0.0-2.0); % EOSINOPHILS 3.6 % (0.0-5.0); % MONOCYTES 6.2 % (2.0-10.0); % NEUTROPHILS 53.7 % (40.0-80.0); EOSINOPHILE ABSOLUTE 0.2 Th/cmm (0.1-0.4); HEMATOCRIT 37.7 % (41.0-60); HEMOGLOBIN 12.9 gm/dL (12-16); LYMPHOCYTE ABSOLUTE 2.3 Th/cmm (1.5-3.0); MEAN CELL VOLUME 83.6 fl (81-100); MEAN CORPUSCULAR HEMOGLOBIN 28.5 pg (27.0-31.0); MEAN CORPUSCULAR HGB CONC 34.1 pg (28.0-36.0); MONOCYTE ABSOLUTE 0.4 Th/cmm (0.3-1.0); NEUTROPHILE ABSOLUTE 3.4 Th/cmm (1.8-8.0); PLATELET COUNT 188 Th/cmm (150-400); RED BLOOD COUNT 4.51 Mil/cmm (3.80-5.20); RED CELL DISTRIBUTION WIDTH 13.2 % (11.5-20.0); WHITE BLOOD COUNT 6.3 Th/cmm (4.8-10.8)
[2019-05-14 15:56] LABS: INR 0.88 (0.5-1.4)
[2019-05-14 16:05] LABS: ALB/GLOB RATIO 1.5 (1.0-1.8); ALBUMIN 4.1 gm/dL (3.7-5.3); ALKALINE PHOSPHATASE 61 U/L (34-104); ANION GAP 12.9 (7.0-16.0); BILIRUBIN,TOTAL 0.2 mg/dL (0.3-1.0); BUN - UREA NITROGEN 21 mg/dL (7-25); CALCIUM SERUM 9.6 mg/dL (8.6-10.3); CARBON DIOXIDE 24.3 mEq/L (21.0-31.0); CHLORIDE 108 mEq/L (98-107); CHOLESTEROL 189 mg/dL (<200); CREATININE - SERUM 0.8 mg/dL (0.6-1.2); GFR AFRICAN-AMERICAN > 60.0 ml/min (>90); GFR NON AFRICAN-AMERICAN > 60.0 ml/min; GLUCOSE 119 mg/dL (70-105); HDL -HIGH DENSITY LIPOPROTEIN 72 mg/dL (23-92); POTASSIUM SERUM 4.2 mEq/L (3.5-5.1); SGOT 12 U/L (13-39); SGPT/ALT 8 U/L (7-52); SODIUM SERUM 141 mEq/L (136-145); TOTAL PROTEIN,SERUM 6.9 gm/dL (6.0-8.3); TRIGLYCERIDES 129 mg/dL (<150)
[2019-05-14] MEDS ORDERED: Maalox 30 mL Cup PO PRN (16:46)
[2019-05-14] MEDS ORDERED: Magnesium Hydroxide (MOM) 30 mL UDC PO PRN (16:46)
[2019-05-14 17:14] VITALS: BP 136/46
[2019-05-14] MEDS ORDERED: QUETIAPINE FUMARATE 150 MG PO SCH (21:00)
[2019-05-15 06:05] LABS: A1C 5.8 % (4.8-5.6)
[2019-05-15] MEDS: Multivitamin Tab PO SCH (08:24)
--- NOTE | 2019-05-15 08:44 | Diagnostic Imaging Report ---
Portable chest x-ray HISTORY: Shortness of breath The overall heart size is difficult to assess with portable technique and a poor inspiration. No acute focal pulmonary processes are seen. No hilar or mediastinal abnormalities. IMPRESSION: 1. No definite acute abnormalities
[2019-05-16] MEDS: Multivitamin Tab PO SCH (08:59)
--- NOTE | 2019-05-16 09:17 | Psychiatric Evaluation ---
DATE OF SERVICE: 05/15/2019 JUSTIFICATION FOR HOSPITALIZATION: The patient is a 68-year-old female conserved, brought to the hospital from a prison due to refusing self-care and fighting with staff. The patient has multiple admissions to [facility] for similar issues. CHIEF COMPLAINT: "I don't need no psychiatrist." IDENTIFICATION: This is a 68-year-old female with a history of psychosis brought to [facility] for evaluation and treatment for agitation at a prison including refusing self-care and fighting with staff. HISTORY OF PRESENT ILLNESS: The patient was interviewed this afternoon at bedside. The patient is extremely agitated. She reports "I don't need no psychiatrist." She is getting extremely angered. She is very hostile. She is verbally abusive towards this provider. She is uncooperative with interview. She reports that "there is nothing wrong with me." She denies having a conservator, although she is conserved through [facility]. In addition, she is unwilling to disclose any information and becomes increasingly agitated and hostile and interview was terminated due to safety reasons. Of note, per nursing staff, the patient was extremely agitated earlier and required observation room. The patient also required p.r.n. medications for her agitation. She was not redirectable, and she needed medications emergently for her condition. Otherwise, history is unable to be obtained due to the patient's poor cooperation and agitation. PAST PSYCHIATRIC HISTORY: The patient apparently has a history of psychosis. She is currently prescribed Seroquel and trazodone. The patient has multiple admissions to [facility] for agitation and psychosis. MEDICAL HISTORY: Hypertension, diabetes, dyslipidemia, and history of alcoholism, also please see H and P. ALLERGIES: TO CODEINE. SOCIAL HISTORY: The patient resides in a prison. She is currently conserved through [facility]. The patient has a history of alcohol abuse, but denies any current tobacco, alcohol or illicit substance use. The patient does report having a daughter local but she is unable to elaborate much more than this. LEGAL HISTORY: The patient is currently conserved but denies any legal issues at this time. ABUSE HISTORY: Denies. FAMILY HISTORY: Denies. MENTAL STATUS EXAMINATION: The patient is an elderly female sitting in a wheelchair, who appears her stated age. She has poor eye contact. She is poorly cooperative with the interview. Her speech is loud, irritable and pressured. Her mood and affect are angered and labile. Her thought process is disorganized. Unable to assess suicidal or homicidal thoughts, but the patient is hostile and threatening. The patient also appears to be internally preoccupied, possibly responding to internal stimuli, also quite paranoid of others. The patient is alert. She is oriented to person. She understands she is in the hospital. She is able to state the month and the year, and she is also able to name the current President. Her insight, judgment, and impulse control remain very poor at this time. ASSESSMENT: This is a 68-year-old female admitted to [facility]. She is conserved. She was transferred to the hospital due to significant agitation, fighting with staff, refusing care. The patient at this time continues to remain extremely agitated. She needs constant redirection on the unit. She is easily angered. She is hostile. She is verbally abusive. She is uncooperative with her care. She also has poor insight to her condition, poor insight to her behaviors. She states that she has no mental health issues and states that she will not take any medications. PROVISIONAL DIAGNOSES: 1. Unspecified psychosis. 2. History of alcoholism. TREATMENT PLAN: We will accept the patient to acute hospitalization. We will restart the patient's home medications of Seroquel extended release 150 mg p.o. at bedtime and also Seroquel 25 mg p.o. daily. We will also start the patient on trazodone 50 mg p.o. at bedtime, which is her home dose. We will also start p.r.n. medications for anxiety and also for insomnia. We will also continue to follow the case alongside with associate professor of art. I will also encourage the patient to verbalize her needs and to participate in group and milieu therapy. ESTIMATED LENGTH STAY: 5-7 days. STRENGTHS AND WEAKNESSES: STRENGTHS: The patient's strength includes support through conservator and ability to communicate. WEAKNESSES: Include ineffective coping and poor judgment and poor insight. AFTER DISCHARGE PLAN: The patient will return to her prison and continue with outpatient treatment. CONDITION FOR DISCHARGE: Condition for discharge will be improved mood with less agitation, improved frustration tolerance, and decrease in psychosis. [facility]# [id number] MTDD
[2019-05-16] MEDS ORDERED: OLANZapine 5 mg Oral Disintegrating Tab PO PRN (15:43)
--- NOTE | 2019-05-17 01:26 | Progress Notes ---
DATE: 05/16/2019 SUBJECTIVE: The patient was interviewed. Case was discussed with staff. Chart reviewed. Per the staff, the patient has been agitated. She has been screaming. She has been pounding on the door. She has been placed in the seclusion observation room for timeout, and the patient was interviewed this afternoon at bedside. The patient is extremely angry. The patient is very threatening. She is very hostile. Interview had to be terminated prematurely due to her extreme anger and agitation and threatening behavior. MENTAL STATUS EXAMINATION: The patient is lying in bed. She has poor eye contact. Her speech is loud, pressured and angered. Her mood is angry. Her affect is labile. Thought process is disorganized. Unable to assess for suicidal ideations, but the patient is threatening, threatening to hurt this provider. The patient is responding heavily to internal stimuli. The patient also is very paranoid of others. She is alert and oriented to person and place. Her insight, judgment and impulse control is poor. ASSESSMENT: The patient is a 68-year-old female who is conserved in [facility] admitted to [facility] due to refusing self-care and becoming hostile, cursing and physically assaultive towards staff at the residential. The patient at this time continues with these behaviors. She is threatening. She is threatening harm towards this provider. She is loud, impulsive, hyperverbal, pressured, also extremely angered, not following any redirection and also needing to be placed in the observation room. PLAN: We will continue the patient's acute hospitalization. We will increase the patient's Seroquel to 50 mg in the morning and continue Seroquel immediate release at 150 mg p.o. at bedtime. We will continue all other medications. We will start the patient on Zydis 5 mg every 8 hours as needed for episodes of psychosis and agitation. We will also continue to encourage the patient to verbalize her needs and participate in group and milieu therapy. [facility]# [id number]
[2019-05-17] MEDS: Multivitamin Tab PO SCH (08:14)
[2019-05-17] MEDS ORDERED: Haloperidol Lactate 5 mg/mL 1mL Vial IM ONE (16:02)
--- NOTE | 2019-05-17 23:04 | Progress Notes ---
DATE: 05/17/2019 SUBJECTIVE The patient in the hospital, very aggressive, throwing coffee at staff, telling people to "get the fuck out." The patient not wanting to talk to me, saying does not need a psychiatrist, conserved, long history of mental illness, remains unruly, agitated, combative. Staff having a hard time even approaching her, needing the p.r.n. medications. PLAN: We will continue to monitor, titrate and adjust medications. The patient will likely need dosage increases of antipsychotics given her behavior. JOB# [id number]
[2019-05-18] MEDS: Multivitamin Tab PO SCH (08:25)
--- NOTE | 2019-05-18 21:23 | Progress Notes ---
DATE: 05/18/2019 SUBJECTIVE: The patient is agitated, aggressive, stating that she is not a mental health patient and has never been to a psych hospital, but she is conserved. She gets aggressive, demanding. She was throwing coffee yesterday, very impulsive, unpredictable. The patient is on p.r.n. medication, Seroquel, trazodone. The patient disorganized, talking nonsense and grandiose. We will continue to monitor. I will be increasing her dosing of Seroquel today. Ongoing safety concerns, no events over the past 24 hours. JOB# [id number]
[2019-05-19] MEDS: Multivitamin Tab PO SCH (09:20)
[2019-05-20] MEDS: Multivitamin Tab PO SCH (09:02)
--- NOTE | 2019-05-21 00:27 | Progress Notes ---
DATE: 05/20/2019 SUBJECTIVE: Case was discussed with staff of the patient, reviewed records. This is a 68-year-old female who was admitted on 05/14/2019 from a halfway because she was fighting with the staff with multiple prior admissions to [facility] for similar issues. The patient is demented, confused, easily agitated, hostile, and verbally abusive. The patient came from a nursing facility, conserved through [facility], also has a history of alcohol abuse, unable to make safe plan for self-care, unpredictable, impulsive, demanding at times, throwing coffee the other day, very disorganized. No side effects with the medication, no sedation, no nausea, no extrapyramidal symptoms. She is on olanzapine 5 mg every 8 hours as needed and Seroquel 50 mg in the morning and 200 mg at bedtime and no side effects, no sedation, no nausea, no extrapyramidal symptoms. We will continue to work with the patient in group therapy, milieu therapy, adjust the medication as needed. JOB# [id number]
[2019-05-21] MEDS: Multivitamin Tab PO SCH (09:01)
--- NOTE | 2019-05-21 22:49 | Progress Notes ---
DATE: 05/21/2019 Case was discussed with staff of the patient, reviewed records. Covering for Dr. Edwards. The patient continues to be unpredictable, impulsive, confused, easily agitated, hostile, and verbally abusive. Continues to have poor insight. Continues to be unable to make safe plan for self-care. Tolerating the increase in Seroquel with no side effects, no sedation, no nausea, no extrapyramidal symptoms. I will continue outpatient in group therapy, milieu therapy, and adjust medication as needed. JOB# [id number]
[2019-05-22] MEDS: Multivitamin Tab PO SCH (08:30)
--- NOTE | 2019-05-22 15:54 | Progress Notes ---
DATE: 05/22/2019 The patient in the hospital remains impulsive, unpredictable, verbally abusive towards staff, yelling, screaming episodes, not talking to me whatsoever this morning telling me to go away. Angry upset, had been really aggressive on the unit previously, throwing things at staff. ASSESSMENT: The patient remains acute, still violent, very impulsive, highly unpredictable. We will continue to adjust dosages of medications. Increase for example dosing of Seroquel. [facility]# [id number]
[2019-05-23] MEDS: Multivitamin Tab PO SCH (08:47)
--- NOTE | 2019-05-23 17:28 | Progress Notes ---
DATE: 05/23/2019 The patient in the hospital, impulsive, unpredictable, ongoing yelling episodes, still remains fairly unstable, slept for about 7 hours, agitated, easily angered, aggressive, not want to talk to me telling me go away. Still cursing and yelling at staff "bitch", "fuck you", "my feet" people, sometimes refusing medications. The patient once again is refusing to speak with me this morning. Per staff, she slept fairly well, but remains pretty unpredictable. We will continue to monitor. We are continuing to increase her dosages of medications and titrate dosing of Seroquel. JOB# [id number]
[2019-05-23] MEDS ORDERED: QUEtiapine Fumarate ER 200 MG, QUEtiapine Fumarate ER 100 MG PO SCH (21:00)
[2019-05-24] MEDS: Multivitamin Tab PO SCH (08:17)
--- NOTE | 2019-05-24 20:42 | Progress Notes ---
DATE: 05/24/2019 SUBJECTIVE: The patient in the hospital, slept about 6-7 hours. Forgetful, easily agitated, irritable, stating that she wants to leave. She wants to get off the conservatorship, she is going to call the court. Noted to be mumbling to self, responding to internal stimuli. Poorly oriented, still cursing, yelling at staff. She seems somewhat calmer on exam, seems to be tolerating dose increases of Seroquel. PLAN: We will continue to monitor closely. We will continue to increase and titrate dosing of Seroquel slowly to target ongoing paranoia, has delusions, ongoing anger, irritability, mood symptoms. [facility]# [id number]
[2019-05-25] MEDS: Multivitamin Tab PO SCH (08:59)
[2019-05-26] MEDS: Multivitamin Tab PO SCH (09:51)
--- NOTE | 2019-05-26 10:06 | Progress Notes ---
DATE: 05/25/2019 SUBJECTIVE: The patient remains irritable, upset, very impulsive, unpredictable, easily agitated, verbally abusive towards staff, still yelling, screaming, very demanding. The patient tolerant of treatment thus far. Recent dose adjustments of medications have been made. She has been calmer since her admission certainly. The patient to [facility]. The patient does have a conservator. The patient does not want the conservator states that she will be calling the court to try to get off the conservatorship. Fair sleep or appetite, seems to be getting along fairly well with others, likely approaching her baseline. PLAN: We will continue to monitor. JOB# [id number]
--- NOTE | 2019-05-26 21:18 | Discharge Summary ---
DATE OF DISCHARGE: 05/26/2019 HISTORY OF PRESENT ILLNESS: A 68-year-old female with history of schizophrenia, conserved, was unruly, agitated, throwing things at staff, hostile, uncooperative, paranoid of other suspicious. PAST PSYCHIATRIC HISTORY: Admissions in the past, history of schizophrenia, conserved. Medications were noted. PROVISIONAL DIAGNOSIS: Schizophrenia, history of alcoholism. HOSPITAL COURSE: After initial assessment, the patient's Seroquel was restarted and titrated. Over the course of treatment, she did calm down. She was less agitated, more cooperative, no longer aggressive, no longer hostile, no longer psychotic, no longer paranoid. Toward the lateral end of treatment, she was following unit rules and directions and tolerant of treatment. CONDITION UPON DISCHARGE: Improved, allowing ADLs. Mood "fine" and affect constricted. Thought processes were linear. No SI, no HI, no overt psychotic symptoms, better insight. PROVISIONAL DIAGNOSIS: Schizophrenia. MEDICAL: Please see full H and P. PROGNOSIS: If the patient follows up with outpatient mental health services and remains compliant with treatment, prognosis will improve, otherwise guarded. Sent to [facility]. Medications to follow her there including Seroquel. JOB# [id number]
== END 2019-05-26 18:30 | DRG 885 ==
LOC: ER 14:55 → GERO2 16:20 → GERO 16:45 → GERO2 05-17 10:07 → GERO 05-18 17:34
PROVIDERS: ADMIT Psychiatry & Neurology Psychiatry; ATTEND Psychiatry & Neurology Psychiatry
DX: F20.9 Schizophrenia, unspecified (principal); F29 Unspecified psychosis not due to a substance or known physiological condition; I10 Essential (primary) hypertension; E11.9 Type 2 diabetes mellitus without complications; E78.5 Hyperlipidemia, unspecified; F03.90 Unspecified dementia, unspecified severity, without behavioral disturbance, psychotic disturbance, mood disturbance, and anxiety; F10.21 Alcohol dependence, in remission; Z88.5 Allergy status to narcotic agent; Z89.512 Acquired absence of left leg below knee
CPT/HCPCS: 36415-UA; 71045-TC; 80053-TC; 80061-TC; 82948-90; 83036-90; 84443-TC; 84484-TC; 85025-TC; 85610-TC; 85730-TC; 86592-TC; G0410; J1200; J1630; J2060; Z7610

== ENCOUNTER 2019-06-04 08:15 | Inpatient (IN) | payer MEDICARE ==
[2019-06-04] MEDS ORDERED: Haloperidol Lactate 5 mg/mL 1mL Vial IM STA (08:21)
[2019-06-04] MEDS ORDERED: Haloperidol Lactate 5 mg/mL 1mL Vial ONE (08:26)
--- NOTE | 2019-06-04 08:28 | ED Physician Chart ---
ED Chief Complaint/HPI - Patient Information Date Seen:: 06/04/19 Time Seen:: 08:15 Chief Complaint:: Agitation History of Present Illness:: onset x 2 days of agitation and hostile behavior; no report of trauma, H/As, neck pain, SIs, C/P, SOB, Abd. Pain, or urinary s/s Allergies:: Allergies Allergy/AdvReac Type Severity Reaction Status Date / Time codeine Allergy Verified 06/04/19 08:23 Historian:: Patient, EMS Review:: Nurse's Note Reviewed, Old Chart Reviewed, EMS run form Reviewed ED Review of Systems - Review of Systems General/Constitutional: No fever, No chills, No weight loss, No weakness, No diaphoresis, No edema, No loss of appetite Skin: No skin lesions, No rash, No bruising Head: No headache, No light-headedness Eyes: No loss of vision, No pain, No diplopia ENT: No earache, No nasal drainage, No sore throat, No tinnitus Neck: No neck pain, No swelling, No thyromegaly, No stiffness, No mass noted Cardio Vascular: No chest pain, No palpitations, No PND, No orthopnea, No edema Pulmonary: No SOB, No cough, No sputum, No wheezing GI: No nausea, No vomiting, No diarrhea, No pain, No melena, No hematochezia, No constipation, No hematemesis G/U: No dysuria, No frequency, No hematuria, No nacturia Wedger Machine: No vaginal discharge, No abnormal vaginal bleed, No contraction Musculoskeletal: No bone or joint pain, No back pain, No muscle pain Endocrine: No polyuria, No polydipsia Psychiatric: Prior psych history, Depression, Anxiety, No suicidal ideation, No homicidal ideation, No auditory hallucination, No visual hallucination Hematopoietic: No bruising, No lymphadenopathy Allergic/Immuno: No urticaria, No angioedema Neurological: No syncope, No focal symptoms, No weakness, No paresthesia, No headache, No seizure, No dizziness, No confusion, No vertigo ED Past Medical History - Past Medical History Obtainable: Yes Past Medical History: HTN, DM Family History: HTN Social History: Non Smoker, No Alcohol, No Drug Use, Single, Care Facility Surgical History: other (BKA) Psychiatricy History: Depression, Schizophrenia, Bipolar Medication: Reviewed Family Medical History - Family Member Mother History Unknown: Yes ED Physical Exam - Physical Examination General/Constitutional: Awake, Well-developed, well-nourished, Alert, No distress, GCS 15, Non-toxic appearing, Ambulatory Head: Atraumatic Eyes: Lids, conjuctiva normal, PERRL, EOMI Skin: Nl inspection, No rash, No skin lesions, No ecchymosis, Well hydrated, No lymphadenopathy ENMT: External ears, nose nl, TM canals nl, Nasal exam nl, Lips, teeth, gums nl , Oropharynx nl, Tonsils nl Neck: Nontender, Full ROM w/o pain, No JVD, No nuchal rigidity, No bruit, No mass, No stridor Respiratory: Nl effort/Exclusion, Clear to Auscultation, No Wheeze/Rhonchi/Rales Cardio Vascular: RRR, No murmur, gallop, rubs, NL S1 S2, Carotid/Femoral/Distal pulses equal bilaterally GI: No tenderness/rebounding/guarding, No organomegaly, No hernia, Normal BS's, Nondistended, No mass/bruits, No McBurney tenderness : No CVA tenderness Extremities: No tenderness or effusion, Full ROM, normal strength in all extremities, No edema, Normal digits & nails Neuro/Psych: Alert/oriented, DTR's symmetric, Normal sensory exam, Normal motor strength, Judgement/insight normal, Mood normal, Normal gait, No focal deficits Other Neuro/Psych comments:: + Psychomotor Agitation; no SIs; Mood/Affect: Labile Misc: Normal back, No paraspinal tenderness ED Labs/Radiology/EKG Results - Lab Results Comments:: Reviewed - EKG Interpretations EKG Time:: 10:08 Rate & Rhythm: 75; NSR Comments:: non-specific st-t changes ED Septic Shock - . Is Septic Shock (SBP<90, OR Lactate>4 mmol\L) present?: No ED Reassessment (Disposition) - Reassessment Reassessment Condition:: Improved - Diagnosis Diagnosis:: Agitation; Medical Clearance; Psychosis; Bipolar Disorder - Aftercare/Follow up Instructions Aftercare/Follow-Up Instructions:: Counseled pt regarding lab results/diagnosis & need follow up, Counseled pt & family regarding lab results/diagnosis & need follow up - Patient Disposition Discharge/Transfer:: Acute Care w/in this hosp Admitted to:: [facility] Condition at Disposition:: Stable, Improved
[2019-06-04 09:29] LABS: % EOSINOPHILS 3.6 % (0.0-5.0); % LYMPHOCYTES 35.1 % (20.0-50.0); % NEUTROPHILS 54.3 % (40.0-80.0); EOSINOPHILE ABSOLUTE 0.2 Th/cmm (0.1-0.4); HEMATOCRIT 35.1 % (41.0-60); HEMOGLOBIN 11.8 gm/dL (12-16); LYMPHOCYTE ABSOLUTE 1.8 Th/cmm (1.5-3.0); MEAN CELL VOLUME 83.2 fl (81-100); MEAN CORPUSCULAR HEMOGLOBIN 27.9 pg (27.0-31.0); MEAN CORPUSCULAR HGB CONC 33.6 pg (28.0-36.0); MONOCYTE ABSOLUTE 0.3 Th/cmm (0.3-1.0); NEUTROPHILE ABSOLUTE 2.7 Th/cmm (1.8-8.0); PLATELET COUNT 131 Th/cmm (150-400); RED BLOOD COUNT 4.21 Mil/cmm (3.80-5.20); RED CELL DISTRIBUTION WIDTH 12.4 % (11.5-20.0)
[2019-06-04 09:34] LABS: ALB/GLOB RATIO 1.6 (1.0-1.8); ALBUMIN 3.9 gm/dL (3.7-5.3); ALKALINE PHOSPHATASE 47 U/L (34-104); ANION GAP 12.1 (7.0-16.0); BILIRUBIN,TOTAL 0.4 mg/dL (0.3-1.0); BUN - UREA NITROGEN 17 mg/dL (7-25); CALCIUM SERUM 9.4 mg/dL (8.6-10.3); CHLORIDE 108 mEq/L (98-107); CHOLESTEROL 171 mg/dL (<200); CREATININE - SERUM 0.8 mg/dL (0.6-1.2); GFR AFRICAN-AMERICAN > 60.0 ml/min (>90); GFR NON AFRICAN-AMERICAN > 60.0 ml/min; GLUCOSE 92 mg/dL (70-105); HDL -HIGH DENSITY LIPOPROTEIN 70 mg/dL (23-92); POTASSIUM SERUM 4.1 mEq/L (3.5-5.1); SGOT 15 U/L (13-39); SGPT/ALT 8 U/L (7-52); SODIUM SERUM 141 mEq/L (136-145); TOTAL PROTEIN,SERUM 6.3 gm/dL (6.0-8.3); TRIGLYCERIDES 40 mg/dL (<150)
[2019-06-04 09:53] LABS: ACETAMINOPHEN < 10.0 ug/mL (10.0-30.0)
[2019-06-04 11:13] VITALS: BP 121/75
[2019-06-04] MEDS ORDERED: Magnesium Hydroxide (MOM) 30 mL UDC PO PRN ×2 (11:15→11:32)
[2019-06-04] MEDS ORDERED: Maalox 30 mL Cup PO PRN ×2 (11:15→11:32)
[2019-06-04] MEDS ORDERED: OLANZapine 5 mg Oral Disintegrating Tab PO PRN (11:33)
[2019-06-04 11:40] LABS: CHOLESTEROL 175 mg/dL (<200); HDL -HIGH DENSITY LIPOPROTEIN 71 mg/dL (23-92); TRIGLYCERIDES 42 mg/dL (<150)
[2019-06-05 06:04] LABS: A1C 5.7 % (4.8-5.6)
[2019-06-05] MEDS ORDERED: Multivitamin Tab PO SCH (09:00)
--- NOTE | 2019-06-05 09:51 | Psychiatric Evaluation ---
DATE OF SERVICE: 06/04/2019 JUSTIFICATION FOR HOSPITALIZATION: Aggressive, agitation over the past 48 hours. CHIEF COMPLAINT: "Get the fuck out of here." HISTORY OF PRESENT ILLNESS: A 68-year-old female well known to this clinician agitated, aggressive, hostile. The staff at [facility] could not control her behavior as patient is conserved. History of schizophrenia, was in the hospital, not too long ago. PAST PSYCHIATRIC HISTORY: Schizophrenia, chronic medications were noted. SOCIAL HISTORY: Coming from a care home, conserved. MEDICATIONS: Noted. MENTAL STATUS EXAMINATION: Stated age, yelling, screaming, telling me to get out, disorganized, suspicious, paranoid. Limited interview. MEDICAL HISTORY: Noted. PROVISIONAL DIAGNOSIS: Schizophrenia. MEDICAL: Please see full H and P. ESTIMATED LENGTH OF STAY: 5-10 days. ASSESSMENT: The patient combative, aggressive, agitated, hostile. We will adjust medications. TREATMENT PLAN: Includes group as well as milieu therapy. CONDITIONS FOR DISCHARGE: Improved mood, improved affect, better control of her mood symptoms. I will be increasing her dosing of Seroquel. JOB# [id number]
[2019-06-05] MEDS: Multivitamin Tab PO SCH (10:30)
[2019-06-06] MEDS: Multivitamin Tab PO SCH (10:14)
--- NOTE | 2019-06-06 18:32 | Progress Notes ---
DATE: 06/05/2019 SUBJECTIVE: The patient was seen and evaluated. The patient's chart reviewed. Covering for Dr. Fontanez. IDENTIFYING DATA: A 68-year-old female brought in here for agitated and aggressive behavior from [facility]. Today on [id number] evaluation, the patient is in her bed, starts cursing immediately, "get the ____ out of my room." When attempting to validate the patient's emotions and also identify the patient's medication, she becomes more irritable and starts verbally threatening. Medication reconciliation reviewed. Gabapentin 100 mg p.o. b.i.d., olanzapine 5 mg q. 8 hours as needed and quetiapine 200 mg p.o. daily and Seroquel 400 mg at bedtime. Nursing staff reported the patient has been refusing medication. ASSESSMENT AND PLAN: The patient is a 68-year-old female who presents with psychotic ____ patient is verbally threatening towards the staff. Because of her suspicious and paranoid behavior, unable to formulate a safe plan. If the patient continues to refuse medications, we may consider ____ the patient on Friday after the court open. JOB# [id number]
--- NOTE | 2019-06-06 22:35 | Progress Notes ---
DATE: 06/06/2019 SUBJECTIVE: The patient was seen and evaluated. The patient's chart reviewed. Covering for Dr. Fontanez. Nursing staff reported that patient has been agitated, irritable, cursing at times, responding and acting inappropriately. Today on [id number] evaluation, the patient immediately starts cursing "who the fuck are you" and then refused when attempting to validate her emotions and her history, she becomes more aggressive and starts cursing again and refuses to be interviewed. ASSESSMENT AND PLAN: Suspicious. We will discontinue the patient's Seroquel as she has been refusing and since there is such high dosages if she were to accept them she is extremely high risk of adverse effects. We will restart the patient on Zyprexa at 5 mg. Discussed with her the risks, benefits, adverse effects and her diagnosis of schizophrenia and alternatives. Her response back to me is "fuck you, get away." Therefore, inability to consent for medications. May consider riesing the patient in the near future by primary psychiatrist. JOB# [id number]
[2019-06-07] MEDS: Multivitamin Tab PO SCH (09:03)
[2019-06-08] MEDS: Multivitamin Tab PO SCH (08:44)
--- NOTE | 2019-06-08 09:37 | Progress Notes ---
DATE: 06/07/2019 SUBJECTIVE: A 68-year-old female, hostile, unpleasant, belligerent, continues to believe that she is not conserved when she is in fact conserved, remains unruly, responds inappropriately, yelling, screaming, very volatile. PLAN: We will continue to monitor, trying to get conservatorship paperwork. We have her on dosing of Zyprexa. We will continue to monitor closely. We will be increasing her dosing of Zyprexa. [facility]# [id number]
--- NOTE | 2019-06-08 22:13 | Progress Notes ---
DATE: 06/08/2019 The patient in the hospital, still agitated, labile, mad and gets upset. Yells, screams, curses at the top of her lungs. Mostly withdrawn, isolative, keeps to self; sometimes yelling, screaming, angry, very poor insight, states there is nothing wrong with her. States she is not conserved, still with outbursts, very impulsive, unpredictable. I have been titrating her medications, currently on a dosing of Zyprexa. We will continue to monitor. We will continue to titrate medications. I will be increasing her dosing of Zyprexa today to continue to target her ongoing psychotic symptoms, very unstable mood, outbursts of anger. [facility]# [id number]
[2019-06-09] MEDS: Multivitamin Tab PO SCH (09:14)
--- NOTE | 2019-06-09 18:59 | History & Physical ---
ADMIT DATE: 06/04/2019 CHIEF COMPLAINT: Agitation. HISTORY OF PRESENT ILLNESS: The patient who has onset of two day's agitation and hostile behavior. The patient was transferred to [facility] [place] for evaluation. ALLERGIES: CODEINE. PAST MEDICAL HISTORY: 1. Hypertension. 2. Diabetes mellitus. 3. Depression. 4. Schizophrenia bipolar disorder. 5. Dementia. PAST SURGICAL HISTORY: Left knee amputation. SOCIAL HISTORY: No reports of smoking or drug use. The patient is a resident of correction facility. PHYSICAL EXAMINATION: GENERAL: The patient is awake, alert. No acute distress. VITAL SIGNS: On admission see nursing note. HEENT: Normocephalic, atraumatic. Oropharynx is clear. NECK: Supple, no thyromegaly. No lymphadenopathy. CARDIOVASCULAR: S1, S2. No murmurs, rubs, clicks or gallops. RESPIRATORY: Clear. No wheezing or rhonchi. GENITOURINARY: No CVA tenderness or suprapubic tenderness. BACK: No midline tenderness. EXTREMITIES: Equal pulses bilaterally present. The patient has a left knee amputation. PSYCHIATRIC: Unable to assess. NEUROLOGIC: Alert and oriented. Normal sensory exam. Cyndi motor strength exam. IMPRESSION: 1. Agitation. 2. Acute psychosis. 3. Depression. 4. Schizophrenia. 5. Bipolar disorder. 6. Hypertension. 7. Diabetes mellitus. 8. Dyslipidemia. 9. Dementia. PLAN: The patient will be admitted to med psych unit, see admission orders by psychiatry. JOB# [id number] [facility]
--- NOTE | 2019-06-09 21:48 | Progress Notes ---
DATE: 06/09/2019 SUBJECTIVE: The patient is angry, upset, believes that people are targeting her, "doing the wrong thing," impulsive, unpredictable, easily agitated, irritable, will start talking to self, cursing, yelling. [facility] facility is not accepting her back because she is so aggressive over there, agitated, unruly. The patient is still upset, wants to leave. We do not really know where to send her. PLAN: We will continue to monitor and I will be also increasing her dosing of Zyprexa today. We will continue to monitor ongoing psychotic symptoms, delusions, paranoias. Fair sleep, fair appetite. [facility]# [id number]
--- NOTE | 2019-06-10 09:15 | General Progress Note ---
Subjective - Review of Systems Service Date: 06/10/19 Subjective: * Patient is still in psych unit * Patient is still agitated * SNF does not want to accept her back Objective - Results Result Diagrams: 06/04/19 08:46 06/04/19 08:46 Recent Labs: Laboratory Last Values WBC 5.0 Th/cmm (4.8-10.8) 06/04/19 08:46 RBC 4.21 Mil/cmm (3.80-5.20) 06/04/19 08:46 Hgb 11.8 gm/dL (12-16) L 06/04/19 08:46 Hct 35.1 % (41.0-60) L 06/04/19 08:46 MCV 83.2 fl (81-100) 06/04/19 08:46 MCH 27.9 pg (27.0-31.0) 06/04/19 08:46 MCHC Differential 33.6 pg (28.0-36.0) 06/04/19 08:46 RDW 12.4 % (11.5-20.0) 06/04/19 08:46 Plt Count 131 Th/cmm (150-400) L 06/04/19 08:46 MPV 9.0 fl 06/04/19 08:46 Neutrophils % 54.3 % (40.0-80.0) 06/04/19 08:46 Lymphocytes % 35.1 % (20.0-50.0) 06/04/19 08:46 Monocytes % 7.0 % (2.0-10.0) 06/04/19 08:46 Eosinophils % 3.6 % (0.0-5.0) 06/04/19 08:46 Basophils % 0.0 % (0.0-2.0) 06/04/19 08:46 Sodium 141 mEq/L (136-145) 06/04/19 08:46 Potassium 4.1 mEq/L (3.5-5.1) 06/04/19 08:46 Chloride 108 mEq/L (98-107) H 06/04/19 08:46 Carbon Dioxide 25.0 mEq/L (21.0-31.0) 06/04/19 08:46 Anion Gap 12.1 (7.0-16.0) 06/04/19 08:46 BUN 17 mg/dL (7-25) 06/04/19 08:46 Creatinine 0.8 mg/dL (0.6-1.2) 06/04/19 08:46 Est GFR ( Amer) > 60.0 ml/min (>90) 06/04/19 08:46 Est GFR (Non-Af Amer) > 60.0 ml/min 06/04/19 08:46 BUN/Creatinine Ratio 21.3 06/04/19 08:46 Glucose 92 mg/dL (70-105) 06/04/19 08:46 POC Glucose 102 MG/DL (70 - 105) 06/09/19 20:39 Calcium 9.4 mg/dL (8.6-10.3) 06/04/19 08:46 Total Bilirubin 0.4 mg/dL (0.3-1.0) 06/04/19 08:46 AST 15 U/L (13-39) 06/04/19 08:46 ALT 8 U/L (7-52) 06/04/19 08:46 Alkaline Phosphatase 47 U/L (34-104) 06/04/19 08:46 Troponin I 0.01 ng/mL (0.01-0.05) 06/04/19 08:46 Total Protein 6.3 gm/dL (6.0-8.3) 06/04/19 08:46 Albumin 3.9 gm/dL (3.7-5.3) 06/04/19 08:46 Globulin 2.4 gm/dL 06/04/19 08:46 Albumin/Globulin Ratio 1.6 (1.0-1.8) 06/04/19 08:46 Triglycerides 42 mg/dL (<150) 06/04/19 09:12 Cholesterol 175 mg/dL (<200) 06/04/19 09:12 LDL Cholesterol Direct 86 mg/dL (75-193) 06/04/19 09:12 HDL Cholesterol 71 mg/dL (23-92) 06/04/19 09:12 TSH 1.40 uIU/ml (0.34-5.60) 06/04/19 08:46 Salicylates < 25.0 mg/L (30.0-100.0) L 06/04/19 08:46 Acetaminophen < 10.0 ug/mL (10.0-30.0) L 06/04/19 08:46 Ethyl Alcohol < 10 mg/dL (0-10) 06/04/19 08:46 RPR NONREACTIVE (NONREACTIVE) 06/04/19 09:12 - Physical Exam Vitals and I&O: Vital Signs Temp 98.6 F 06/09/19 14:00 Pulse 76 06/09/19 14:00 Resp 20 06/09/19 14:00 BP 120/68 06/09/19 14:00 Pulse Ox 96 06/09/19 14:00 Intake & Output 06/09/19 06/10/19 06/10/19 18:59 06:59 18:59 Intake Total 899 Balance 899 Intake: Oral 899 Other: # Voids 3 # Bowel Movements 1 Active Medications: Current Medications Acetaminophen (Tylenol) 650 mg PO Q4HR PRN PRN Reason: Mild Pain / Temp above 100 Stop: 08/03/19 11:14 Al Hydrox/Mg Hydrox/Simethicone (Maalox) 30 ml PO Q4HR PRN PRN Reason: GI DISTRESS Stop: 08/03/19 11:14 Docusate Sodium (Colace) 100 mg PO BID RANJAN Stop: 08/03/19 16:59 Last Admin: 06/09/19 17:21 Dose: 100 mg Gabapentin (Neurontin) 100 mg PO BID RANJAN Stop: 08/03/19 16:59 Last Admin: 06/09/19 17:21 Dose: 100 mg Ibuprofen (Motrin) 600 mg PO Q8H PRN PRN Reason: PAIN Stop: 08/03/19 11:31 Lorazepam (Ativan) 0.5 mg PO Q4HR PRN; Protocol PRN Reason: Anxiety Stop: 07/04/19 11:14 Lorazepam (Ativan) 1 mg PO BID RANJAN; Protocol Stop: 08/04/19 16:59 Last Admin: 06/09/19 17:21 Dose: 1 mg Magnesium Hydroxide (Milk Of Magnesia) 30 ml PO HS PRN PRN Reason: Constipation Multivitamins/Vitamin C (Theragran) 1 tab PO DAILY RANJAN Stop: 08/04/19 08:59 Last Admin: 06/09/19 09:14 Dose: 1 tab Olanzapine (Zyprexa Zydis) 5 mg PO Q8HR PRN; Protocol PRN Reason: Agitation Stop: 08/03/19 11:32 Olanzapine (Zyprexa) 15 mg PO HS RANJAN; Protocol Stop: 08/08/19 20:59 Last Admin: 06/09/19 21:03 Dose: 15 mg Trazodone HCl (Desyrel) 50 mg PO HS RANJAN; Protocol Stop: 08/03/19 20:59 Last Admin: 06/09/19 21:03 Dose: 50 mg Zolpidem Tartrate (Ambien) 5 mg PO HS PRN PRN Reason: Insomnia Stop: 08/03/19 11:14 General: Alert, No acute distress Cardiovascular: Regular rate, Normal S1, Normal S2 Lungs: Clear to auscultation, Normal air movement Abdomen: Bowel sounds, Soft Assessment/Plan - Assessment Assessment: * Agitation * Acute Psychosis * Depression * Schizophrenia * Bipolar Disorder * Hypertension * Diabetes Mellitus * Dyslipidemia * Dementia - Plan Plan: * Continue current medications * Obtain labs in am * Further per psychiatry * [employer] for discharge planning/placement Nutritional Asmnt/Malnutr-PDOC - Dietary Evaluation Malnutrition Findings (Please click <Entered> for more info): Nutritional Asmnt/Malnutrition Start: 06/09/19 12: 55 Text: Status: Complete Freq: Protocol: Document 06/09/19 12:57 SHERRI (Rec: 06/09/19 13:00 SHERRI [id number]) Nutritional Asmnt/Malnutrition Patient General Information Nutritional Screening Moderate Risk Diagnosis PSYCHOSIS Pertinent Medical Hx/Surgical Hx HTN, DM, BKA, DEPRESSION, SCHIZOPHRENIA, BIPOLAR DISORDER Subjective Information PT IS A 68 YEAR OLD FEMALE FROM LONG TERM ADMITTED D/T ONSET AGITATION AND HOSTILE BEHAVIOR X2 DAYS. PT HAS BEEN EATING WELL, BETWEEN 75-100% OF MEALS. PT HAS HX OF DM, GLUCOSE WAS WNL (92) ON ADMITTANCE. HT: 54 WT: 110 LB (50 KG) BMI: 18.89 (NORMAL) GI: WNL, SOFT, NON-TENDER BM: 06/07 X 1 I/O: 1080/NOT NOTED SKIN: WNL, INTACT MARIANGEL: 17 [facility] ENERGY NEEDS: ( GERIATRIC, CBW) 2452-0218 KCALS (25-30 KCALS/ KG) 50-60 G PRO (1.0-1.2 G/KG) 6346-8905 ML (25-30 ML/KG) PT PO INTAKE: ESTIMATED 90% MEALS PER MEAL/NUTRITION ACTIVITY RECORD. DIETARY IS CURRENTLY PROVIDING AN ESTIMATED 2100 KCALS AND 130 GM PRO TO MEET 100+% KCAL AND 100+% PRO NEEDS. Current Diet Order/ Nutrition Support [facility] Pertinent Medications MAALOX (PRN), COLACE, MOM (PRN ), THEREGRAN Pertinent Labs 06/04: HGB/HCT 11.8/35.1 Nutritional Hx/Data Height 1.63 m Height (Calculated Centimeters) 162.6 Current Weight (lbs) 49.895 kg Weight (Calculated Kilograms) 49.9 Weight (Calculated Grams) 76985.2 [place] Body Weight 120 LB (54.55 KG) % [place] Body Weight 92 Body Mass Index (BMI) 18.8 Weight Status Approriate GI Symptoms GI Symptoms None Last BM 06/07 X 1 Skin Integrity/Comment: WNL, INTACT MARIANGEL: 17 Current %PO Good (75-100%) Estimated Nutritional Goals BEE in Kcals: Using Current wt Calories/Kcals/Kg 25-30 Kcals Calculated 5263-5401 Protein: Using Current wt Protein g/k.0-1.2 Protein Calculated 50-60 Fluid: ml 2315-2380 ML (25-30 ML/KG) Nutritional Problem No current Nutrition Prob Problem NO NUTRITION DIAGNOSIS AT THIS TIME. Etiology N/A Signs/Symptoms: N/A Malnutrition Related to Morbid Obesity Malnutrition related to morbid obesity No Intervention/Recommendation Comments CONTINUE WITH [facility] DIET ORDERED. Expected Outcomes/Goals Expected Outcomes/Goals 1. PO INTAKE TO CONTINUE TO MEET > 75% OF NUTRITIONAL NEEDS. 2. MONITOR PO INTAKE, WT, NUTRITION RELATED LABS AND SKIN INTEGRITY. 3. F/U LOW RISK IN 7 DAYS, 06/17
[2019-06-10] MEDS: Multivitamin Tab PO SCH (09:37)
--- NOTE | 2019-06-10 16:39 | Discharge Summary ---
DATE OF DISCHARGE: 06/10/2019 HISTORY OF PRESENT ILLNESS: A 68-year-old female, agitated, aggressive, [facility] and they could not control her behavior, is conserved, history of schizophrenia. PAST PSYCHIATRIC HISTORY: Multiple admissions in the past. MENTAL STATUS EXAMINATION: Please see full psych eval for details. PROVISIONAL DIAGNOSIS: Schizophrenia. HOSPITAL COURSE: After initial assessment, the patient was restarted on medications. Medications were adjusted and titrated, Zyprexa increased. Over hospital course, mood, improved, affect improved. She was somewhat calmer, more cooperative, getting along better with staff and peers, not as aggressive. By 06/10/2019, she was calm, no combative behaviors and step down to a snf. CONDITION UPON DISCHARGE: Improved, allowing ADLs. Mood "fine." Affect flat. Thought processes were tangential, but redirectable. No SI, no HI. No psychosis, better impulse control. PROVISIONAL DIAGNOSIS: Schizophrenia. PROGNOSIS: The patient follows up with outpatient mental health services and remains compliant with treatment. Prognosis will improve, otherwise guarded. [facility]# [id number]
== END 2019-06-10 17:10 | DRG 885 ==
LOC: ER 08:15 → GERO2 10:52
PROVIDERS: ADMIT Psychiatry & Neurology Psychiatry; ATTEND Psychiatry & Neurology Psychiatry
DX: F20.0 Paranoid schizophrenia (principal); I10 Essential (primary) hypertension; E11.9 Type 2 diabetes mellitus without complications; F03.90 Unspecified dementia, unspecified severity, without behavioral disturbance, psychotic disturbance, mood disturbance, and anxiety; F32.9 Major depressive disorder, single episode, unspecified; E78.5 Hyperlipidemia, unspecified; Z88.5 Allergy status to narcotic agent; Z89.512 Acquired absence of left leg below knee
CPT/HCPCS: 36415-UA; 80053-TC; 80061-TC; 80320-TC; 80329-TC; 82948-90; 83036-90; 84443-TC; 84484-TC; 85025-TC; 86592-TC; 93005; J1200; J1630; J2060; J7051